=== PATIENT | female | born 1960 | race Caucasian/White ===

== ENCOUNTER → 2017-10-20 | Outpatient (CLI) | payer OTHER ==
[~2017-10-20] MED LIST: ALBUAER2 INH; AMLO-110 PO; ASPCH81X PO; CHOL2000 PO; FLUT50SP14 NAE; IPRA0.037 NAE; LEVO75TA5 PO; LOSA1TAB38 PO; MAGN500T4 PO; MOME200A INH; MULT-506 PO; PRLSR20 PO; PSEU60TA80 PO
--- NOTE | 2017-10-20 10:58 | DIAGNOSTIC IMAGING REPORT ---
SINUSES MIN 3 VIEWS ROUTINE CLINICAL HISTORY: Shortness of breath. COMPARISON STUDY: No previous studies for comparison. FINDINGS: Asymmetric diminished aeration of the right maxillary sinus is noted. There is a possible right maxillary sinus air-fluid level. Otherwise, the sinuses appear well aerated. IMPRESSION: Suspected right maxillary sinus mucosal thickening with a possible air-fluid level. Electronically signed by: Ted Joel M.D. 10/20/2017 10:56 AM Dictated Date/Time: 10/20/2017 10:54 AM
== END | disposition home or self-care (01) ==
LOC: C.RAD1850 10:43
PROVIDERS: ATTEND Internal Medicine Pulmonary Disease
DX: R06.02 Shortness of breath (principal); R93.0 Abnormal findings on diagnostic imaging of skull and head, not elsewhere classified

== ENCOUNTER → 2017-10-31 | Outpatient (CLI) | payer OTHER ==
[~2017-10-31] MED LIST changes: +OPTIRAY 320 IV PRN
--- NOTE | 2017-10-31 12:20 | DIAGNOSTIC IMAGING REPORT ---
CT SCAN OF THE CHEST WITH IV CONTRAST CLINICAL HISTORY: Dyspnea. Asthma. COMPARISON STUDY: Chest x-ray dated 10/23/2015. Abdominal CT dated 04/17/2012. TECHNIQUE: Following the IV administration of 87 cc of Optiray 320, CT scan of the thorax was performed from the thoracic inlet to the upper abdomen. Images are reviewed in the axial, sagittal, and coronal planes. IV contrast was administered without complication. A dose lowering technique was utilized adhering to the principles of ALARA. CT DOSE: 725.30 mGy.cm FINDINGS: Thyroid: Imaged portions of the thyroid gland are normal in size and attenuation. Subcentimeter low-attenuation nodules are identified. A coarse calcification is seen in the left lobe. Thoracic aorta: The thoracic aorta is normal in caliber and demonstrates standard 3-vessel arch anatomy. No dissection is seen. Pulmonary vasculature: The pulmonary trunk is normal in caliber. There are no filling defects identified in the central pulmonary vessels to indicate pulmonary embolus. Note that this examination was not protocoled for evaluation of the pulmonary arteries. Heart: The heart is normal in size and without pericardial effusion. The coronary arteries are densely calcified. Lungs and pleural spaces: There are scattered calcified granulomas. The lungs and pleural spaces are otherwise clear. The trachea and central airways are patent. Mediastinum: There is no mediastinal lymphadenopathy. Christine: Clear. Axillae: There is no axillary lymphadenopathy. Upper abdomen: Cholecystectomy clips are noted. Partially visualized upper abdominal viscera is within normal limits. Skeletal structures: The skeletal structures are osteopenic. Mild degenerative change is noted throughout the thoracic spine. No lytic or blastic bony lesions are seen. IMPRESSION: The lungs are clear. Electronically signed by: Reinaldo Gerber M.D. 10/31/2017 12:18 PM Dictated Date/Time: 10/31/2017 12:15 PM
[2017-10-31 12:26] LABS: PTT PATIENT 25.5 SECONDS (21.0-31.0)
[2017-10-31 12:39] LABS: ALBUMIN 3.9 gm/dl (3.4-5.0); ALT/SGPT 25 U/L (12-78); AST/SGOT 14 U/L (15-37); BLOOD UREA NITROGEN 23 mg/dl (7-18); CALCIUM 9.8 mg/dl (8.5-10.1); CARBON DIOXIDE 28 mmol/L (21-32); GLUCOSE 85 mg/dl (70-99); POTASSIUM 4.1 mmol/L (3.5-5.1); SODIUM 137 mmol/L (136-145)
[2017-10-31 12:40] LABS: BASO % 0.6 %; BASO ABS # 0.04 K/uL (0-0.2); EOS % 1.6 %; HEMATOCRIT 42.3 % (37-47); HEMOGLOBIN 14.6 g/dL (12.0-16.0); IG# 0.02 K/uL (0.00-0.02); LYMPH % 37.7 %; LYMPH ABS # 2.43 K/uL (1.2-3.4); MEAN CELL VOLUME 88.5 fL (80-100); MEAN CORPUSCULAR HEMOGLOBIN 30.5 pg (25-34); MEAN CORPUSCULAR HGB CONC 34.5 g/dl (32-36); MEAN PLATELET VOLUME 11.5 fL (7.4-10.4); MONO % 4.8 %; MONO ABS # 0.31 K/uL (0.11-0.59); NEUT ABS # 3.55 K/uL (1.4-6.5); PLATELET COUNT 234 K/uL (130-400); RED CELL DISTRIBUTION WIDTH CV 13.1 % (11.5-14.5); RED CELL DISTRIBUTION WIDTH SD 42.9 fL (36.4-46.3); WHITE BLOOD COUNT 6.45 K/uL (4.8-10.8)
[2017-10-31 12:51] LABS: ALKALINE PHOSPHATASE 89 U/L (45-117); TOTAL PROTEIN 7.6 gm/dl (6.4-8.2)
== END | disposition home or self-care (01) ==
LOC: C.CTS 10:21
PROVIDERS: ATTEND Internal Medicine Pulmonary Disease
DX: J45.909 Unspecified asthma, uncomplicated (principal)

== ENCOUNTER → 2017-11-11 | Day surgery (SDC) | payer OTHER ==
[2017-11-11] VITALS (7 sets, daily range): BP systolic 103–119; BP diastolic 61–72; PULSE 54–73; TEMP 36.3–37.1; O2SAT 93–100
[~2017-11-11] MED LIST changes: +FENTANYL CITRATE INJ 50 MCG/1 ML 2 ML VIAL IV ONE; +LEVALBUTEROL 1.25MG/3ML NEB INH ONE; +LIDOCAINE HCL 2% LOCAL 50ML VIAL INSTIL ONE; +LIDOCAINE VISCOUS 2% 100ML TOP ONE; +MIDAZOLAM HCL 5 MG/ML 1 ML VIAL IV ONE; -OPTIRAY 320 IV PRN; +OXYMETAZOLINE HCL 0.05% NA SPR 15 ML BTL ONE
--- NOTE | 2017-11-11 07:35 | History & Physical Bridge Note ---
H&P Re-Evaluation Bridge Note: I have examined the patient, reviewed the History & Physical and in the interval since the performance of the History & Physical I have noted the following changes of clinical significance: No changes noted
--- NOTE | 2017-11-11 07:35 | Pre Sedation Assessment ---
Pre Sedation Assessment General Date of Sedation: Nov 11, 2017. Pre-Sedation Airway Assessment Smoking Status: Former Smoker Mallampati Classification: Class II ASA Classification: Class III Procedure Planning Contraindications for Sedation: None Current Medications Reviewed: Yes Notes The planned sedation has been discussed with the patient. Informed Consent was obtained. I have identified the patient, determined the appropriateness of sedation and have assessed the patient immediately prior to the procedure. All medicine(s) and interventions are by my order.
--- NOTE | 2017-11-11 11:12 | [facility] Operative Report ---
Operative Report Operative Date Nov 11, 2017. Pre-Operative Diagnosis COUGH Post-Operative Diagnosis COUGH Procedure(s) Performed BRONCHOSCOPY Surgeon DR MAURER Estimated Blood Loss 0 Findings Chronic Mucopurulent Bronchitis Specimens LEFT UPPER LOBE BRONCHEAL ALVEOLAR LAVAGE AND BRUSHING Complication(s) None Disposition I attest to the content of the Intraoperative Record and any orders documented therein. Any exceptions are noted below.
--- NOTE | 2017-11-11 11:13 | Post Sedation Assessment ---
Post Sedation Assessment General Date of Sedation Nov 11, 2017. Vital Signs: Vital Signs Past 12 Hours Date Time Temp Pulse Resp B/P (MAP) Pulse Ox O2 Delivery O2 Flow Rate FiO2 11/11/17 11:03 75 18 119/67 99 Nasal Cannula 4 11/11/17 10:58 77 18 121/76 96 Nasal Cannula 4 11/11/17 10:53 71 21 127/80 99 Oxymask 6 11/11/17 10:48 75 18 135/84 98 Oxymask 6 11/11/17 10:43 80 18 139/83 96 Oxymask 12 11/11/17 10:38 80 18 124/70 96 Oxymask 12 11/11/17 10:33 78 23 142/84 95 Oxymask 12 11/11/17 10:31 69 23 139/82 94 Oxymask 6 11/11/17 09:46 36.9 67 20 108/72 (84) 97 Room Air Post Procedure Recovery Score Activity: (2) Moves 4 extremities * Respiration: (2) Deep breath/cough Circulation: (2) +/-20% PreAnes Value Consciousness: (2) Fully Awake Oxygen Saturation: (1) O2 needed for >90% Post Anesthesia Score: 9 Discharge Sedation Level of Care: Fast Track Phase II Post Sedation Plan On clinical assessment, the patient appears to have tolerated the sedation without complications. Patient is recovering as anticipated. Patient will continue to be monitored by nursing and may be discharged when sedation discharge criteria are met per below protocol. Upon Completions of procedure and additional 15 minutes continue every 5 minute vital signs and the P.A.R. score; then discharge to a Phase I or Fast Track to Phase II per the following guidelines: * Discharge Patient to appropriate Phase II area if PAR is 8 or greater or return to pre- procedure baseline. The post - procedure orders will be as directed. * If PAR score is less than 8 or not return to pre-procedure baseline then patient will follow Phase I monitoring till PAR is reached for Phase II. The Phase I may be done in procedure room or may call to secure a Phase I area. * If naloxone or flumazenil are used for reversal, hold in Phase I for an additional 60 -120 minutes before discharge to Phase II. Please call the Sedation Physician to re-evaluate and complete post-note for discharge to Phase II area. Do NOT discharge from procedure sedation or Phase 1 until post- sedation evaluation note is complete by procedure /sedation MD Sedation Discharge Instructions to be given to the patient at discharge to home.
--- NOTE | 2017-11-11 11:16 | Discharge Instructions ---
Discharge Instructions Date of Service Nov 11, 2017. Admission Reason for Admission: Asthma, Shortness Of Breath Discharge Discharge Diagnosis / Problem: Chronic Mucopurulent Bronchitis Discharge Goals Goal(s): Diagnostic testing Activity Recommendations Activity Limitations: resume your previous activity Lifting Limitations: none Exercise/Sports Limitations: none May Resume Sexual Activity: when tolerated Shower/Bathe: no limitations Driving or Machine Use: resume 1 day after discharge None . Instructions / Follow-Up Instructions / Follow-Up ACTIVITY RECOMMENDATIONS: * Rest today, resume normal activity tomorrow. * Do not drive today. SPECIAL CARE INSTRUCTIONS: * Call your physician if you experience any chest or shoulder pain, fever, coughing, spitting up blood (more than 2 teaspoons) or excessive shortness of breath. * Remove dressing from IV site (where needle was placed into the vein) after 2 hours. Apply a warm, moist compress to site if irritation occurs. Call physician if site becomes red or painful to touch. FOLLOW UP VISIT: * Keep any scheduled doctor appointments. Current Hospital Diet Patient's current hospital diet: regular Discharge Diet Recommended Diet: Regular Diet Procedures Procedures Performed: BRONCHOSCOPY Pending Studies Studies pending at discharge: no Medical Emergencies . Who to Call and When: Medical Emergencies: If at any time you feel your situation is an emergency, please call 911 immediately. . Non-Emergent Contact Non-Emergency issues call your: Remote Recruiter Call Non-Emergent contact if: temperature is above 101 . . "Provider Documentation" section prepared by Zaire West. .
--- NOTE | 2017-11-11 11:36 | OPERATIVE REPORT ---
DATE OF OPERATION: 11/11/2017 PROCEDURE: Fiberoptic bronchoscopy with bronchoalveolar lavage. INDICATIONS: Chronic cough and chest congestion in a previous smoker. ANESTHESIA PREOPERATIVELY: None. ANESTHESIA DURING THE PROCEDURE: IV Versed 5 mg, IV fentanyl 50 mcg, 20 mL of 2% Xylocaine spray above and below the cords, and 4% viscous Xylocaine intranasally. DESCRIPTION OF PROCEDURE: Fiberoptic bronchoscope was inserted into the right naris with minimal difficulty and passed to the level of the true vocal cords. The cords appear to approximate normally with phonation without evidence for lesions or paralysis. The area was anesthetized with 2% Xylocaine spray and the scope was then introduced into the subglottic region and trachea without difficulty. The dwight was sharp. Right main stem bronchus was explored initially and no endobronchial lesion was seen. Right upper lobe, the apical posterior-anterior segments, bronchus intermedius, right middle lobe, the medial and lateral segments and all basilar segments of the right lower lobe were found to be free of endobronchial lesions down to subsegmental bronchi. A moderate amount of mucopurulent secretion was lavaged from all lobar segments until clear. Left tracheobronchial tree was explored and no endobronchial lesion was seen. Left upper lobe and lingual subdivision showed moderate to severe inflammatory mucosal change with mild mucosal irregularity. This area was lavaged with normosol and the aspirate sent for appropriate studies. Brushings x2 were taken for cytologic preparation from the left upper lobe orifice. No biopsies were attempted. Left lower lobe with its respective basal segments were free of endobronchial lesions down to subsegmental bronchi. Left lower lobe was copiously lavaged with normosol and the aspirate sent for appropriate studies as well. The procedure was terminated. The patient was given a nebulizer treatment with Xopenex 1.25 mg and transferred to the medical treatment unit in hemodynamically stable. No signs of respiratory compromise. We will await microbiological and cytologic examination of the bronchial washings and brushings. I attest to the content of the Intraoperative Record and any orders documented therein. Any exception s are noted below.
== END | disposition home or self-care (01) ==
LOC: C.ACU 08:09
PROVIDERS: ATTEND Internal Medicine Pulmonary Disease
DX: R05 Cough (principal); R09.89 Other specified symptoms and signs involving the circulatory and respiratory systems; R06.02 Shortness of breath; I10 Essential (primary) hypertension; K21.0 Gastro-esophageal reflux disease with esophagitis; E66.01 Morbid (severe) obesity due to excess calories; J45.909 Unspecified asthma, uncomplicated; E78.5 Hyperlipidemia, unspecified; E03.9 Hypothyroidism, unspecified; Z87.891 Personal history of nicotine dependence; Z90.89 Acquired absence of other organs; Z90.49 Acquired absence of other specified parts of digestive tract; Z90.710 Acquired absence of both cervix and uterus; Z79.899 Other long term (current) drug therapy; Z79.82 Long term (current) use of aspirin; Z80.3 Family history of malignant neoplasm of breast; Z82.3 Family history of stroke; Z82.49 Family history of ischemic heart disease and other diseases of the circulatory system

== ENCOUNTER 2021-03-10 11:50 | Inpatient (IN) ==
[2021-03-10] MEDS ORDERED: ONDANSETRON INJ 2 MG/ML 2 ML VIAL IV STA (13:03)
[2021-03-10] MEDS ORDERED: SODIUM CHLORIDE 0.9% 500 ML IV STA (13:03)
--- NOTE | 2021-03-10 13:07 | Emergency Department Note ---
Impression & Plan Partial bowel obstruction, Colonic mass ED Provider Note NAME: JANINE DALTON AGE: 60 SEX: F : 1960 ARRIVES VIA: Walk-In INFORMANT: Patient, ED PROVIDER(S): Zaire Gomez DO CHIEF COMPLAINT: Abdominal pain HPI: The patient is a 60-year-old female who presented to the emergency department for an evaluation of left-sided abdominal pain. The patient states she is had abdominal pain which has been going on for a few months. She states that she went to see her family doctor for these symptoms. She had laboratory studies as well as a CAT scan done last week. The CAT scan she states was positive for possible colon mass. She is arranged to see a follow-up specialist but does not know when this appointment is. The patient notices nausea but no vomiting. She notices no black or bloody bowel movements. She states the pain is moderate to severe. She states she has no chest pain. She denies having any difficulty breathing. She is noticed no lower extremity swelling or pain. The patient states her symptoms are moderate to severe and worsened with palpation over the lower abdomen. ROS: See above HPI for pertinent positives & negatives. A total of 10 systems reviewed and were otherwise negative. PAST MEDICAL HISTORY: See Below PAST SURGICAL HISTORY: See Below FAMILY HISTORY: See Below SOCIAL HISTORY: See Below HOME MEDICATIONS: See Below ALLERGIES: See Below VITALS: See Below PHYSICAL EXAMINATION: GENERAL: The patient is awake and alert. She is very anxious appearing. EYES: The conjunctivae are clear. The pupils are round and reactive. EARS, NOSE, MOUTH AND THROAT: The nose is without any evidence of any deformity. NECK: The neck is nontender and supple. RESPIRATORY: Normal respiratory effort is noted there is no evidence of wheezing rhonchi or rales CARDIOVASCULAR: Regular rate and rhythm noted there no murmurs rubs or gallops normal S1 normal S2. GASTROINTESTINAL: Diminished moderately distended and diffusely tender. There is guarding in the left lower quadrant. MUSCULOSKELETAL/EXTREMITIES: There is no evidence of gross deformity full range of motion is noted in the hips and shoulders. SKIN: There is no obvious evidence of any rash. There are no petechiae, pallor or cyanosis noted. NEUROLOGIC: Patient is awake alert and oriented x3. MEDICAL DECISION MAKING: The patient is a 60-year-old female who presented to the emergency department for an evaluation of flank pain. The patient had abdominal pain for the last few weeks. She had an outpatient CT that did show a large colonic mass which was causing a partial obstruction. I discussed the patient's laboratory and radiographic studies with her. She was treated with IV fluids and IV pain medication. Ultimately I felt the patient would be better as an inpatient for further management and work-up of this colonic mass. She was reevaluated multip le times. I discussed her case with the on-call [facility]. They have agreed to evaluate the patient in the emergency department for further management and disposition. Likely the patient will require a tissue biopsy to further manage this case. Triage Nursing notes reviewed. Prior medical records reviewed Vital Signs: reviewed and remarkable for hypoxia and elevated blood pressure. Differential diagnosis: Etiologies such as appendicitis, diverticulitis, obstruction, inflammatory bowel disease, renal colic, PUD, biliary pathology, pancreatitis, mesenteric ischemia, aortic pathology, infections, genitourinary, UTI, perforated viscus, as well as others were entertained. ER treatment provided: See below Diagnostics interpreted by me: ECG: none Cardiac Monitoring: An order was placed for continuous cardiac monitoring. The monitor shows a rate of 65 bpm sinus with rhythm. Laboratory studies: As stated above and show below. Imaging studies: See below Consultation(s): 1415: I discussed this case with Dr. Virk who is on-call for the [facility]. He will evaluate the patient in the emergency department for further management and disposition. Past Med/Surg History Medical History Allergic rhinitis Asthma inhalers daily/prn and nebulizer prn Benign essential hypertension Chronic reflux esophagitis Chronic sinusitis Diverticulosis Dyslipidemia Elevated IgE level History of kidney stones History of pancreatitis "quite a few years ago" Hypothyroidism Irritable bowel syndrome Morbid obesity with BMI of 40.0-44.9, adult Osteoarthrosis Surgical History H/O: hysterectomy Total abdominal with removal of both ovaries History of ankle surgery left achilles tendon--hardware in place History of section x2 History of colonoscopy History of tooth extraction all teeth S/P appendectomy S/P cholecystectomy (01/2013) S/P sinus surgery January 2013 Family History Mother , age 72 Breast cancer, Onset Age: 60 Grandfather (Paternal) Diabetes Myocardial infarction Father Stroke Other No family history of adverse response to anesthesia Denies family history of Ovarian cancer Prostate cancer Lung cancer Colorectal cancer Social History Smoking Status: Former smoker packs per day: 0.25; Years Smoked: 6; Number of Years Since Quit: 33; Second Hand Exposure: No; Hx Alcohol Use: No Hx Substance Use: No Preferred Language: Ecuadorean Communication Ability: Effective Visual Impairment: No Limitations Hearing Ability: Normal Financial Analyst Intern Required: No Beliefs That Will Affect Care: None marital status: Current Living Situation: Spouse current occupational status: employed 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 Feels Safe at Home: Yes Childhood Exposure to Second-Hand Smoke: No Diet Comment: regular caffeine: Yes (coffee) during the past year weight has: remained stable Dental Care, Regularly: Yes Physical Activity Frequency: 3-4 Times per Week Physical Activity Frequency Comment: walking Seatbelt Use: always Sunscreen Use: No Assistive Devices: Denture - Upper, Denture - Lower, Glasses and Nebulizer Allergies Allergies Allergy/AdvReac Type Severity Reaction Status Date / Time oak Allergy Mild sneezy, Verified 03/10/21 13:45 watery eyes No Known Drug Allergies AdvReac Verified 03/10/21 13:45 DUST MITES Allergy Mild sneezy, Uncoded 03/10/21 13:45 watery eyes Home Meds Home Medications Medication Instructions Recorded Confirmed albuterol sulfate 90 mcg/actuation 2 puffs INHALATION Q4H PRN #3 gm 03/15/19 03/10/21 aerosol inhaler cholecalciferol (vitamin D3) 50 2,000 units PO QAM #90 cap 06/13/19 03/10/21 mcg (2,000 unit) capsule magnesium oxide 500 mg capsule 500 mg PO BID cap 06/13/19 03/10/21 amlodipine 5 mg tablet 5 mg PO QAM 03/10/21 03/10/21 aspirin 81 mg tablet,delayed 81 mg PO DAILY 03/10/21 03/10/21 release fluticasone propionate 50 2 sprays INTRANASAL BID 03/10/21 03/10/21 mcg/actuation nasal spray,suspension levothyroxine 75 mcg tablet 75 mcg PO QAM 03/10/21 03/10/21 losartan 100 mg tablet 100 mg PO QAM 03/10/21 03/10/21 montelukast 10 mg tablet 10 mg PO QPM 03/10/21 03/10/21 multivitamin 1 tab PO QAM 03/10/21 03/10/21 omeprazole 20 mg capsule,delayed 20 mg PO QAM 03/10/21 03/10/21 release Previous Rx's Medication Instructions Recorded albuterol sulfate 2.5 mg INHALATION Q4H PRN #1 box 04/27/19 ipratropium bromide 0.02 % 0.5 mg INHALATION Q4H PRN #360 ml 10/09/20 solution for inhalation diphenoxylate-atropine 2.5 1 tab PO QID PRN #360 tab 01/19/21 mg-0.025 mg tablet ipratropium bromide 21 mcg (0.03 2 spray INTRANASAL BID #90 ml 01/19/21 %) nasal spray sodium sul 1.479 gram-potas ch See Rx Instructions PO .COMPLEX 03/10/21 0.188 gram-magnes sul 0.225 gram #24 tab tablet (Sutab) Results & Data (ED) Vital Signs Vital Signs - 24 hr 03/10/21 11:55 03/10/21 13:41 03/10/21 14:37 Temperature 36.8 C Temperature Source Temporal Artery Scan Pulse Rate 114 H Pulse Rate [Right Finger] 62 Pulse Rhythm [Right Finger] Regular Pulse Strength [Right Finger] Normal Respiratory Rate 20 20 Respiratory Effort / Characteristics Non-Labored Non-Labored Spontaneous Respiratory Depth Normal Normal Respiratory Pattern Regular Blood Pressure 166/85 H Blood Pressure [Right Arm] 164/97 H Blood Pressure Mean 112 Blood Pressure Mean [Right Arm] 119 Blood Pressure Position Sitting Blood Pressure Position [Right Arm] Pulse Oximetry 92 100 Oxygen Delivery Method Room Air Room Air Nasal Cannula Oxygen Flow Rate 2 Sepsis Recent Fever Within 48 Hours No Sepsis New/Unexplained Change in Mental Status No Sepsis Action Taken by Nursing No Action Required 03/10/21 15:38 Temperature Temperature Source Pulse Rate Pulse Rate [Right Finger] 55 L Pulse Rhythm [Right Finger] Regular Pulse Strength [Right Finger] Normal Respiratory Rate 18 Respiratory Effort / Characteristics Non-Labored Spontaneous Respiratory Depth Normal Respiratory Pattern Regular Blood Pressure Blood Pressure [Right Arm] 164/97 H Blood Pressure Mean Blood Pressure Mean [Right Arm] 119 Blood Pressure Position Blood Pressure Position [Right Arm] Lying Pulse Oximetry 100 Oxygen Delivery Method Nasal Cannula Oxygen Flow Rate 2 Sepsis Recent Fever Within 48 Hours Sepsis New/Unexplained Change in Mental Status Sepsis Action Taken by [facility] Medications Current Medication List: was personally reviewed by me Laboratory Data Attestation: I reviewed the patient's lab results. Result diagrams: 03/10/21 12:53 03/10/21 12:53 Lab Results 03/10/21 03/10/21 03/10/21 Range/Units 12:53 12:53 14:30 WBC 8.77 (4.8-10.8) K/uL RBC 5.12 (4.2-5.4) M/uL Hgb 15.0 (12.0-16.0) g/dL Hct 44.2 (37-47) % MCV 86.3 (80-100) fL MCH 29.3 (25-34) pg MCHC 33.9 (32-36) g/dL RDW Std Deviation 42.0 (36.4-46.3) fL RDW Coeff of Mamadou 13.2 (11.5-14.5) % Plt Count 257 (130-400) K/uL MPV 10.8 H (7.4-10.4) fL Immature Gran % (Auto) 0.3 % Neut % (Auto) 70.4 % Lymph % (Auto) 21.0 % Otoe % (Auto) 7.5 % Eos % (Auto) 0.7 % Baso % (Auto) 0.1 % Neut # (Auto) 6.17 (1.4-6.5) K/uL Lymph # (Auto) 1.84 (1.2-3.4) K/uL Otoe # (Auto) 0.66 H (0.11-0.59) K/uL Eos # (Auto) 0.06 (0-0.5) K/uL Baso # (Auto) 0.01 (0-0.2) K/uL Immature Gran # (Auto) 0.03 H (0.00-0.02) K/uL Sodium 136 (136-145) mmol/L Potassium 3.4 L (3.5-5.1) mmol/L Chloride 105 (98-107) mmol/L Carbon Dioxide 27 (21-32) mmol/L Anion Gap 4.0 (3-11) BUN 17 (7-18) mg/dl Creatinine 1.56 H (0.6-1.2) mg/dl Est Cr Clr Drug Dosing 55.2 ml/min Est GFR ( Amer) 41.1 ml/min Est GFR (Non-Af Amer) 35.5 ml/min BUN/Creatinine Ratio 10.7 (10-20) Glucose 114 H (70-99) mg/dl Calcium 9.6 (8.5-10.1) mg/dl Total Bilirubin 1.1 H (0.2-1) mg/dl AST 26 (15-37) U/L ALT 22 (12-78) U/L Alkaline Phosphatase 92 (45-117) U/L Total Protein 8.0 (6.4-8.2) gm/dl Albumin 3.9 (3.4-5.0) gm/dl Globulin 4.1 H (2.5-4.0) gm/dl Albumin/Globulin Ratio 1.0 (0.9-2) Lipase 38 L (73-393) U/L COVID-19 Eval Order Covid19 at [facility] SARS-CoV-2 (PCR) (Negative) 03/10/21 Range/Units 14:30 WBC (4.8-10.8) K/uL RBC (4.2-5.4) M/uL Hgb (12.0-16.0) g/dL Hct (37-47) % MCV (80-100) fL MCH (25-34) pg MCHC (32-36) g/dL RDW Std Deviation (36.4-46.3) fL RDW Coeff of Mamadou (11.5-14.5) % Plt Count (130-400) K/uL MPV (7.4-10.4) fL Immature Gran % (Auto) % Neut % (Auto) % Lymph % (Auto) % Oto[place] % (Auto) % Eos % (Auto) % Baso % (Auto) % Neut # (Auto) (1.4-6.5) K/uL Lymph # (Auto) (1.2-3.4) K/uL Otoe # (Auto) (0.11-0.59) K/uL Eos # (Auto) (0-0.5) K/uL Baso # (Auto) (0-0.2) K/uL Immature Gran # (Auto) (0.00-0.02) K/uL Sodium (136-145) mmol/L Potassium (3.5-5.1) mmol/L Chloride (98-107) mmol/L Carbon Dioxide (21-32) mmol/L Anion Gap (3-11) BUN (7-18) mg/dl Creatinine (0.6-1.2) mg/dl Est Cr Clr Drug Dosing ml/min Est GFR ( Amer) ml/min Est GFR (Non-Af Amer) ml/min BUN/Creatinine Ratio (10-20) Glucose (70-99) mg/dl Calcium (8.5-10.1) mg/dl Total Bilirubin (0.2-1) mg/dl AST (15-37) U/L ALT (12-78) U/L Alkaline Phosphatase (45-117) U/L Total Protein (6.4-8.2) gm/dl Albumin (3.4-5.0) gm/dl Globulin (2.5-4.0) gm/dl Albumin/Globulin Ratio (0.9-2) Lipase (73-393) U/L COVID-19 Eval Order SARS-CoV-2 (PCR) NEGATIVE (Negative) Administered Medications Morphine Sulfate (Morphine Sulfate 4 Mg/Ml 1 Ml Carp\\Vial) 4 mg IV Q15M PRN PRN Reason: Pain Stop: 03/24/21 13:02 Last Admin: 03/10/21 17:45 Dose: 4 mg Documented by: [id number] Admin: 03/10/21 14:48 Dose: 4 mg Documented by: [id number] Admin: 03/10/21 13:10 Dose: 4 mg Documented by: [id number] Ondansetron HCl (Ondansetron Inj 2 Mg/Ml 2 Ml Vial) 4 mg IV Q6H PRN PRN Reason: nausea Stop: 04/09/21 15:50 Last Admin: 03/10/21 18:57 Dose: 4 mg Documented by: [id number] Discontinued Medications Sodium Chloride (Nss) 500 mls @ 999 mls/hr IV .Q31M STA Stop: 03/10/21 13:33 Last Infusion: 03/10/21 14:00 Dose: 0 mls/hr Documented by: [id number] Admin: 03/10/21 13:10 Dose: 999 mls/hr Documented by: [id number] Ioversol (Optiray 320 100ml) 93 ml IV ONCE ONE Stop: 03/10/21 19:28 Last Admin: 03/10/21 19:28 Dose: 93 ml Documented by: [id number] Ondansetron HCl (Ondansetron Inj 2 Mg/Ml 2 Ml Vial) 4 mg IV NOW STA Stop: 03/10/21 13:04 Last Admin: 03/10/21 13:10 Dose: 4 mg Documented by: [id number] Imaging Data Radiologist's Impression: KUB X-Ray 03/10/21 13:08 XR KUB/Abdomen 1 view CLINICAL HISTORY: LLQ pain COMPARISON STUDY: No previous studies for comparison. FINDINGS: Multiple nondilated gas and stool-filled loops of bowel are seen. Moderate amount of stool is seen within right hemiabdomen. Cholecystectomy clips are seen. No definite free intra-abdominal gas is seen however evaluation is limited on supine view, also bilateral lung apices are outside the [id number]. Degenerative changes of the spine. IMPRESSION: 1. Nonobstructive bowel gas pattern. ACT 112: Negative or not required by law. The above report was generated using voice recognition software. It may contain grammatical, syntax or spelling errors. Electronically signed by: Isatu Baldwin DO 03/10/2021 2:12 PM Discharge Plan Visit Data Chief Complaint: Abdominal Pain Stated Complaint: SEVERE STOMACH PAIN ED Provider: Zaire Gomez Discharge Problem: Partial bowel obstruction, Colonic mass Patient Disposition: Being Evaluated by Hospitalist Condition: Good Discharge Instructions Interventions: ED Discharge Assessment Last Done: 03/10/21 20:08
[2021-03-10 13:08] LABS: Basophils # (auto) 0.01 K/uL (0-0.2); Basophils % (auto) 0.1 %; Eosinophils # (auto) 0.06 K/uL (0-0.5); Eosinophils % (auto) 0.7 %; Hematocrit (blood only) 44.2 % (37-47); Immature Granulocytes # (auto) 0.03 K/uL (0.00-0.02); Immature Granulocytes % (auto) 0.3 %; Lymphocytes # (auto) 1.84 K/uL (1.2-3.4); Mean Corpuscular Hemoglobin 29.3 pg (25-34); Mean Corpuscular Hgb Conc 33.9 g/dL (32-36); Mean Corpuscular Volume 86.3 fL (80-100); Mean Platelet Volume 10.8 fL (7.4-10.4); Monocytes # (auto) 0.66 K/uL (0.11-0.59); Monocytes % (auto) 7.5 %; Neutrophils # (auto) 6.17 K/uL (1.4-6.5); Neutrophils % (auto) 70.4 %; Platelet Count 257 K/uL (130-400); RDW Coefficient of Variation 13.2 % (11.5-14.5); Red Blood Count 5.12 M/uL (4.2-5.4); White Blood Count 8.77 K/uL (4.8-10.8)
[2021-03-10] MEDS: MoRPHine SULFATE 4 MG/ML 1 ML CARP\\VIAL IV PRN ×3 (13:10→17:45)
[2021-03-10 13:26] LABS: Albumin Level 3.9 gm/dl (3.4-5.0); BUN Creatinine Ratio 10.7 (10-20); Calcium 9.6 mg/dl (8.5-10.1); Creatinine Clr Calc Pharmacy 55.2 ml/min; Est GFR (African American) 41.1 ml/min; Est GFR (Non-African American) 35.5 ml/min; Potassium 3.4 mmol/L (3.5-5.1)
[2021-03-10 13:29] LABS: Bilirubin,Total 1.1 mg/dl (0.2-1); Globulin 4.1 gm/dl (2.5-4.0)
--- NOTE | 2021-03-10 14:14 | XRay Report ---
XR KUB/Abdomen 1 view CLINICAL HISTORY: LLQ pain COMPARISON STUDY: No previous studies for comparison. FINDINGS: Multiple nondilated gas and stool-filled loops of bowel are seen. Moderate amount of stool is seen within right hemiabdomen. Cholecystectomy clips are seen. No definite free intra-abdominal gas is seen however evaluation is limited on supine view, also bilat eral lung apices are outside the [id number]. Degenerative changes of the spine. IMPRESSION: 1. Nonobstructive bowel gas pattern. ACT 112: Negative or not required by law. The above report was generated using voice recognition software. It may contain grammatical, syntax o r spelling errors. Electronically signed by: Isatu Baldwin DO 03/10/2021 2:12 PM
--- NOTE | 2021-03-10 16:11 | History & Physical Report ---
Date of Service March 10, 2021 Assessment & Plan (1) Intractable abdominal pain: Plan: * 60-year-old white female with ongoing abdominal pain and recent CT scan showing presumed colonic mass with obstructing pattern presented with intractable abdominal pain. KUB relatively benign; however, would expect bowel obstruction (mechanical). * Will obtain CT of the abdomen and pelvis to confirm * Patient will be kept n.p.o. for bowel rest * No need for NG tube at this time as pain is controlled with 1 dose of morphine. Abdomen is nondistended and she is not vomiting. If her clinical status changes, would advance an NG tube for bowel decompression * Initiate IV fluids * Consult GI and general surgery. Patient will likely need colonoscopy and possibly partial bowel resection. * Continue morphine as needed for pain and Zofran as needed for nausea * IV Ofirmev as needed for headache, fevers, pain * Given presumed colonic mass seen on imagingsuspect malignant in nature. Will obtain a CEA level for baseline (2) Hypokalemia: Plan: * Likely due to decreased oral intake and multiple loose bowels * Supplement with Anitha coronado and follow-up with lab data in a.m. to trend (3) CRISTI (acute kidney injury): Plan: * Likely related to volume depletion from poor oral intake and persistent loose bowels * IV hydration initiated * Follow-up labs in the a.m. to trend (4) Colonic mass: Plan: * See above (5) Hypothyroidism: Plan: * Hold oral meds for now given n.p.o. status (6) Irritable bowel syndrome: (7) Dyslipidemia: Plan: * Diet controlled (8) Benign essential hypertension: Plan: * Hold Norvasc due to n.p.o. status (9) Chronic reflux esophagitis: Plan: * Hold oral omeprazole and instead use IV PPI (pantoprazole) Plan: * Heparin for DVT prophylaxis. To be held in the event patient needs to be taken to the OR * Hold aspirin given n.p.o. status and possibility patient may need to be taken to the OR for partial bowel resection * Follow-up labs in the a.m. to trend * Plan of care briefly discussed with both GI and general surgery along with Dr. Virk History of Present Illness Chief Complaint: Abdominal pain X 1 month Primary Care Provider: Traci Patton DO Mrs. Norton is a 60-year-old white female with a past medical history of IBS, well-controlled asthma, HTN, hyperlipidemia, and hypothyroidism. She presented to the ED today complaining of left lower quadrant pain X 1 month. Was in her usual state of health when she saw her PCP in January for routine well visit. Had lab work and was started on fish oil for mildly elevated cholesterol levels. Immediately following, she developed abdominal discomfort that was constant. Was described as a dull ache and rated as a 4/10. She has IBS with predominant diarrhea but was having increasing loose stools at that time. Thought symptoms were related to the fish oil so she stopped. Despite this, her abdominal pain was progressive. Remained constant but now a 10/10. Had associated nausea without emesis. Symptoms worse with eating thus appetite has been poor. Having frequent and only loose stools. Given progression in abdominal pain, presented to the ED for further evaluation and care. Lab data reveals mild hypokalemia (3.4) with CRISTI (1.5 with a baseline of 1.1). Imaging done: KUB with nonobstructing pattern. Patient will be hospitalized for further evaluation and care. Allergies Allergy/AdvReac Type Severity Reaction Status Date / Time house dust mite Allergy Mild sneezy, Verified 03/12/21 12:07 watery eyes oak Allergy Mild sneezy, Verified 03/12/21 12:07 watery eyes No Known Drug Allergies AdvReac Unknown Verified 03/12/21 12:07 Home Medications Medication Instructions Recorded Confirmed Type albuterol sulfate 90 mcg/actuation 2 puffs INHALATION Q4H PRN #3 gm 03/15/19 03/10/21 History aerosol inhaler albuterol sulfate 2.5 mg INHALATION Q4H PRN #1 box 04/27/19 03/10/21 Rx cholecalciferol (vitamin D3) 50 2,000 units PO QAM #90 cap 06/13/19 03/10/21 History mcg (2,000 unit) capsule magnesium oxide 500 mg capsule 500 mg PO BID cap 06/13/19 03/10/21 History ipratropium bromide 0.02 % 0.5 mg INHALATION Q4H PRN #360 ml 10/09/20 03/10/21 Rx solution for inhalation diphenoxylate-atropine 2.5 1 tab PO QID PRN #360 tab 01/19/21 03/10/21 Rx mg-0.025 mg tablet ipratropium bromide 21 mcg (0.03 2 spray INTRANASAL BID #90 ml 01/19/21 03/10/21 Rx %) nasal spray amlodipine 5 mg tablet 5 mg PO QAM 03/10/21 03/10/21 History aspirin 81 mg tablet,delayed 81 mg PO DAILY 03/10/21 03/10/21 History release fluticasone propionate 50 2 sprays INTRANASAL BID 03/10/21 03/10/21 History mcg/actuation nasal spray,suspension levothyroxine 75 mcg tablet 75 mcg PO QAM 03/10/21 03/10/21 History losartan 100 mg tablet 100 mg PO QAM 03/10/21 03/10/21 History montelukast 10 mg tablet 10 mg PO QPM 03/10/21 03/10/21 History multivitamin 1 tab PO QAM 03/10/21 03/10/21 History omeprazole 20 mg capsule,delayed 20 mg PO QAM 03/10/21 03/10/21 History release sodium sul 1.479 gram-potas ch See Rx Instructions PO .COMPLEX 03/10/21 03/10/21 Rx 0.188 gram-magnes sul 0.225 gram #24 tab tablet (Sutab) Past Med/Surg History Medical History Allergic rhinitis Asthma inhalers daily/prn and nebulizer prn Benign essential hypertension Chronic reflux esophagitis Chronic sinusitis Diverticulosis Dyslipidemia Elevated IgE level History of kidney stones History of pancreatitis "quite a few years ago" Hypothyroidism Irritable bowel syndrome Morbid obesity with BMI of 40.0-44.9, adult Osteoarthrosis Surgical History H/O: hysterectomy Total abdominal with removal of both ovaries History of ankle surgery left achilles tendon--hardware in place History of section x2 History of colonoscopy History of tooth extraction all teeth S/P appendectomy S/P cholecystectomy (01/2013) S/P sinus surgery January 2013 Family History Mother , age 72 Breast cancer, Onset Age: 60 Grandfather (Paternal) Diabetes Myocardial infarction Father Stroke Other No family history of adverse response to anesthesia Denies family history of Ovarian cancer Prostate cancer Lung cancer Colorectal cancer Social History Smoking Status: Former smoker packs per day: 0.25; Years Smoked: 6; Number of Years Since Quit: 33; Second Hand Exposure: No; Hx Alcohol Use: No Hx Substance Use: No Preferred Language: Turkmen Communication Ability: Effective Visual Impairment: No Limitations Hearing Ability: Normal Glass Designer Required: No Beliefs That Will Affect Care: None marital status: Current Living Situation: Spouse current occupational status: employed 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 Feels Safe at Home: Yes Childhood Exposure to Second-Hand Smoke: No Diet Comment: regular caffeine: Yes (coffee) during the past year weight has: remained stable Dental Care, Regularly: Yes Physical Activity Frequency: 3-4 Times per Week Physical Activity Frequency Comment: walking Seatbelt Use: always Sunscreen Use: No Assistive Devices: Denture - Upper, Denture - Lower and Glasses Review of Systems Constitutional: All systems reviewed and are unremarkable except as noted in HPI and below Denies fevers, chills, headache, nasal congestion, sore throat, cough, chest pain, shortness of breath, vomiting, melena, hematochezia, dysuria, hematuria, frequency, skin lesions or rashes. Physical Exam Physical Exam: General: Resting comfortably in her hospital bed. Fairly comfortable following 1 dose of morphine. NAD. Neck: No JVD. Negative hepatojugular reflex Cardiac: RRR without M/G/R Lungs: CTA without W/R/R Abdomen: Abdomen is not distended. She has hypoactive bowel sounds throughout. Abdomen is soft and tender in the left lower quadrant. Referred pain to the left lower quadrant upon palpation to the right upper quadrant. Extremities: No peripheral clubbing cyanosis or edema Neuro: A&O X4 cranial nerves II through XII are grossly intact no focal neuro deficits Skin: No obvious skin lesions or rashes Results & Data Results & Data ([facility]) Vital Signs (Past 12 Hours) Vital Signs Temp Pulse Pulse Resp BP BP Pulse Ox 03/10/21 15:38 55 L 18 164/97 H 100 03/10/21 14:37 62 20 164/97 H 100 03/10/21 11:55 36.8 C 114 H 20 166/85 H 92 Laboratory Results 03/10/21 12:53 03/10/21 12:53 Diagnostic Findings KUB: IMPRESSION: 1. Nonobstructive bowel gas pattern. CT of the abdomen and pelvis reviewed from 03/06/2021: FINDINGS: No pneumatosis, free air or portal venous gas is present. No hepatic lesions are present. The spleen, adrenal glands, kidneys and pancreas are unrem arkable. Note is made of extensive retrocrural, retroperitoneal and mesenteric lymphadenopathy. Many of these nodes are necrotic. Index retrocrural lymph node measures 2 x 1.5 cm. Index ileocolic node measures 2 x 1.9 cm. Index central mesenteric node measures 1.9 x 1.7 cm. There is infiltration adjacent to the hepatic flexure of the colon as well as the pancreas and duodenum. The cecum and proximal to mid ascending colon are moderately distended. There is transition point within the hepatic flexure of the colon with suspected underlying mucosal lesion within the hepatic flexure of the colon which extends for approximately 4 cm. There is no abscess. There is no free air. Major vasculature is patent. There is colonic diverticulosis without evidence for acute diverticulitis. No suspicious lesions are identified within visualized skeletal structures. IMPRESSION: 1. Moderately distended cecum and ascending colon with transition point within the hepatic flexure with suspected underlying colonic lesion which extends for approximately 4 cm. The findings are worrisome for a colonic neoplasm such as adenocarcinoma which may result in partial colonic obstruction. GI consultation for consideration for colonoscopy is recommended. These findings will be called/faxed to ordering provider at time of dictation. 2. Extensive mesenteric, retroperitoneal and retrocrural lymphadenopathy. Many of these nodes are necrotic. These are consistent with a neoplastic process and likely reflect yamel spread of malignancy although the degree of lymphadenopathy is somewhat unusual for colonic adenocarcinoma. Lymphoma is considered less likely. 3. Upper abdominal infiltration adjacent to the duodenum, right colon and mesentery which is likely related to the neoplasm or the partial colonic obstruc tion. Medications Administered Morphine sulfate 4 mg IV X1 Zofran 4 mg IV X1 NSS 500 mg IV bolus Code Status & VTE Plan VTE Prophylaxis Plan VTE Prophylaxis will be ordered: Yes Supervising Physician Co-Signing Physician Notes Discussed with AUGUSTIN, reviewed her documentation. Agree with the note above. 60-year-old female with known colonic mass undergoing outpatient work-up, now here for acute abdominal pain. CT scan shows possible partial bowel obstruction secondary to mass. Patient to be admitted for further work-up. Consult GI and general surgery. May need to consider colonoscopy while here for biopsy versus possible need for resection. Will defer this to special services. Okay with deferring NG tube as patient is not actively vomiting although if her abdominal pain does continue to worsen may need to reconsider this. Agree with n.p.o. for now. PG Care Time/CCT Total # of Minutes Spent Total Time Spent with Patient: Total time spent is greater than 50% in coordination of care (as documented) at patient's floor/unit and/or counseling patient: [place] [address] Initial Inpt Care Lvl 3 Patient Type New Medical Decision Making High Complexity Diagnoses Intractable abdominal pain R10.9 Hypokalemia E87.6 CRISTI (acute kidney injury) N17.9 Colonic mass K63.89 Hypothyroidism E03.9 Irritable bowel syndrome K58.0 Irritable bowel syndrome type: with diarrhea Dyslipidemia E78.5 Benign essential hypertension I10 Chronic reflux esophagitis K21.0 (1) Irritable bowel syndrome Irritable bowel syndrome type: with diarrhea Qualified Code(s): K58.0 - Irritable bowel syndrome with diarrhea
[2021-03-10] MEDS: ONDANSETRON INJ 2 MG/ML 2 ML VIAL IV PRN (18:57)
[2021-03-10] MEDS ORDERED: OPTIRAY 320 100ml IV ONE (19:27)
--- NOTE | 2021-03-10 19:51 | CT Scan Report ---
CT OF THE ABDOMEN AND PELVIS WITH CONTRAST CLINICAL HISTORY: Abdominal pain. suspect bowel obstruction. benign kub COMPARISON STUDY: CT of the abdomen and pelvis March 06, 2021. KUB performed earlier today. TECHNIQUE: Following IV administration of 93 mL of Optiray, axial images of the abdomen and pelvis we re obtained from the lung bases to the proximal femurs. Images were reviewed in the axial, sagittal, and coronal planes. IV contrast was administered without complication. Automated exposure control wa s utilized for the study. A dose lowering technique was utilized adhering to the principles of ALARA . Oral contrast was administered. CT DOSE: 1353.86 mGycm FINDINGS: No pneumatosis, free air or portal venous gas is present. No hepatic lesions are present. T here is no biliary ductal dilatation status post cholecystectomy. There is pancreatic glandular atrop hy. The spleen, adrenal glands and kidneys are unremarkable. There is no hydronephrosis. Note is agai n made of numerous enlarged retrocrural, mesenteric and retroperitoneal lymph nodes. Several of these lymph nodes are necrotic. This is similar to prior exam of March 06, 2021. Adjacent infiltration is a gain noted with trace ascites. Note is again made of wall thickening of the hepatic flexure of the co sylvie and the proximal colon the cecum and ascending colon are moderately distended. Caliber change at the level of the hepatic flexure suspected. Contrast reaches the cecum. There is no evidence for a sm all bowel obstruction. Major vasculature is patent. There is colonic diverticulosis without evidence for acute diverticulitis. IMPRESSION: 1. No change in moderate distention of the cecum and ascending colon with probable transition point w ithin the hepatic flexure with wall thickening of the hepatic flexure of the colon and the proximal t ransverse colon. The findings are worrisome for underlying colonic lesion which may result in a parti al colonic obstruction. GI consultation for consideration for colonoscopy is recommended. 2. No change in extensive mesenteric, retroperitoneal and retrocrural lymphadenopathy. This is consis tent with a neoplastic process and likely reflects yamel spread of malignancy. Lymphoma is within the differential but considered less likely. 3. Trace ascites. Abdominal infiltration, similar to prior exam. ACT 112: Negative or not required by law. Electronically signed by: Ted Joel M.D. 03/10/2021 7:49 PM
[2021-03-10] MEDS ORDERED: ALBUTEROL 0.083% NEBU SOLN 3 ML VIAL INH PRN (20:46)
[2021-03-10] MEDS ORDERED: POTASSIUM CHLORIDE / WTR 20 MEQ/100 ML PLCT IV ONE (20:46)
[2021-03-10] MEDS ORDERED: ACETAMINOPHEN 1,000 MG/100 ML VIAL IV PRN (20:46)
[2021-03-10] MEDS ORDERED: PROMETHAZINE HCL 12.5 MG in SODIUM CHLORIDE 0.9% 50 ML IV ONE (21:45)
[2021-03-10] MEDS: D5W AND 1/2NSS 1,000 ML IV SCH (21:59)
[2021-03-10] MEDS: PANTOprazole 40 MG in SYRINGE 0 ML IV SCH (22:03)
[2021-03-10] MEDS: POTASSIUM CHLORIDE / WTR 10 MEQ/100 ML PLCT IV SCH (23:06)
[2021-03-10] MEDS: HEPARIN SOD 5,000 UNIT/0.5 ML VIAL SQ SCH (23:09)
[2021-03-11] MEDS: POTASSIUM CHLORIDE / WTR 10 MEQ/100 ML PLCT IV SCH (00:02)
[2021-03-11 03:16] LABS: Appearance Urine Clear (Clear); Bilirubin Urine Negative (Negative); Blood Urine Negative (Negative); Color Urine Yellow; Glucose Urine UA Negative (Negative); Ketones Urine Negative (Negative); Leukocyte Esterase Urine Negative (Negative); Nitrite Urine Negative (Negative); Protein Urine Negative (Negative); Specific Gravity Urine 1.027 (1.000-1.030); Urobilinogen Urine Negative (Negative); pH Urine 6.5 (4.5-7.5)
[2021-03-11 07:26] LABS: Basophils # (auto) 0.02 K/uL (0-0.2); Basophils % (auto) 0.4 %; Eosinophils # (auto) 0.04 K/uL (0-0.5); Eosinophils % (auto) 0.8 %; Hematocrit (blood only) 37.7 % (37-47); Hemoglobin 12.4 g/dL (12.0-16.0); Immature Granulocytes # (auto) 0.02 K/uL (0.00-0.02); Immature Granulocytes % (auto) 0.4 %; Lymphocytes % (auto) 21.4 %; Mean Corpuscular Hemoglobin 28.8 pg (25-34); Mean Corpuscular Hgb Conc 32.9 g/dL (32-36); Mean Corpuscular Volume 87.5 fL (80-100); Mean Platelet Volume 10.2 fL (7.4-10.4); Monocytes # (auto) 0.45 K/uL (0.11-0.59); Monocytes % (auto) 8.8 %; Neutrophils # (auto) 3.51 K/uL (1.4-6.5); Neutrophils % (auto) 68.2 %; Platelet Count 174 K/uL (130-400); RDW Coefficient of Variation 13.3 % (11.5-14.5); RDW Standard Deviation 42.9 fL (36.4-46.3); Red Blood Count 4.31 M/uL (4.2-5.4); White Blood Count 5.14 K/uL (4.8-10.8)
[2021-03-11] MEDS: HEPARIN SOD 5,000 UNIT/0.5 ML VIAL SQ SCH ×2 (07:56→21:17)
[2021-03-11] MEDS: PANTOprazole 40 MG in SYRINGE 0 ML IV SCH ×2 (07:57→21:17)
[2021-03-11] MEDS: MoRPHine SULFATE 2 MG/ML CARP IV PRN ×2 (07:57→22:42)
[2021-03-11 08:01] LABS: BUN Creatinine Ratio 12.1 (10-20); Calcium 8.3 mg/dl (8.5-10.1); Creatinine Clr Calc Pharmacy 64.9 ml/min; Est GFR (African American) 49.9 ml/min; Magnesium 2.2 mg/dl (1.8-2.4); Potassium 3.5 mmol/L (3.5-5.1)
--- NOTE | 2021-03-11 10:02 | Gastrointestinal Consultation ---
Date of Consultation March 11, 2021 Assessment & Plan (1) Abnormal CT scan, colon: -Liquid diet today, NPO after midnight with exception of bowel prep -Prep tonight for colonoscopy tomorrow as previously planned -Agree that patient does not need an NG tube at present, however if developing nausea/vomiting with bowel prep can consider NG tube. Supervising Physician Co-Signing Physician Notes Agree with ANSELMO Moore as above Abd: Soft, Tender RLQ, ND, +BS Continue current therapy and supportive care Clear liquids today Bowel prep tonight NPO following bowel prep for colonoscopy in the AM History of Present Illness Reason for Consultation: Suspected colon mass Attending Physician: Beto Bowie, DO History of Present Illness Patient is a 60 yo female with PMH of IBS, asthma, HTN, HLD, and hyopthyroidism who presented to the ED with worsening lower abdominal pain. The patient had been having pain for several weeks. She notes that last week, she sought evaluation from her PCP for this issue. She had a CT scan that suggested a possible partial obstruction vs colon mass. She notes that she was to have an outpatient colonoscopy on 03/12/21, unfortunately her abdominal pain worsened significantly. She notes her pain was a 10/10 dull pain that was located in the LLQ and occasionally on the right side of her abdomen. Symptoms have improved with pain control since hospitalization. She reports loose stools daily over the past several weeks. She denies rectal bleeding, nausea, or vomiting. She had a colonoscopy in 2015 that was unremarkable for acute issues. A CT scan indicated moderate distention of the cecum and ascending colon with probable transition point within the hepatic flexure with wall thickening of the hepatic flexure of the colon and the proximal transverse colon. The findings are worrisome for underlying colonic lesion which may result in a partial colonic obstruction. Allergies Allergy/AdvReac Type Severity Reaction Status Date / Time house dust mite Allergy Mild sneezy, Verified 03/11/21 10:42 watery eyes oak Allergy Mild sneezy, Verified 03/10/21 13:45 watery eyes No Known Drug Allergies AdvReac Unknown Verified 03/11/21 10:42 Home Medications Medication Instructions Recorded Confirmed Type albuterol sulfate 90 mcg/actuation 2 puffs INHALATION Q4H PRN #3 gm 03/15/19 03/10/21 History aerosol inhaler albuterol sulfate 2.5 mg INHALATION Q4H PRN #1 box 04/27/19 03/10/21 Rx cholecalciferol (vitamin D3) 50 2,000 units PO QAM #90 cap 06/13/19 03/10/21 History mcg (2,000 unit) capsule magnesium oxide 500 mg capsule 500 mg PO BID cap 06/13/19 03/10/21 History ipratropium bromide 0.02 % 0.5 mg INHALATION Q4H PRN #360 ml 10/09/20 03/10/21 Rx solution for inhalation diphenoxylate-atropine 2.5 1 tab PO QID PRN #360 tab 01/19/21 03/10/21 Rx mg-0.025 mg tablet ipratropium bromide 21 mcg (0.03 2 spray INTRANASAL BID #90 ml 01/19/21 03/10/21 Rx %) nasal spray amlodipine 5 mg tablet 5 mg PO QAM 03/10/21 03/10/21 History aspirin 81 mg tablet,delayed 81 mg PO DAILY 03/10/21 03/10/21 History release fluticasone propionate 50 2 sprays INTRANASAL BID 03/10/21 03/10/21 History mcg/actuation nasal spray,suspension levothyroxine 75 mcg tablet 75 mcg PO QAM 03/10/21 03/10/21 History losartan 100 mg tablet 100 mg PO QAM 03/10/21 03/10/21 History montelukast 10 mg tablet 10 mg PO QPM 03/10/21 03/10/21 History multivitamin 1 tab PO QAM 03/10/21 03/10/21 History omeprazole 20 mg capsule,delayed 20 mg PO QAM 03/10/21 03/10/21 History release sodium sul 1.479 gram-potas ch See Rx Instructions PO .COMPLEX 03/10/21 03/10/21 Rx 0.188 gram-magnes sul 0.225 gram #24 tab tablet (Sutab) Patient History Medical History Allergic rhinitis Asthma inhalers daily/prn and nebulizer prn Benign essential hypertension Chronic reflux esophagitis Chronic sinusitis Diverticulosis Dyslipidemia Elevated IgE level History of kidney stones History of pancreatitis "quite a few years ago" Hypothyroidism Irritable bowel syndrome Morbid obesity with BMI of 40.0-44.9, adult Osteoarthrosis Surgical History H/O: hysterectomy Total abdominal with removal of both ovaries History of ankle surgery left achilles tendon--hardware in place History of section x2 History of colonoscopy History of tooth extraction all teeth S/P appendectomy S/P cholecystectomy (01/2013) S/P sinus surgery January 2013 Family History Mother , age 72 Breast cancer, Onset Age: 60 Grandfather (Paternal) Diabetes Myocardial infarction Father Stroke Other No family history of adverse response to anesthesia Denies family history of Ovarian cancer Prostate cancer Lung cancer Colorectal cancer Social History Smoking Status: Former smoker packs per day: 0.25; Years Smoked: 6; Number of Years Since Quit: 33; Second Hand Exposure: No; Do You Dip or Chew Tobacco: No; Tobacco Cessation Education Requested by Patient: No Hx Alcohol Use: No Hx Substance Use: No Preferred Language: Ecuadorean Communication Ability: Effective Visual Impairment: No Limitations Hearing Ability: Normal Sharepoint Consultant Required: No Beliefs That Will Affect Care: None marital status: Current Living Situation: Spouse current occupational status: employed 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 Other Information That Helps Us Care for You: No Feels Safe at Home: Yes Safety Concerns: Feels Safe At This Time Childhood Exposure to Second-Hand Smoke: No Diet Comment: regular caffeine: Yes (coffee) during the past year weight has: remained stable Dental Care, Regularly: Yes Physical Activity Frequency: 3-4 Times per Week Physical Activity Frequency Comment: walking Seatbelt Use: always Sunscreen Use: No Assistive Devices: Denture - Upper, Denture - Lower and Glasses Review of Systems Constitutional: no fever and no chills Respiratory: no cough and no dyspnea Cardiovascular: no chest pain Gastrointestinal: + abdominal pain and + diarrhea/loose stools; no nausea, no vomiting and no blood in stools Psychiatric: no problem reported Hematologic / Lymphatic: no unexplained weight loss Physical Exam Constitutional: WD/WN, vitals as above Respiratory: normal respiratory effort, lungs clear to auscultation Cardiovascular: Extremities: no edema Gastrointestinal (Abdomen): normal bowel sounds, soft, nontender, no hepatosplenomegaly Musculoskeletal: no cyanosis or clubbing, extremities motor strength 5/5 Psychiatric: Orientation: alert and oriented x 3 Results & Data ([facility]) Vital Signs (Past 12 Hours) Vital Signs Temp Pulse Resp BP Pulse Ox 03/11/21 07:41 36.7 C 80 17 133/83 97 03/10/21 23:00 36.6 C 56 L 17 123/77 92 PG Care Time/CCT Total # of Minutes Spent Total Time Spent with Patient: Total time spent is greater than 50% in coord ination of care (as documented) at patient's floor/unit and/or counseling patient: Coding Level of Care Code 84234 Inpt Consult Level [address] scan, colon R93.3
[2021-03-11] MEDS: D5W AND 1/2NSS 1,000 ML IV SCH ×2 (10:36→22:39)
--- NOTE | 2021-03-11 11:10 | Surgery Consultation ---
Date of Consultation March 11, 2021 Assessment & Plan (1) Abnormal CT scan, colon: (2) Partial bowel obstruction: (3) Colonic mass: This a 60 year-old female who was admitted to hospital for one month history abdominal pain, CT scan finding- hepatic flexure colon thickening, possible colon mass, CEA 158. IMP: colon mass, partial SBO, base on CT scan finding- extensive mesenteric, retroperitoneal and retrocrural lymphadenopathy. This is consistent with a neoplastic process and likely reflects yamel spread of malignancy, I recommend to consult colorectal surgeon for her surgery treatment, resection colon mass and possible mesenteric, retroperitoneal lymph node dissection, for best outcome, pt needs to transfer to [facility] [place] D/W benefits, risks and alternatives of the transfer, pt understood, she agrees with the transfer, I answered all questions, sign off today, please call with questions, thanks, Supervising Physician Co-Signing Physician Notes Discussed with AUGUSTIN, reviewed her documentation. Agree with the note above. 60-year-old female with known colonic mass undergoing outpatient work-up, now here for acute abdominal pain. CT scan shows possible partial bowel obstruction secondary to mass. Patient to be admitted for further work-up. Consult GI and general surgery. May need to consider colonoscopy while here for biopsy versus possible need for resection. Will defer this to special services. Okay with deferring NG tube as patient is not actively vomiting although if her abdominal pain does continue to worsen may need to reconsider this. Agree with n.p.o. for now. History of Present Illness Reason for Consultation: abdominal pain, colon mass Requesting Physician: Finn Bowie DO Attending Physician: Beto Bowie DO History of Present Illness Chief Complaint: Abdominal pain X 1 month Primary Care Provider: Traci Patton DO Mrs. Norton is a 60-year-old white female with a past medical history of IBS, well-controlled asthma, HTN, hyperlipidemia, and hypothyroidism. She presented to the ED today complaining of left lower quadrant pain X 1 month. Was in her usual state of health when she saw her PCP in January for routine well visit. Had lab work and was started on fish oil for mildly elevated cholesterol levels. Immediately following, she developed abdominal discomfort that was constant. Was described as a dull ache and rated as a 4/10. She has IBS with predominant diarrhea but was having increasing loose stools at that time. Thought symptoms were related to the fish oil so she stopped. Despite this, her abdominal pain was progressive. Remained constant but now a 10/10. Had associated nausea without emesis. Symptoms worse with eating thus appetite has been poor. Having frequent and only loose stools. Given progression in abdominal pain, presented to the ED for further evaluation and care. Lab data reveals mild hypokalemia (3.4) with CRISTI (1.5 with a baseline of 1.1). Imaging done: KUB with nonobstructing pattern. Patient will be hospitalized for further evaluation and care. I (Sonia Roman MD ) got a call for consult abdominal pain and colon mass, I reviewed pt's H/P, Labs, CT scan with pt, pt is still have mild pain at RLQ area,pt had colonoscopy 5 years ago, pt had BM this morning, no bloody stool, Allergies Allergy/AdvReac Type Severity Reaction Status Date / Time oak Allergy Mild sneezy, Verified 03/10/21 13:45 watery eyes No Known Drug Allergies AdvReac Verified 03/10/21 13:45 DUST MITES Allergy Mild sneezy, Uncoded 03/10/21 13:45 watery eyes Home Medications Medication Instructions Recorded Confirmed Type albuterol sulfate 90 mcg/actuation 2 puffs INHALATION Q4H PRN #3 gm 03/15/19 03/10/21 History aerosol inhaler albuterol sulfate 2.5 mg INHALATION Q4H PRN #1 box 04/27/19 03/10/21 Rx cholecalciferol (vitamin D3) 50 2,000 units PO QAM #90 cap 06/13/19 03/10/21 History mcg (2,000 unit) capsule magnesium oxide 500 mg capsule 500 mg PO BID cap 06/13/19 03/10/21 History ipratropium bromide 0.02 % 0.5 mg INHALATION Q4H PRN #360 ml 10/09/20 03/10/21 Rx solution for inhalation diphenoxylate-atropine 2.5 1 tab PO QID PRN #360 tab 01/19/21 03/10/21 Rx mg-0.025 mg tablet ipratropium bromide 21 mcg (0.03 2 spray INTRANASAL BID #90 ml 01/19/21 03/10/21 Rx %) nasal spray amlodipine 5 mg tablet 5 mg PO QAM 03/10/21 03/10/21 History aspirin 81 mg tablet,delayed 81 mg PO DAILY 03/10/21 03/10/21 History release fluticasone propionate 50 2 sprays INTRANASAL BID 03/10/21 03/10/21 Hist ory mcg/actuation nasal spray,suspension levothyroxine 75 mcg tablet 75 mcg PO QAM 03/10/21 03/10/21 History losartan 100 mg tablet 100 mg PO QAM 03/10/21 03/10/21 History montelukast 10 mg tablet 10 mg PO QPM 03/10/21 03/10/21 History multivitamin 1 tab PO QAM 03/10/21 03/10/21 History omeprazole 20 mg capsule,delayed 20 mg PO QAM 03/10/21 03/10/21 History release sodium sul 1.479 gram-potas ch See Rx Instructions PO .COMPLEX 03/10/21 03/10/21 Rx 0.188 gram-magnes sul 0.225 gram #24 tab tablet (Sutab) Past Med/Surg History Medical History Allergic rhinitis Asthma inhalers daily/prn and nebulizer prn Benign essential hypertension Chronic reflux esophagitis Chronic sinusitis Diverticulosis Dyslipidemia Elevated IgE level History of kidney stones History of pancreatitis "quite a few years ago" Hypothyroidism Irritable bowel syndrome Morbid obesity with BMI of 40.0-44.9, adult Osteoarthrosis Surgical History H/O: hysterectomy Total abdominal with removal of both ovaries History of ankle surgery left achilles tendon--hardware in place History of section x2 History of colonoscopy History of tooth extraction all teeth S/P appendectomy S/P cholecystectomy (01/2013) S/P sinus surgery January 2013 Family History Mother , age 72 Breast cancer, Onset Age: 60 Grandfather (Paternal) Diabetes Myocardial infarction Father Stroke Other No family history of adverse response to anesthesia Denies family history of Ovarian cancer Prostate cancer Lung cancer Colorectal cancer Social History Smoking Status: Former smoker packs per day: 0.25; Years Smoked: 6; Number of Years Since Quit: 33; Second Hand Exposure: No; Hx Alcohol Use: No Hx Substance Use: No Preferred Language: Ukrainian Communication Ability: Effective Visual Impairment: No Limitations Hearing Ability: Normal Preschool Associate Teacher Required: No Beliefs That Will Affect Care: None marital status: Current Living Situation: Spouse current occupational status: employed 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 Feels Safe at Home: Yes Childhood Exposure to Second-Hand Smoke: No Diet Comment: regular caffeine: Yes (coffee) during the past year weight has: remained stable Dental Care, Regularly: Yes Physical Activity Frequency: 3-4 Times per Week Physical Activity Frequency Comment: walking Seatbelt Use: always Sunscreen Use: No Assistive Devices: Denture - Upper, Denture - Lower, Glasses and Nebulizer Review of Systems Constitutional: All systems reviewed and are unremarkable except as noted in HPI and below Denies fevers, chills, headache, nasal congestion, sore throat, cough, chest pain, shortness of breath, vomiting, melena, hematochezia, dysuria, hematuria, frequency, skin lesions or rashes. Allergies Allergy/AdvReac Type Severity Reaction Status Date / Time house dust mite Allergy Mild sneezy, Verified 03/11/21 10:42 watery eyes oak Allergy Mild sneezy, Verified 03/10/21 13:45 watery eyes No Known Drug Allergies AdvReac Unknown Verified 03/11/21 10:42 Home Medications Medication Instructions Recorded Confirmed Type albuterol sulfate 90 mcg/actuation 2 puffs INHALATION Q4H PRN #3 gm 03/15/19 03/10/21 History aerosol inhaler albuterol sulfate 2.5 mg INHALATION Q4H PRN #1 box 04/27/19 03/10/21 Rx cholecalciferol (vitamin D3) 50 2,000 units PO QAM #90 cap 06/13/19 03/10/21 History mcg (2,000 unit) capsule magnesium oxide 500 mg capsule 500 mg PO BID cap 06/13/19 03/10/21 History ipratropium bromide 0.02 % 0.5 mg INHALATION Q4H PRN #360 ml 10/09/20 03/10/21 Rx solution for inhalation diphenoxylate-atropine 2.5 1 tab PO QID PRN #360 tab 01/19/21 03/10/21 Rx mg-0.025 mg tablet ipratropium bromide 21 mcg (0.03 2 spray INTRANASAL BID #90 ml 01/19/21 03/10/21 Rx %) nasal spray amlodipine 5 mg tablet 5 mg PO QAM 03/10/21 03/10/21 History aspirin 81 mg tablet,delayed 81 mg PO DAILY 03/10/21 03/10/21 History release fluticasone propionate 50 2 sprays INTRANASAL BID 03/10/21 03/10/21 History mcg/actuation nasal spray,suspension levothyroxine 75 mcg tablet 75 mcg PO QAM 03/10/21 03/10/21 History losartan 100 mg tablet 100 mg PO QAM 03/10/21 03/10/21 History montelukast 10 mg tablet 10 mg PO QPM 03/10/21 03/10/21 History multivitamin 1 tab PO QAM 03/10/21 03/10/21 History omeprazole 20 mg capsule,delayed 20 mg PO QAM 03/10/21 03/10/21 History release sodium sul 1.479 gram-potas ch See Rx Instructions PO .COMPLEX 03/10/21 03/10/21 Rx 0.188 gram-magnes sul 0.225 gram #24 tab tablet (Sutab) Patient History Medical History Allergic rhinitis Asthma inhalers daily/prn and nebulizer prn Benign essential hypertension Chronic reflux esophagitis Chronic sinusitis Diverticulosis Dyslipidemia Elevated IgE level History of kidney stones History of pancreatitis "quite a few years ago" Hypothyroidism Irritable bowel syndrome Morbid obesity with BMI of 40.0-44.9, adult Osteoarthrosis Surgical History H/O: hysterectomy Total abdominal with removal of both ovaries History of ankle surgery left achilles tendon--hardware in place History of section x2 History of colonoscopy History of tooth extraction all teeth S/P appendectomy S/P cholecystectomy (01/2013) S/P sinus surgery January 2013 Family History Mother , age 72 Breast cancer, Onset Age: 60 Grandfather (Paternal) Diabetes Myocardial infarction Father Stroke Other No family history of adverse response to anesthesia Denies family history of Ovarian cancer Prostate cancer Lung cancer Colorectal cancer Social History Smoking Status: Former smoker packs per day: 0.25; Years Smoked: 6; Number of Years Since Quit: 33; Second Hand Exposure: No; Do You Dip or Chew Tobacco: No; Tobacco Cessation Education Requested by Patient: No Hx Alcohol Use: No Hx Substance Use: No Preferred Language: Ukrainian Communication Ability: Effective Visual Impairment: No Limitations Hearing Ability: Normal Preschool Associate Teacher Required: No Beliefs That Will Affect Care: None marital status: Current Living Situation: Spouse current occupational status: employed 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 Other Information That Helps Us Care for You: No Feels Safe at Home: Yes Safety Concerns: Feels Safe At This Time Childhood Exposure to Second-Hand Smoke: No Diet Comment: regular caffeine: Yes (coffee) during the past year weight has: remained stable Dental Care, Regularly: Yes Physical Activity Frequency: 3-4 Times per Week Physical Activity Frequency Comment: walking Seatbelt Use: always Sunscreen Use: No Assistive Devices: Denture - Upper, Denture - Lower and Glasses Physical Exam Constitutional: WD/WN, vitals as above Eyes: PERRL, conjunctivae normal, anicteric sclerae Neck: trachea midline, no thyromegaly Respiratory: normal respiratory effort, lungs clear to auscultation Cardiovascular: RRR, no murmur, no edema Gastrointestinal (Abdomen): soft, mild tenderness at RLQ, no rebound pain, no distend, BS +, Musculoskeletal: no cyanosis or clubbing, extremities motor strength 5/5 Skin: no rashes, warm and dry Neurologic: patellar DTR's 2+ bilat, sensation intact Psychiatric: A+Ox3, euthymic affect Results & Data ([facility]) Vital Signs (Past 12 Hours) Vital Signs Temp Pulse Resp BP Pulse Ox 03/11/21 07:41 36.7 C 80 17 133/83 97 Laboratory Results Abnormal lab results 03/10/21 03/10/21 03/10/21 Range/Units 12:53 12:53 21:00 MPV 10.8 H (7.4-10.4) fL Lymph # (Auto) (1.2-3.4) K/uL [place] # (Auto) 0.66 H (0.11-0.59) K/uL Immature Gran # (Auto) 0.03 H (0.00-0.02) K/uL Potassium 3.4 L (3.5-5.1) mmol/L Creatinine 1.56 H (0.6-1.2) mg/dl Glucose 114 H (70-99) mg/dl Calcium (8.5-10.1) mg/dl Total Bilirubin 1.1 H (0.2-1) mg/dl Globulin 4.1 H (2.5-4.0) gm/dl Lipase 38 L (73-393) U/L Carcinoembryonic Ag 186.3 H (0-2.5) ng/ml 03/11/21 03/11/21 Range/Units 06:59 06:59 MPV (7.4-10.4) fL Lymph # (Auto) 1.10 L (1.2-3.4) K/uL [place] # (Auto) (0.11-0.59) K/uL Immature Gran # (Auto) (0.00-0.02) K/uL Potassium (3.5-5.1) mmol/L Creatinine 1.33 H (0.6-1.2) mg/dl Glucose (70-99) mg/dl Calcium 8.3 L (8.5-10.1) mg/dl Total Bilirubin (0.2-1) mg/dl Globulin (2.5-4.0) gm/dl Lipase (73-393) U/L Carcinoembryonic Ag (0-2.5) ng/ml Diagnostic Findings CT OF THE ABDOMEN AND PELVIS WITH CONTRAST CLINICAL HISTORY: Abdominal pain. suspect bowel obstruction. benign kub COMPARISON STUDY: CT of the abdomen and pelvis March 06, 2021. KUB performed earlier today. TECHNIQUE: Following IV administration of 93 mL of Optiray, axial images of the abdomen and pelvis were obtained from the lung bases to the proximal femurs. Images were reviewed in the axial, sagittal, and coronal planes. IV contrast was administered without complication. Automated exposure control was utilized for the study. A dose lowering technique was utilized adhering to the principles of ALARA. Oral contrast was administered. CT DOSE: 1353.86 mGycm FINDINGS: No pneumatosis, free air or portal venous gas is present. No hepatic lesions are present. There is no biliary ductal dilatation status post cholecystectomy. There is pancreatic glandular atrophy. The spleen, adrenal glands and kidneys are unremarkable. There is no hydronephrosis. Note is again made of numerous enlarged retrocrural, mesenteric and retroperitoneal lymph nodes. Several of these lymph nodes are necrotic. This is similar to prior exam of March 06, 2021. Adjacent infiltration is again noted with trace ascites. Note is again made of wall thickening of the hepatic flexure of the colon and the proximal colon the cecum and ascending colon are moderately distended. Caliber change at the level of the hepatic flexure suspected. Contrast reaches the cecum. There is no evidence for a small bowel obstruction. Major vasculature is patent. There is colonic diverticulosis without evidence for acute diverticulitis. IMPRESSION: 1. No change in moderate distention of the cecum and ascending colon with probable transition point within the hepatic flexure with wall thickening of the hepatic flexure of the colon and the proximal transverse colon. The findings are worrisome for underlying colonic lesion which may result in a partial colonic obstruction. GI consultation for consideration for colonoscopy is recommended. 2. No change in extensive mesenteric, retroperitoneal and retrocrural lymphadenopathy. This is consistent with a neoplastic process and likely reflects yamel spread of malignancy. Lymphoma is within the differential but considered less likely. 3. Trace ascites. Abdominal infiltration, similar to prior exam. (1) Partial bowel obstruction Intestinal obstruction type: unspecified Qualified Code(s): K56.600 - Partial intestinal obstruction, unspecified as to cause
--- NOTE | 2021-03-11 15:19 | Hospitalist Progress Note ---
Date of Service March 11, 2021 Assessment & Plan (1) Intractable abdominal pain: Plan: - thus far, things seem consistent with presumed colon CA with yamel spread. CT shows mass with contrast that reached the cecum. Suspect chronic partial bowel obstructive given this mass - GI and GS on board-- appreciate recommendations - plan is for c.scope tomorrow - GS recommending surgery be done in [place] by colorectal surgeon given the yamel involvement - at this time--> ? need for transfer vs outpatient. Patient with chronic partial obstruction given this mass; however, contrast does reach the colon. I am uncertain if she will be able to be managed at home and be able to tolerate enough oral intake (with liquids alone) to meet her caloric demand (as I do not know how long it my take for this issue to be addressed). - will also need established with oncology (which can ultimately be done as an OP) (2) Hypokalemia: Plan: * Likely due to decreased oral intake and multiple loose bowels * replaced and resolved (3) CRISTI (acute kidney injury): Plan: * Likely related to volume depletion from poor oral intake and persistent loose bowels * improved with IVF (4) Colonic mass: Plan: * See above (5) Hypothyroidism: Plan: * Hold oral meds for now given n.p.o. status (6) Irritable bowel syndrome: (7) Dyslipidemia: Plan: * Diet controlled (8) Benign essential hypertension: Plan: * Hold Norvasc for now as patient not on clear liquids and starting her prep for surgery. BP currently 121/79 (9) Chronic reflux esophagitis: Plan: * Hold oral omeprazole and instead use IV PPI (pantoprazole) Plan: * Heparin for DVT prophylaxis. To be held in the event patient needs to be taken to the OR * Hold aspirin given n.p.o. status and possibility patient may need to be taken to the OR for partial bowel resection * Follow-up labs in the a.m. to trend * Plan of care to be D/W Dr. Bowie. Further orders as warrented Admission and Anticipated Discharge Date Admission Date: March 10, 2021 Subjective Patient seen on daily rounds today. Hospitalized yesterday with intractable abdominal pain due after being found to have a presumed colonic mass [address] scan[address] Prior CT also suggested an obstructing process. Patient was unable to tolerate much if any oral intake and was having only loose/frequent BMs. A repeat CT was obtained showing concern for mass with partial colonic obstruction- contrast; however, does reach the cecum. Findings highly suggestive of neoplastic process with yamel spread. CEA level obtained and elevated at 186. She remains n.p.o. and claims that her pain is overall much improved. Still present but now a 4-5 out of 10 versus a 10/10. No longer having nausea and denies emesis. Seen by both GI and general surgery and plan is for colonoscopy tomorrow. Prep has been ordered. She is not passing gas but is still having frequent/loose BMs. General surgery recommending patient have surgical intervention at [facility] by a colorectal specialist given yamel spread. Review of Systems Constitutional: All systems reviewed and are unremarkable except as noted in HPI and below + Abdominal pain/diarrhea. Denies fevers, chills, headache, nasal congestion, sore throat, cough, chest pain, shortness of breath, nausea, vomiting, dysuria, hematuria, frequency, skin lesions or rashes. Physical Exam Physical Exam: General: Resting comfortably in her hospital bed. NAD. Neck: No JVD. Negative hepatojugular reflex Cardiac: RRR without M/G/R Lungs: CTA without W/R/R Abdomen: Abdomen is nondistended. Normal active BS X4. Abdomen soft. Tender today in the right lower quadrant. Nontender in the left lower quadrant as seen on the day prior. Extremities: No peripheral clubbing cyanosis or edema Neuro: A&O X4 cranial nerves II through XII are grossly intact no focal neuro deficits Skin: No obvious skin lesions or rashes Results & Data Results & Data ([facility]) Vital Signs (Past 12 Hours) Vital Signs Temp Pulse Resp BP Pulse Ox 03/11/21 15:01 36.8 C 78 17 121/79 96 03/11/21 07:41 36.7 C 80 17 133/83 97 Laboratory Results 03/11/21 06:59 03/11/21 06:59 PG Care Time/CCT Total # of Minutes Spent Total Time Spent with Patient: Total time spent is greater than 50% in coordination of care (as documented) at patient's floor/unit and/or counseling patient: [place] [address] Subseq Hosp Care Lvl 2 Patient Type Established History Expanded Problem Focused Exam Expanded Problem Focused Medical Decision Making Moderate Complexity Diagnoses Intractable abdominal pain R10.9 Hypokalemia E87.6 CRISTI (acute kidney injury) N17.9 Colonic mass K63.89 Hypothyroidism E03.9 Irritable bowel syndrome K58.0 Irritable bowel syndrome type: with diarrhea Dyslipidemia E78.5 Benign essential hypertension I10 Chronic reflux esophagitis K21.0 (1) Irritable bowel syndrome Irritable bowel syndrome type: with diarrhea Qualified Code(s): K58.0 - Irritable bowel syndrome with diarrhea
[2021-03-11] MEDS: LAVAGE SOLUTION 4000ML PO SCH (17:57)
--- NOTE | 2021-03-11 19:02 | Surgery Consultation ---
Date of Consultation March 11, 2021 Assessment & Plan (1) Colonic mass: Chart/labs/radiology reviewed. Discussed with Dr. Velarde. likely colonic malignancy. no evidence of distant mets...enlarged abdominal lymph nodes metastatic vs reactive. near obstruction and almost for sure the etiology of her pain. we discussed the risks ( bleeding/infection/injury to another organ/anastomotic stricture or leak/ dvt/pe/mi/cva etc..... needs resected regardless because of impending obstruction. because of location, appearance/location of lymph nodes, and prior surgical history I am recommending an open approach. questions answered. pt agreeable. will tentatively plan for Tuesday so that she does not need to re-do colon prep. plan for colonoscopy tomorrow by Dr. Velarde. may have clears after colonsocopy and NPO after midnight tomorrow. (2) Partial bowel obstruction: (3) Abnormal CT scan, colon: (4) Morbid obesity: (5) Intractable abdominal pain: History of Present Illness Attending Physician: Beto Bowie DO History of Present Illness 60 year old with a several week history of upper abdominal pain, unexplained. PCP ordered a CT scan as out-pt which revealed a likely right sided colon mass. was to have an out-pt colonoscopy but was admitted for abdominal pain. scheduled for colonoscopy tomorrow. 2nd surgical opinion requested. Allergies Allergy/AdvReac Type Severity Reaction Status Date / Time house dust mite Allergy Mild sneezy, Verified 03/11/21 10:42 watery eyes oak Allergy Mild sneezy, Verified 03/10/21 13:45 watery eyes No Known Drug Allergies AdvReac Unknown Verified 03/11/21 10:42 Home Medications Medication Instructions Recorded Confirmed Type albuterol sulfate 90 mcg/actuation 2 puffs INHALATION Q4H PRN #3 gm 03/15/19 03/10/21 History aerosol inhaler albuterol sulfate 2.5 mg INHALATION Q4H PRN #1 box 04/27/19 03/10/21 Rx cholecalciferol (vitamin D3) 50 2,000 units PO QAM #90 cap 06/13/19 03/10/21 History mcg (2,000 unit) capsule magnesium oxide 500 mg capsule 500 mg PO BID cap 06/13/19 03/10/21 History ipratropium bromide 0.02 % 0.5 mg INHALATION Q4H PRN #360 ml 10/09/20 03/10/21 Rx solution for inhalation diphenoxylate-atropine 2.5 1 tab PO QID PRN #360 tab 01/19/21 03/10/21 Rx mg-0.025 mg tablet ipratropium bromide 21 mcg (0.03 2 spray INTRANASAL BID #90 ml 01/19/21 03/10/21 Rx %) nasal spray amlodipine 5 mg tablet 5 mg PO QAM 03/10/21 03/10/21 History aspirin 81 mg tablet,delayed 81 mg PO DAILY 03/10/21 03/10/21 History release fluticasone propionate 50 2 sprays INTRANASAL BID 03/10/21 03/10/21 History mcg/actuation nasal spray,suspension levothyroxine 75 mcg tablet 75 mcg PO QAM 03/10/21 03/10/21 History losartan 100 mg tablet 100 mg PO QAM 03/10/21 03/10/21 History montelukast 10 mg tablet 10 mg PO QPM 03/10/21 03/10/21 History multivitamin 1 tab PO QAM 03/10/21 03/10/21 History omeprazole 20 mg capsule,delayed 20 mg PO QAM 03/10/21 03/10/21 History release sodium sul 1.479 gram-potas ch See Rx Instructions PO .COMPLEX 03/10/21 03/10/21 Rx 0.188 gram-magnes sul 0.225 gram #24 tab tablet (Sutab) Patient History Medical History Allergic rhinitis Asthma inhalers daily/prn and nebulizer prn Benign essential hypertension Chronic reflux esophagitis Chronic sinusitis Diverticulosis Dyslipidemia Elevated IgE level History of kidney stones History of pancreatitis "quite a few years ago" Hypothyroidism Irritable bowel syndrome Morbid obesity with BMI of 40.0-44.9, adult Osteoarthrosis Surgical History H/O: hysterectomy Total abdominal with removal of both ovaries History of ankle surgery left achilles tendon--hardware in place History of section x2 History of colonoscopy History of tooth extraction all teeth S/P appendectomy S/P cholecystectomy (01/2013) S/P sinus surgery January 2013 Family History Mother , age 72 Breast cancer, Onset Age: 60 Grandfather (Paternal) Diabetes Myocardial infarction Father Stroke Other No family history of adverse response to anesthesia Denies family history of Ovarian cancer Prostate cancer Lung cancer Colorectal cancer Social History Smoking Status: Former smoker packs per day: 0.25; Years Smoked: 6; Number of Years Since Quit: 33; Second Hand Exposure: No; Do You Dip or Chew Tobacco: No; Tobacco Cessation Education Requested by Patient: No Hx Alcohol Use: No Hx Substance Use: No Preferred Language: Belarusian Communication Ability: Effective Visual Impairment: No Limitations Hearing Ability: Normal Network Systems Consultant Required: No Beliefs That Will Affect Care: None marital status: Current Living Situation: Spouse current occupational status: employed 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 mild nausea at times. Physical Exam Constitutional: WD/WN, vitals as above no acute distress and not ill appearing Eyes: PERRL, conjunctivae normal, anicteric sclerae EOM intact bilaterally ENMT: external ear and nose normal, oropharynx normal Ears: no hearing impairment Neck: trachea midline, no thyromegaly Respiratory: normal respiratory effort; no respiratory distress and does not use accessory muscles Cardiovascular: Rate/Rhythm: regular rate and regular rhythm Gastrointestinal (Abdomen): soft. obese. mild RUQ ttp. no palpable masses. no g/r/r Skin: no rashes, warm and dry Psychiatric: Orientation: alert, oriented x 3 and cooperative Results & Data ([facility]) Vital Signs (Past 12 Hours) Vital Signs Temp Pulse Resp BP Pulse Ox 03/11/21 15:01 36.8 C 78 17 121/79 96 03/11/21 07:41 36.7 C 80 17 133/83 97 PG Care Time/CCT Total # of Minutes Spent Total Time Spent with Patient: Total time spent is greater than 50% in coordination of care (as documented) at patient's floor/unit and/or counseling patient: Coding Level of Care Code 27201 Inpt Consult Level 5 Diagnoses Colonic mass K63.89 Partial bowel obstruction K56.600 Intestinal obstruction type: unspecified Abnormal CT scan, colon R93.3 Morbid obesity E66.01 Intractable abdominal pain R10.9 (1) Partial bowel obstruction Intestinal obstruction type: unspecified Qualified Code(s): K56.600 - Partial intestinal obstruction, unspecified as to cause
[2021-03-11] MEDS ORDERED: amLODIPine BESYLATE 5 MG TAB PO ONE (22:00)
[2021-03-11] MEDS ORDERED: LOSARTAN POTASSIUM 50 MG TAB PO ONE (22:00)
[2021-03-11] MEDS ORDERED: LEVOTHYROXINE SODIUM 75 MCG TABLET PO ONE (22:00)
[2021-03-11] MEDS ORDERED: MONTELUKAST SODIUM 10 MG TABLET PO ONE (22:00)
[2021-03-12] MEDS: MoRPHine SULFATE 2 MG/ML CARP IV PRN ×3 (02:13→07:37)
[2021-03-12] MEDS: LAVAGE SOLUTION 4000ML PO SCH (04:17)
[2021-03-12 07:49] LABS: Basophils # (auto) 0.01 K/uL (0-0.2); Basophils % (auto) 0.2 %; Eosinophils # (auto) 0.13 K/uL (0-0.5); Hematocrit (blood only) 38.4 % (37-47); Hemoglobin 12.7 g/dL (12.0-16.0); Immature Granulocytes # (auto) 0.03 K/uL (0.00-0.02); Immature Granulocytes % (auto) 0.7 %; Lymphocytes # (auto) 0.88 K/uL (1.2-3.4); Lymphocytes % (auto) 20.3 %; Mean Corpuscular Hemoglobin 28.7 pg (25-34); Mean Corpuscular Hgb Conc 33.1 g/dL (32-36); Mean Corpuscular Volume 86.7 fL (80-100); Mean Platelet Volume 9.9 fL (7.4-10.4); Monocytes % (auto) 11.5 %; Neutrophils # (auto) 2.79 K/uL (1.4-6.5); Neutrophils % (auto) 64.3 %; Platelet Count 163 K/uL (130-400); RDW Coefficient of Variation 13.1 % (11.5-14.5); RDW Standard Deviation 42.2 fL (36.4-46.3); Red Blood Count 4.43 M/uL (4.2-5.4); White Blood Count 4.34 K/uL (4.8-10.8)
[2021-03-12] MEDS: PANTOprazole 40 MG in SYRINGE 0 ML IV SCH ×2 (08:16→20:12)
[2021-03-12] MEDS: HEPARIN SOD 5,000 UNIT/0.5 ML VIAL SQ SCH ×2 (08:16→20:11)
[2021-03-12 08:29] LABS: Calcium 8.4 mg/dl (8.5-10.1); Creatinine Clr Calc Pharmacy 79.9 ml/min; Est GFR (African American) 64.2 ml/min; Est GFR (Non-African American) 55.4 ml/min; Potassium 3.2 mmol/L (3.5-5.1)
--- NOTE | 2021-03-12 09:48 | Surgery Progress Note ---
Date of Service March 12, 2021 Assessment & Plan (1) Colonic mass: Plan: re-discussed the plan for tomorrow assuming nothing unexpected found on colonoscopy today. questions answered. pt and her agreeable. will plan open right colectomy tomorrow. consent signed. Admission and Anticipated Discharge Date Admission Date: March 10, 2021 Subjective pt seen. "rough night" because of prep. no nausea/vomitting/starr prep orally. no new complaints. Physical Exam Constitutional: WD/WN, vitals as above no acute distress and not ill appearing Eyes: PERRL, conjunctivae normal, anicteric sclerae EOM intact bilaterally ENMT: external ear and nose normal, oropharynx normal Ears: no hearing impairment Neck: trachea midline, no thyromegaly Respiratory: normal respiratory effort; no respiratory distress and does not use accessory muscles Cardiovascular: Rate/Rhythm: regular rate and regular rhythm Gastrointestinal (Abdomen): normal bowel sounds, soft, nontender, no hepatosplenomegaly Skin: no rashes, warm and dry Psychiatric: Orientation: alert, oriented x 3 and cooperative Results & Data ([facility]) Vital Signs (Past 12 Hours) Vital Signs Temp Pulse Resp BP BP Pulse Ox 03/12/21 07:48 36.9 C 79 20 115/68 94 03/11/21 23:20 36.7 C 72 20 120/67 94 03/11/21 22:33 37.1 C 73 16 124/82 92 PG Care Time/CCT Total # of Minutes Spent Total Time Spent with Patient: Total time spent is greater than 50% in coordination of care (as documented) at patient's floor/unit and/or counseling patient: Coding Level of Care Code 17217 Inpt Consult Level 4 Diagnoses Colonic mass K63.89
--- NOTE | 2021-03-12 10:02 | Hospitalist Progress Note ---
Date of Service March 12, 2021 Assessment & Plan (1) Intractable abdominal pain: Plan: - presumed colon CA with localized yamel spread - GI and GS on board-- appreciate recommendations - plan is for c.scope today followed by right hemicolectomy tomorrow. given patient is already prepped for her c.scope and in doing so, this has caused increased pain (likely d/t near occlusion/obstruction from mass)--> best to have procedure done sophia - will also need established with oncology (which can ultimately be done as an OP) - Desitin for bottom d/t discomfort from prep (2) Hypokalemia: Plan: * Likely due to decreased oral intake and multiple loose bowels * continue replacement (3) CRISTI (acute kidney injury): Plan: * Likely related to volume depletion from poor oral intake and persistent loose bowels * improved with IVF (4) Colonic mass: Plan: * See above (5) Hypothyroidism: Plan: * will resume post-op once oral intake initiated by general surgery (6) Irritable bowel syndrome: (7) Dyslipidemia: Plan: * Diet controlled (8) Benign essential hypertension: Plan: * Hold Norvasc for now (see above). BP controlled without (126/84) (9) Chronic reflux esophagitis: Plan: * Hold oral omeprazole and instead use IV PPI (pantoprazole) Plan: * Heparin for DVT prophylaxis. To be held in the event patient needs to be taken to the OR * Hold aspirin given plan for surgical intervention * Follow-up labs in the a.m. to trend * Plan of care to be D/W Dr. Bowie. Further orders as warranted Admission and Anticipated Discharge Date Admission Date: March 10, 2021 Subjective Patient seen on daily rounds today. She has since been tolerating her bowel prep but reports increased abdominal discomfort/pain. Bowels are clear at this point. Plan is for colonoscopy today by GI. Initially when seen by general surgery yesterday, they had suggested patient be transferred to [place] under the care of a colorectal surgeon; however, seen by Dr. Campbell at this morning who is planning on hemicolectomy to be done tomorrow as patient's already completed her prep. Patient is complaining of some burning/pain at her rectum from aggressive BMs. Otherwise, has not had any fevers, chills, chest pain, shortness of breath, nausea, vomiting. Review of Systems Review of Systems: All systems reviewed and are unremarkable except as noted in HPI and below Denies fevers, chills, headache, nasal congestion, sore throat, cough, chest pain, shortness of breath, abdominal pain, nausea, vomiting, dysuria, hematuria, frequency, skin lesions or rashes. Physical Exam Physical Exam: General: Resting comfortably in her hospital bed. NAD. Neck: No JVD. Negative hepatojugular reflex Cardiac: RRR without M/G/R Lungs: CTA without W/R/R Abdomen: Abdomen is nondistended. Normal active BS X4. Abdomen soft. Tender today in the right lower quadrant. Nontender in the left lower quadrant as seen on the day prior. Extremities: No peripheral clubbing cyanosis or edema Neuro: A&O X4 cranial nerves II through XII are grossly intact no focal neuro deficits Skin: No obvious skin lesions or rashes Results & Data Results & Data ([facility]) Vital Signs (Past 12 Hours) Vital Signs Temp Pulse Resp BP BP Pulse Ox 03/12/21 07:48 36.9 C 79 20 115/68 94 03/11/21 23:20 36.7 C 72 20 120/67 94 03/11/21 22:33 37.1 C 73 16 124/82 92 Laboratory Results 03/12/21 07:39 03/12/21 07:39 PG Care Time/CCT Total # of Minutes Spent Total Time Spent with Patient: Total time spent is greater than 50% in coordination of care (as documented) at patient's floor/unit and/or counseling patient: [place]oding [place] [address] Subseq Hosp Care Lvl 2 Patient Type Established History Expanded Problem Focused Exam Expanded Problem Focused Medical Decision Making Low Complexity Diagnoses Intractable abdominal pain R10.9 Hypokalemia E87.6 CRISTI (acute kidney injury) N17.9 Colonic mass K63.89 Hypothyroidism E03.9 Irritable bowel syndrome K58.0 Irritable bowel syndrome type: with diarrhea Dyslipidemia E78.5 Benign essential hypertension I10 Chronic reflux esophagitis K21.0 (1) Irritable bowel syndrome Irritable bowel syndrome type: with diarrhea Qualified Code(s): K58.0 - Irritable bowel syndrome with diarrhea
--- NOTE | 2021-03-12 10:35 | History & Physical Bridge Note ---
Date of Service March 12, 2021 History & Physical Bridge Note I have examined the patient, reviewed the History & Physical and in the interval since the performance of the History & Physical I have noted the following changes of clinical significance: no changes noted. Patient has completed her bowel preparation. She has been NPO since prior to midnight otherwise. She denies any new concerns at present. Surgery is planned with Dr. Campbell tomorrow. Proceed with colonoscopy today. Supervising Physician Co-Signing Physician Notes Agree with ANSELMO Moore as above Abd: Soft, NT, ND, +BS Continue current therapy and supportive care Proceed with colonoscopy now.
[2021-03-12] MEDS: D5W AND 1/2NSS 1,000 ML IV SCH (10:45)
[2021-03-12] MEDS ORDERED: MENTHOL-ZINC OXIDE 360 APPLN/120 GM TUBE EXT PRN (11:45)
--- NOTE | 2021-03-12 12:41 | XRay Report ---
XR chest 1V portable HISTORY: 60 years-old Female pre-op preoperative exam. No acute chest complaints COMPARISON: CT abdomen and pelvis 03/10/2021, chest CT 10/31/2017 TECHNIQUE: Portable AP view of the chest FINDINGS: Cardiomediastinal and hilar silhouettes are within normal limits. No pneumothorax, pleural effusion, airspace consolidation or overt pulmonary edema. Mild right hemidiaphragmatic elevation. The bones ap pear grossly intact. IMPRESSION: No acute process. ACT 112: Negative or not required by law. The above report was generated using voice recognition software. It may contain grammatical, syntax o r spelling errors. Electronically signed by: Brendon Ventura M.D. 03/12/2021 12:40 PM
[2021-03-12] MEDS ORDERED: PROPOFOL IV EMULSION 10 MG/ML 20 ML VIAL IV ONE ×2 (13:11→13:14)
[2021-03-12] MEDS ORDERED: LIDOCAINE 2% 2 ML VIAL/AMP(20MG/ML) INFIL ONE (13:11)
[2021-03-12] MEDS ORDERED: ENDOSCOPIC MARKER 5 ML SYR TOP ONE (13:14)
--- NOTE | 2021-03-12 13:35 | GI REPORT ---
Patient Name: Verito Norton Procedure Date: 03/12/2021 12:32 PM Date of : 1960 Admit Type: Inpatient Age: 60 Gender: Female Attending MD: Pipo Velarde DO Procedure: Colonoscopy Providers: Pipo Velarde DO Referring MD: Traci Patton Indications: Abnormal CT of the GI tract Medicines: Monitored Anesthesia Care Complications: No immediate complications. Estimated Blood Loss: Estimated blood loss: none. Procedure: Pre-Anesthesia Assessment: - Prior to the procedure, a History and Physical was performed, and patient medications and allergies were reviewed. The patient's tolerance of previous anesthesia was also reviewed. The risks and benefits of the procedure and the sedation options and risks were discussed with the patient. All questions were answered, and informed consent was obtained. Prior Anticoagulants: The patient has taken heparin, last dose was 1 day prior to procedure. ASA Grade Assessment: III - A patient with severe systemic disease. After reviewing the risks and benefits, the patient was deemed in satisfactory condition to undergo the procedure. After I obtained informed consent, the scope was passed under direct vision. Throughout the procedure, the patient's blood pressure, pulse, and oxygen saturations were monitored continuously. The Scope was introduced through the anus with the intention of advancing to the ileum. The scope was advanced to the ascending colon before the procedure was aborted. Medications were given. The colonoscopy was performed without difficulty. The patient tolerated the procedure well. The quality of the bowel preparation was good. The rectum was photographed. Findings: The perianal and digital rectal examinations were normal. An infiltrative partially obstructing large mass was found in the ascending colon. The mass was circumferential, and did not allow passage of the colonoscope. In addition, its diameter measured thirty mm. No bleeding was present. Biopsies were taken with a cold forceps for histology. Area was tattooed with an injection of 4 mL of Tiffany ink approximately 3 cm from the distal margin of the mass. Multiple small-mouthed diverticula were found in the sigmoid colon. Non-bleeding internal hemorrhoids were found during retroflexion. The hemorrhoids were small. Impression: - Malignant partially obstructing tumor in the ascending colon. Biopsied. Tattooed. - Diverticulosis in the sigmoid colon. - Non-bleeding internal hemorrhoids. Recommendation: - [facility] to [facility] care. - Clear liquid diet today. - Strict NPO after midnight - OR tomorrow with Dr. Campbell - Continue present medications. - Repeat colonoscopy for surveillance based on pathology results. Pipo Velarde, DO 03/12/2021 1:35:23 PM This report has been signed electronically. Note Initiated On: 03/12/2021 12:32 PM Number of Addenda: 0 I attest to the content of the Intraoperative Record and orders documented therein, exceptions below {[id number]}
--- NOTE | 2021-03-12 13:55 | Anesthesiology Progress Note ---
Date of Service March 12, 2021 Anesthesia Post Procedure Vital Signs Vital Signs: Temp Pulse Resp BP BP Pulse Ox 03/12/21 13:41 65 18 154/89 H 95 03/12/21 13:25 64 18 122/76 94 03/12/21 12:00 37.6 C H 79 18 148/88 H 94 03/12/21 07:48 36.9 C 79 20 115/68 94 03/11/21 23:20 36.7 C 72 20 120/67 94 03/11/21 22:33 37.1 C 73 16 124/82 92 03/11/21 15:01 36.8 C 78 17 121/79 96 Pain Intensity Abdomen: Pain Intensity: 10 Transfer of Care Handoff Completed per policy Notes Mental Status: alert / awake / arousable and participated in evaluation Patient Amnestic to Procedure: Yes Nausea / Vomiting: adequately controlled Pain: adequately controlled Airway Patency, RR, SpO2: stable & adequate BP & HR: stable & adequate Hydration State: stable & adequate Anesthetic Complications: no major complications apparent and Pt Satisfied with anesthetic care
[2021-03-12] MEDS: POTASSIUM CHLORIDE / WTR 10 MEQ/100 ML PLCT IV SCH ×3 (14:23→16:44)
--- NOTE | 2021-03-12 18:13 | Anesthesiology Consultation ---
Date of Service March 12, 2021 Assessment & Plan (1) Encounter for pre-operative examination: Chart Review Chart Review: entry level installation technician initiated (EKG was ordered) History Surgery Operation Date: 03/12/21 12:55 Proposed Procedures p Colonoscopy Dr. Velarde - Pipo Velarde, Operation Date: 03/13/21 09:55 Proposed Procedures p Open Extended Right Hemicolectomy - Yayo Campbell, Height/Weight Height: 5 ft 8 in Weight: 135.6 kg Allergies Allergy/AdvReac Type Severity Reaction Status Date / Time house dust mite Allergy Mild sneezy, Verified 03/12/21 12:07 watery eyes oak Allergy Mild sneezy, Verified 03/12/21 12:07 watery eyes No Known Drug Allergies AdvReac Unknown Verified 03/12/21 12:07 Medications Home Medications Medication Instructions Recorded Confirmed Last Taken albuterol sulfate 90 mcg/actuation 2 puffs INHALATION Q4H PRN #3 gm 03/15/19 03/10/21 Unknown aerosol inhaler albuterol sulfate 2.5 mg INHALATION Q4H PRN #1 box 04/27/19 03/10/21 Unknown cholecalciferol (vitamin D3) 50 2,000 units PO QAM #90 cap 06/13/19 03/10/21 03/10/21 mcg (2,000 unit) capsule magnesium oxide 500 mg capsule 500 mg PO BID cap 06/13/19 03/10/21 03/10/21 ipratropium bromide 0.02 % 0.5 mg INHALATION Q4H PRN #360 ml 10/09/20 03/10/21 Unknown solution for inhalation diphenoxylate-atropine 2.5 1 tab PO QID PRN #360 tab 01/19/21 03/10/21 03/08/21 mg-0.025 mg tablet ipratropium bromide 21 mcg (0.03 2 spray INTRANASAL BID #90 ml 01/19/21 03/10/21 03/10/21 %) nasal spray amlodipine 5 mg tablet 5 mg PO QAM 03/10/21 03/10/21 03/10/21 aspirin 81 mg tablet,delayed 81 mg PO DAILY 03/10/21 03/10/21 03/10/21 release fluticasone propionate 50 2 sprays INTRANASAL BID 03/10/21 03/10/2121 mcg/actuation nasal spray,suspension levothyroxine 75 mcg tablet 75 mcg PO QAM 03/10/21 03/10/21 03/10/21 losartan 100 mg tablet 100 mg PO QAM 03/10/21 03/10/21 03/10/21 montelukast 10 mg tablet 10 mg PO QPM 03/10/21 03/10/21 03/09/21 multivitamin 1 tab PO QAM 03/10/21 03/10/21 03/10/21 omeprazole 20 mg capsule,delayed 20 mg PO QAM 03/10/21 03/10/21 03/10/21 release sodium sul 1.479 gram-potas ch See Rx Instructions PO .COMPLEX 03/10/21 03/10/21 Unknown 0.188 gram-magnes sul 0.225 gram #24 tab tablet (Sutab) Active Medications Generic Name Dose Route Start Last Admin Trade Name Freq PRN Reason Stop Dose Admin Heparin Sodium (Porcine) 5,000 units 03/10/21 20:46 03/12/21 08:16 Heparin Sod 5,000 Unit/0.5 Ml Vial SQ 04/09/21 20:45 Not Given Q12H KATHYA Dextrose/Sodium Chloride 1,000 mls @ 80 mls/hr 03/10/21 20:46 03/12/21 10:45 D5w And 1/2nss IV 04/09/21 20:45 80 mls/hr .[id number] KATHYA Administration Pantoprazole Sodium 40 mg/ 10 mls @ 5 mls/min 03/10/21 21:00 03/12/21 08:16 Syringe IV 04/09/21 20:59 5 mls/min BID KATHYA Administration Morphine Sulfate 4 mg 03/10/21 13:03 03/10/21 17:45 Morphine Sulfate 4 Mg/Ml 1 Ml Carp\\Vial IV 03/24/21 13:02 4 mg Q15M PRN Administration Pain Morphine Sulfate 2 mg 03/10/21 20:46 03/12/21 07:37 Morphine Sulfate 2 Mg/Ml Carp IV 03/24/21 20:45 2 mg Q2H PRN Administration Pain Ondansetron HCl 4 mg 03/10/21 15:51 03/10/21 18:57 Ondansetron Inj 2 Mg/Ml 2 Ml Vial IV 04/09/21 15:50 4 mg Q6H PRN Administration nausea NPO Date Last Intake of Fluids: 03/11/21 Time Last Intake of Fluids: 17:00 Date Last Intake of Solids: 03/09/21 Time Last Intake of Solids: 11:59 Past Medical History Medical History Allergic rhinitis Asthma inhalers daily/prn and nebulizer prn Benign essential hypertension Chronic reflux esophagitis Chronic sinusitis Diverticulosis Dyslipidemia Elevated IgE level History of kidney stones History of pancreatitis "quite a few years ago" Hypothyroidism Irritable bowel syndrome Morbid obesity with BMI of 40.0-44.9, adult Osteoarthrosis Past Family History Family History Mother , age 72 Breast cancer, Onset Age: 60 Grandfather (Paternal) Diabetes Myocardial infarction Father Stroke Other No family history of adverse response to anesthesia Denies family history of Ovarian cancer Prostate cancer Lung cancer Colorectal cancer Past Surgical History Surgical History H/O: hysterectomy Total abdominal with removal of both ovaries History of ankle surgery left achilles tendon--hardware in place History of section x2 History of colonoscopy History of tooth extraction all teeth S/P appendectomy S/P cholecystectomy (01/2013) S/P sinus surgery January 2013 Social History Smoking Status: Former smoker tobacco type: cigarettes Do You Dip or Chew Tobacco: No Hx Alcohol Use: No Hx Substance Use: No substance use type: does not use Physical Exam Vital Signs Last Vital Signs Temp 99.0 F 03/12/21 16:48 Pulse 96 H 03/12/21 16:48 Resp 18 03/12/21 16:48 BP 151/85 H 03/12/21 16:48 Pulse Ox 91 03/12/21 16:48 Testing Laboratory Results 03/12/21 07:39 03/12/21 07:39 Urine Color Yellow 03/11/21 01:01 Urine Appearance Clear (Clear) 03/11/21 01:01 Urine pH 6.5 (4.5-7.5) 03/11/21 01:01 Ur Specific Warrior 1.027 (1.000-1.030) 03/11/21 01:01 Urine Protein Negative (Negative) 03/11/21 01:01 Urine Glucose (UA) Negative (Negative) 03/11/21 01:01 Urine Ketones Negative (Negative) 03/11/21 01:01 Urine Nitrite Negative (Negative) 03/11/21 01:01 Ur Leukocyte Esterase Negative (Negative) 03/11/21 01:01 Blood Type O Positive 03/12/21 16:20 Antibody Screen NEGATIVE 03/12/21 16:20 Laboratory Tests 03/10/21 14:30 SARS-CoV-2 (PCR) NEGATIVE Chest X-Ray Date: 03/12/21 Findings: + NAD
[2021-03-13] MEDS: D5W AND 1/2NSS 1,000 ML IV SCH ×2 (02:46→14:55)
[2021-03-13] MEDS: MoRPHine SULFATE 2 MG/ML CARP IV PRN ×2 (02:49→07:40)
[2021-03-13 06:38] LABS: Hematocrit (blood only) 37.3 % (37-47); Hemoglobin 12.4 g/dL (12.0-16.0); Mean Corpuscular Hemoglobin 28.9 pg (25-34); Mean Corpuscular Hgb Conc 33.2 g/dL (32-36); Mean Corpuscular Volume 86.9 fL (80-100); Mean Platelet Volume 10.4 fL (7.4-10.4); Platelet Count 178 K/uL (130-400); RDW Coefficient of Variation 13.1 % (11.5-14.5); RDW Standard Deviation 41.7 fL (36.4-46.3); Red Blood Count 4.29 M/uL (4.2-5.4); White Blood Count 4.65 K/uL (4.8-10.8)
[2021-03-13] MEDS: HEPARIN SOD 5,000 UNIT/0.5 ML VIAL SQ SCH (07:18)
[2021-03-13] MEDS: PANTOprazole 40 MG in SYRINGE 0 ML IV SCH ×2 (07:41→20:16)
[2021-03-13] MEDS ORDERED: NEOSTIGMINE METHYLSULFATE 1 MG/ML 10ML VIAL ONE (10:13)
[2021-03-13] MEDS ORDERED: ONDANSETRON INJ 2 MG/ML 2 ML VIAL ONE ×2 (10:13→12:35)
[2021-03-13] MEDS ORDERED: DEXAMETHASONE SOD INJ 4 MG/ML VIAL ONE (10:13)
[2021-03-13] MEDS ORDERED: LIDOCAINE 2% 2 ML VIAL/AMP(20MG/ML) INFIL ONE (10:13)
[2021-03-13] MEDS ORDERED: fentaNYL citrate 100 MCG/2 ML VIAL ONE ×2 (10:13→13:46)
[2021-03-13] MEDS ORDERED: PROPOFOL IV EMULSION 10 MG/ML 20 ML VIAL IV ONE (10:13)
[2021-03-13] MEDS ORDERED: MIDAZOLAM HCL 1 MG/ML 2ML VIAL ONE (10:13)
[2021-03-13] MEDS ORDERED: GLYCOPYRROLATE 0.2 MG/ML VIAL ONE ×2 (10:13→12:35)
--- NOTE | 2021-03-13 10:45 | History & Physical Bridge Note ---
Date of Service March 13, 2021 History & Physical Bridge Note I have examined the patient, reviewed the History & Physical and in the interval since the performance of the History & Physical I have noted the following changes of clinical significance: colonoscopy report/pics reviewed. pt with no additional questions. will proceed today with extended right hemicolectomy for presumed colon ca on near obstructing lesion in right colon.
[2021-03-13] MEDS ORDERED: metroNIDAZOLE 500 MG/100 ML BAG IV STA (10:59)
[2021-03-13] MEDS ORDERED: CIPROFLOXACIN / D5W 400 MG/200 ML BAG IV STA (11:06)
[2021-03-13] MEDS ORDERED: CIPROFLOXACIN 400MG / 200ML D5W IV ONE (11:08)
[2021-03-13] MEDS ORDERED: ATROPINE SULFATE 0.1 MG/ML 10ML SYR IV PRN (11:14)
[2021-03-13] MEDS ORDERED: HYDROmorphone INJ 2 MG/ML SYR/VIAL IV PRN (11:14)
[2021-03-13] MEDS ORDERED: ONDANSETRON INJ 2 MG/ML 2 ML VIAL IV PRN (11:14)
[2021-03-13] MEDS ORDERED: ePHEDrine sulfate 50 MG/ML AMP IV PRN (11:14)
[2021-03-13] MEDS ORDERED: fentaNYL citrate 100 MCG/2 ML VIAL IV PRN (11:14)
[2021-03-13] MEDS: POTASSIUM CHLORIDE / WTR 10 MEQ/100 ML PLCT IV SCH ×3 (11:45→13:59)
[2021-03-13] MEDS ORDERED: ROCURONIUM BROMIDE 10 MG/ML 5 ML VIAL IV ONE (12:35)
[2021-03-13] MEDS ORDERED: LARYING-O-JET KIT (LTA) ONE (12:35)
[2021-03-13] MEDS ORDERED: ePHEDrine sulfate 50 MG/ML SYR ONE (12:35)
--- NOTE | 2021-03-13 13:46 | Operative Report ---
PG Post Operative Report Pre & Post Diagnosis Operation Date: 03/12/21 12:55 Pre-Op Diagnosis: INTRACTABLE ABD PAIN Post-Op Diagnosis: ASCENDING COLON MASS, DIVERTICULOSIS, HEMORRHOIDS Operation Date: 03/13/21 09:55 Pre-Op Diagnosis: Colon mass Post-Op Diagnosis: Colon Mass; intra-abdominal spread to mesentery I identified the patient and participated in the time-out.: Yes Procedure Operation Date: 03/12/21 12:55 Actual Procedures p Colonoscopy Biopsy Cytology - Pipo Paniagua Syd, DO Operation Date: 03/13/21 09:55 Actual Procedures p Open Extended Right Hemicolectomy(Right) - Yayo Campbell DO Surgeon Yayo Campbell DO Port Engineer bridget Trevizo Estimated Blood Loss 25 Findings Consistent with Post-Op Diagnosis Specimens terminal ileum, right colon, portion of transverse colon. Description of Procedure After informed consent was obtained the patient was taken the operating room and placed in supine position. After successful intubation and orogastric tube and Linder catheter were placed. The abdomen was sterilely prepped and draped in usual fashion. Midline incision from just below the subxiphoid process was made and carried down around the umbilicus. This was carried down through soft tissue using cautery. The anterior rectus fascia was opened using cautery. Peritoneum was elevated with hemostats and incised under direct vision using a Metzenbaum scissor. Incision was opened to both poles using cautery. Once in the abdomen we were readily able to identify the tattoo gege placed yesterday. Also the mass was readily palpable. Unfortunately there was already metastatic spread to the mesentery of the colon as well as onto mesentery of the small bowel and potentially down to the duodenum. The majority of the right colon mesentery was replaced with cancerous tissue. There were pathologically enlarged lymph nodes as well. There was no evidence of metastatic disease on the liver. The lesion was near obstructing. We began by identifying a spot distal to the tattoo on the distal side of the transverse colon. We were able to identify a large artery and transected the transverse colon just proximal to this vessel. There was good blood flow to this portion of the colon. This was performed using a RADHA purple cartridge stapler. Next we transected the terminal ileum several centimeters proximal to the ileocecal valve. We did this using a RADHA brown cartridge 60 mm stapler. Next I mobilized the cecum and right colon along the white line of Toldt using blunt finger fractionation as well as small amounts of cautery. We carried this up and around the hepatic flexure. We also detached the greater omentum from the transverse colon using a LigaSure device. Once we had the terminal ileum cecum right colon and transverse colon fully mobilized we then took down the mesentery primarily using the LigaSure device. The right colic vessels were divided using a RADHA black cartridge stapler because they were so thick and coated with metastatic disease. We were unable to get to the base of the mesentery as this was almost completely replaced by metastatic disease and far too risky for bleeding. Eventually we were able to resect the right colon and send it to pathology. There was some additional grossly positive mesenteric tissue which we excised using a clamp cut and tie. This was sent along with the specimen. After this we thoroughly irrigated the entire upper abdomen. We performed a [id number] small bowel to transverse colon anastomosis using a RADHA brown cartridge linear stapler. The common enterotomy was closed using 3-0 Monocryl in a running fashion for serosal/mucosal layers. This was then oversewn with 3-0 silk in Lembert fashion. The mesenteric defect was closed using 2-0 Vicryl in a running fashion. 3-0 silk was used to place a crotch stitch. Final irrigation was performed. There was adequate hemostasis. A 10 flat Errol-Bolanos drain was brought in through a separate stab incision and placed along the right paracolic gutter up to the hepatic flexure. The fascia was then closed using oh looped PDS starting either pull running them and securing them together in the midline. Soft tissue was irrigated and skin was closed using skin marie. A silver dressing was applied. The patient was awakened extubated and transferred recovery in stable condition. My physician habilitation assistant was present for the entire case. He was instrumental in exposure throughout my dissection as well as with assistance on the anastomosis, wound closure and dressing placement. I attest to the content of the Intraoperative Record and any orders documented therein. Any exceptions are noted below.
[2021-03-13] MEDS ORDERED: NALOXONE HCL 0.4 MG/1 ML VIAL/CARP IV PRN (14:43)
[2021-03-13] MEDS: SODIUM CHLORIDE 0.9% 1000ML 1,000 ML IV SCH (14:56)
[2021-03-13] MEDS: ONDANSETRON INJ 2 MG/ML 2 ML VIAL IV PRN (15:04)
[2021-03-13] MEDS: ACETAMINOPHEN 1,000 MG/100 ML VIAL IV SCH (15:04)
--- NOTE | 2021-03-13 15:23 | Anesthesiology Progress Note ---
Date of Service March 13, 2021 Anesthesia Post Procedure Vital Signs Vital Signs: Temp Pulse Pulse Resp BP BP Pulse Ox 03/13/21 15:07 36.6 C 64 16 151/87 H 97 03/13/21 14:30 61 16 143/81 H 96 03/13/21 14:20 36.6 C 64 62 16 151/88 H 98 03/13/21 14:10 62 24 153/84 H 99 03/13/21 14:00 66 23 140/81 98 03/13/21 13:50 36.1 C L 74 24 124/81 98 03/13/21 13:20 36.8 C 64 19 146/84 H 98 03/13/21 10:55 37.2 C 71 18 159/88 H 96 03/13/21 08:06 37.0 C 75 18 169/100 H 90 03/13/21 03:46 37.4 C 76 18 161/81 H 94 03/12/21 23:08 37.4 C 73 20 138/73 95 03/12/21 19:30 37.3 C 85 20 146/86 H 97 03/12/21 16:48 37.2 C 96 H 18 151/85 H 91 Pain Intensity Abdomen: Pain Intensity: 8 Transfer of Care Handoff Completed per policy Notes Mental Status: alert / awake / arousable and participated in evaluation Patient Amnestic to Procedure: Yes Nausea / Vomiting: adequately controlled Pain: adequately controlled Airway Patency, RR, SpO2: stable & adequate BP & HR: stable & adequate Hydration State: stable & adequate Anesthetic Complications: no major complications apparent
[2021-03-13] MEDS: NSS + 20MEQ KCL 20 MEQ/1,000 ML BAG IV SCH ×2 (15:33→20:16)
[2021-03-13] MEDS: PROMETHAZINE HCL 12.5 MG in SODIUM CHLORIDE 0.9% 50 ML IV PRN (16:12)
[2021-03-13] MEDS: MoRPHine SULFATE PCA 30 MG/30 ML IV PRN (16:17)
--- NOTE | 2021-03-13 18:03 | Hospitalist Progress Note ---
Date of Service March 13, 2021 Assessment & Plan (1) Intractable abdominal pain: Plan: -Patient with nearly complete colonic obstruction due to mass -presumed colon CA with localized yamel spread - GI and GS on board-- appreciate recommendations -S/p colonoscopy confirming malignant partially obstructing tumor in the ascending colon. For OR today with plan for right hemicolectomy - will also need established with oncology (which can ultimately be done as an OP) -Appreciate comanagement by GI/general surgery (2) Hypokalemia: Plan: * Likely due to decreased oral intake and multiple loose bowels * continue replacement (3) CRISTI (acute kidney injury): Plan: * Likely related to volume depletion from poor oral intake and persistent loose bowels * improved with IVF (4) Colonic mass: Plan: * See above (5) Hypothyroidism: Plan: * will resume post-op once oral intake initiated by general surgery (6) Irritable bowel syndrome: (7) Dyslipidemia: Plan: * Diet controlled (8) Benign essential hypertension: Plan: * Hold Norvasc for now (see above). BP acceptable. Will use IV if needed (9) Chronic reflux esophagitis: Plan: * Hold oral omeprazole and instead use IV PPI (pantoprazole) Plan: * Heparin for DVT prophylaxis. * Hold aspirin given plan for surgical intervention * Follow-up labs in the a.m. to trend * Plan of care to be D/W Dr. Bowie. Further orders as warranted Admission and Anticipated Discharge Date Admission Date: March 10, 2021 Subjective Patient seen on daily rounds today. Plan for OR today for right hemicolectomy. Anxious but voices no complaints or concerns. Denies fevers, chills, chest pain, shortness of breath, abdominal pain, nausea or vomiting. Nursing voices no complaints or concerns. pain overall improved with n.p.o. status. Review of Systems Review of Systems: All systems reviewed and are unremarkable except as noted in HPI and below Denies fevers, chills, headache, nasal congestion, sore throat, cough, chest pain, shortness of breath, abdominal pain, nausea, vomiting, dysuria, hematuria, frequency, skin lesions or rashes. Physical Exam Physical Exam: General: Resting comfortably in her hospital bed. NAD. Neck: No JVD. Negative hepatojugular reflex Cardiac: RRR without M/G/R Lungs: CTA without W/R/R Abdomen: Nondistended. Hypoactive X4. Tender in the right upper and left lower quadrants Extremities: No peripheral clubbing cyanosis or edema Neuro: A&O X4 cranial nerves II through XII are grossly intact no focal neuro deficits Skin: No obvious skin lesions or rashes Results & Data Results & Data ([facility]) Vital Signs (Past 12 Hours) Vital Signs Temp Pulse Pulse Resp BP Pulse Ox 03/13/21 17:24 68 24 139/81 91 03/13/21 16:20 68 26 H 146/81 H 93 03/13/21 15:46 61 18 153/84 H 97 03/13/21 15:07 36.6 C 64 16 151/87 H 97 03/13/21 14:30 61 16 143/81 H 96 03/13/21 14:20 36.6 C 64 62 16 151/88 H 98 03/13/21 14:10 62 24 153/84 H 99 03/13/21 14:00 66 23 140/81 98 03/13/21 13:50 36.1 C L 74 24 124/81 98 03/13/21 13:20 36.8 C 64 19 146/84 H 98 03/13/21 10:55 37.2 C 71 18 159/88 H 96 03/13/21 08:06 37.0 C 75 18 169/100 H 90 Laboratory Results 03/13/21 05:39 03/13/21 05:39 PG Care Time/CCT Total # of Minutes Spent Total Time Spent with Patient: Total time spent is greater than 50% in coordination of care (as documented) at patient's floor/unit and/or counseling patient: Coding Level of Care Code 29270 Subseq Hosp Care Lvl 2 Diagnoses Intractable abdominal pain R10.9 Hypokalemia E87.6 CRISTI (acute kidney injury) N17.9 Colonic mass K63.89 Hypothyroidism E03.9 Irritable bowel syndrome K58.0 Irritable bowel syndrome type: with diarrhea Dyslipidemia E78.5 Benign essential hypertension I10 Chronic reflux esophagitis K21.0 (1) Irritable bowel syndrome Irritable bowel syndrome type: with diarrhea Qualified Code(s): K58.0 - Irritable bowel syndrome with diarrhea
[2021-03-13] MEDS ORDERED: POTASSIUM CHLORIDE / WTR 10 MEQ/100 ML PLCT IV SCH (18:30)
[2021-03-14] MEDS: ACETAMINOPHEN 1,000 MG/100 ML VIAL IV SCH ×4 (00:05→23:48)
[2021-03-14] MEDS: MoRPHine SULFATE PCA 30 MG/30 ML IV PRN (02:17)
[2021-03-14] MEDS: NSS + 20MEQ KCL 20 MEQ/1,000 ML BAG IV SCH ×4 (02:23→19:24)
[2021-03-14] MEDS ORDERED: CALCIUM CARBONATE 500 MG CHEWABLE TAB PO PRN (05:40)
--- NOTE | 2021-03-14 06:21 | Electrocardiogram Report ---
Test Reason : Blood Pressure : / mmHG Vent. Rate : 073 BPM Atrial Rate : 073 BPM P-R Int : 196 ms QRS Dur : 108 ms QT Int : 398 ms P-R-T Axes : 047 -41 -13 degrees QTc Int : 438 ms Normal sinus rhythm Left axis deviation Incomplete right bundle branch block Moderate voltage criteria for LVH, may be normal variant Nonspecific ST and T wave abnormality Abnormal ECG When compared with ECG of 09-JAN-2013 09:38, Nonspecific T wave abnormality now evident in Anterolateral leads QT has lengthened Confirmed by Wisam Jerome ([id number]) on 03/14/2021 6:21:32 AM Referred By: Traci Patton Confirmed By:Wisam Jerome
--- NOTE | 2021-03-14 06:23 | Electrocardiogram Report ---
Test Reason : Blood Pressure : / mmHG Vent. Rate : 076 BPM Atrial Rate : 076 BPM P-R Int : 190 ms QRS Dur : 108 ms QT Int : 404 ms P-R-T Axes : 051 -44 009 degrees QTc Int : 454 ms Normal sinus rhythm Left axis deviation Moderate voltage criteria for LVH, may be normal variant Nonspecific ST abnormality Abnormal ECG When compared with ECG of 12-MAR-2021 17:05, No significant change was found Confirmed by Wisam Jerome ([id number] on 03/14/2021 6:23:10 AM Referred By: Traci Patton Confirmed By:Wisam Jerome
[2021-03-14 06:44] LABS: Basophils # (auto) 0.01 K/uL (0-0.2); Basophils % (auto) 0.1 %; Hematocrit (blood only) 36.1 % (37-47); Hemoglobin 11.6 g/dL (12.0-16.0); Immature Granulocytes # (auto) 0.04 K/uL (0.00-0.02); Immature Granulocytes % (auto) 0.5 %; Lymphocytes # (auto) 0.85 K/uL (1.2-3.4); Lymphocytes % (auto) 11.2 %; Mean Corpuscular Hemoglobin 27.8 pg (25-34); Mean Corpuscular Hgb Conc 32.1 g/dL (32-36); Mean Corpuscular Volume 86.6 fL (80-100); Mean Platelet Volume 9.9 fL (7.4-10.4); Monocytes # (auto) 0.54 K/uL (0.11-0.59); Monocytes % (auto) 7.1 %; Neutrophils # (auto) 6.17 K/uL (1.4-6.5); Neutrophils % (auto) 81.1 %; Platelet Count 172 K/uL (130-400); RDW Coefficient of Variation 13.4 % (11.5-14.5); RDW Standard Deviation 42.4 fL (36.4-46.3); Red Blood Count 4.17 M/uL (4.2-5.4); White Blood Count 7.61 K/uL (4.8-10.8)
[2021-03-14 07:05] LABS: BUN Creatinine Ratio 7.7 (10-20); Calcium 7.5 mg/dl (8.5-10.1); Creatinine Clr Calc Pharmacy 106.6 ml/min; Est GFR (African American) 90.9 ml/min; Est GFR (Non-African American) 78.4 ml/min; Magnesium 1.5 mg/dl (1.8-2.4); Potassium 3.9 mmol/L (3.5-5.1)
[2021-03-14] MEDS: PANTOprazole 40 MG in SYRINGE 0 ML IV SCH ×2 (09:04→20:28)
--- NOTE | 2021-03-14 09:30 | Surgery Progress Note ---
Date of Service March 14, 2021 Assessment & Plan (1) Colonic mass: Plan: pod 1 doing well discussed intra-op findings. will keep maza one more day for comfort. will let her have clears Dr. Walls covering for tomorrow if any issues. Admission and Anticipated Discharge Date Admission Date: March 10, 2021 Subjective pt seen. feeling well. states her pre-op pain is gone and her incisional pain is manageable. no nausea. overall feels well. Physical Exam Physical Exam: alert. nad abd: soft. dressings c/d/i. NED with serous output. Results & Data ([facility]) Vital Signs (Past 12 Hours) Vital Signs Temp Pulse Resp BP Pulse Ox 03/14/21 07:15 36.8 C 62 18 129/74 94 03/14/21 03:36 36.7 C 66 20 149/75 H 94 03/13/21 22:30 37.1 C 74 20 165/77 H 94 PG Care Time/CCT Total # of Minutes Spent Total Time Spent with Patient: Total time spent is greater than 50% in coordination of care (as documented) at patient's floor/unit and/or counseling patient: Coding Level of Care Code None Diagnoses Colonic mass K63.89
[2021-03-14] MEDS: ENOXAPARIN INJ 40 MG/0.4 ML SYR SQ SCH (10:08)
[2021-03-14] MEDS: SODIUM CHLORIDE 0.9% 1000ML 1,000 ML IV SCH (15:16)
--- NOTE | 2021-03-14 16:22 | Hospitalist Progress Note ---
Date of Service March 14, 2021 Assessment & Plan (1) Intractable abdominal pain: Plan: -Patient with nearly complete colonic obstruction due to mass -She is s/p open right hemicolectomyPOD #1 -presumed colon CA with localized yamel spreadpathology pending - GI and GS on board-- appreciate recommendations -Dietary advancement at discretion of general surgery -Pain control per general surgery - will also need established with oncology (which can ultimately be done as an OP) -Appreciate comanagement by GI/general surgery (2) Hypoxemia: Plan: -Likely postsurgical related -Patient with a history of asthma and some mild adventitious breath sounds today although she is not in any distress -Suspect rhonchi in part from poor cough effort given recent abdominal surgery -Encouraged continued incentive spirometry -Will order routine nebulized treatments next 24 hours then changed to as needed -Staff encouraged to remove supplemental oxygen and her pulse ox is 93% on room air (3) Hypokalemia: Plan: -Likely due to decreased oral intake and multiple loose bowels -Has since been replaced and resolved (4) Hypomagnesemia: Plan: -Replace (5) CRISTI (acute kidney injury): Plan: -Likely related to volume depletion from poor oral intake and persistent loose bowels -Resolved with IVF -Patient is tolerating clear liquids but only sips. We will keep maintenance fluids running but decrease rate to 80 cc/HR (6) Colonic mass: Plan: -See above (7) Hypothyroidism: Plan: -Resume Synthroid since tolerating sips of clears (8) Irritable bowel syndrome: (9) Dyslipidemia: Plan: -Diet controlled (10) Benign essential hypertension: Plan: -Resume Norvasc and losartan (11) Chronic reflux esophagitis: Plan: -Hold oral omeprazole and instead use IV PPI (pantoprazole) (12) Asthma: Plan: -Resume Singulair -Routine nebulized treatments Plan: -On Lovenox for DVT prophylaxis -Hold aspirin given recent surgery until full hemostasis is achieved -Follow-up labs in the a.m. to trend -Plan of care to be D/W Dr. Bowie. Further orders as warranted Admission and Anticipated Discharge Date Admission Date: March 10, 2021 Subjective Patient seen on daily rounds today. She is POD #1 s/p (open) right hemicolect rosanne with end-to-end anastomoses. Patient had an uneventful perioperative course. Currently resting comfortably. Has required supplemental oxygen at 1-2 L. Currently is 94% on 1 L. She denies feeling short of breath but claims she feels a "rattle" in her chest. She does have a longstanding history of asthma. She feels as if a "cough" would help but she is being cautious given her recent surgery. Her pain is controlled with morphine QC TECH pump The pain that she had in her right abdomen has nearly resolved. She is having incisional pain but it is tolerable. She was ordered clear liquids by the surgeon and is tolerating this. She denies flatus. Denies nausea or vomiting. Review of Systems Review of Systems: All systems reviewed and are unremarkable except as noted in HPI and below Denies fevers, chills, headache, nasal congestion, sore throat, cough, chest pain, shortness of breath, abdominal pain, nausea, vomiting, dysuria, hematuria, frequency, skin lesions or rashes. Physical Exam Physical Exam: General: Resting comfortably in her hospital bed. NAD. Neck: No JVD. Negative hepatojugular reflex Cardiac: RRR without M/G/R Lungs: Breathing comfortably on supplemental oxygen. Speaking full sentences without dyspnea. Coarse rhonchi/harsh tracheal sounds that mobilizes with deep inhalation Abdomen: Normoactive X4. Soft and nontender in all quadrants. Extremities: No peripheral clubbing cyanosis or edema Neuro: A&O X4 cranial nerves II through XII are grossly intact no focal neuro deficits Skin: No obvious skin lesions or rashes Results & Data Results & Data ([facility]) Vital Signs (Past 12 Hours) Vital Signs Temp Pulse Pulse Resp BP Pulse Ox 03/14/21 15:12 36.6 C 71 18 146/82 H 93 03/14/21 13:47 76 18 96 03/14/21 11:39 36.7 C 62 17 123/76 96 03/14/21 07:15 36.8 C 62 18 129/74 94 Laboratory Results 03/14/21 06:26 03/14/21 06:26 Pathology pending PG Care Time/CCT Total # of Minutes Spent Total Time Spent with Patient: Total time spent is greater than 50% in coordination of care (as documented) at patient's floor/unit and/or counseling patient: Coding [place] [address] Subseq Hosp Care Lvl 2 Patient Type Established History Expanded Problem Focused Exam Expanded Problem Focused Medical Decision Making Moderate Complexity Diagnoses Intractable abdominal pain R10.9 Hypokalemia E87.6 CRISTI (acute kidney injury) N17.9 Colonic mass K63.89 Hypothyroidism E03.9 Irritable bowel syndrome K58.0 Irritable bowel syndrome type: with diarrhea Dyslipidemia E78.5 Benign essential hypertension I10 Chronic reflux esophagitis K21.0 Hypoxemia R09.02 Asthma J45.909 Hypomagnesemia E83.42 (1) Irritable bowel syndrome Irritable bowel syndrome type: with diarrhea Qualified Code(s): K58.0 - Irritable bowel syndrome with diarrhea
[2021-03-14] MEDS: MAGNESIUM SULFATE / D5W 1 GM/100 ML BAG IV SCH ×2 (16:51→19:11)
[2021-03-14] MEDS: MONTELUKAST SODIUM 10 MG TABLET PO SCH (20:27)
[2021-03-14] MEDS: ALBUT/IPRATROP 3MG/0.5MG NEB 3 ML VIAL NEB SCH (20:34)
[2021-03-15] MEDS: NSS + 20MEQ KCL 20 MEQ/1,000 ML BAG IV SCH ×2 (05:35→18:30)
[2021-03-15] MEDS: LEVOTHYROXINE SODIUM 75 MCG TABLET PO SCH (05:35)
[2021-03-15 06:24] LABS: Basophils # (auto) 0.01 K/uL (0-0.2); Basophils % (auto) 0.2 %; Eosinophils # (auto) 0.16 K/uL (0-0.5); Eosinophils % (auto) 2.6 %; Hematocrit (blood only) 34.8 % (37-47); Hemoglobin 11.2 g/dL (12.0-16.0); Immature Granulocytes # (auto) 0.06 K/uL (0.00-0.02); Lymphocytes # (auto) 1.24 K/uL (1.2-3.4); Lymphocytes % (auto) 19.8 %; Mean Corpuscular Hemoglobin 28.5 pg (25-34); Mean Corpuscular Hgb Conc 32.2 g/dL (32-36); Mean Corpuscular Volume 88.5 fL (80-100); Monocytes # (auto) 0.58 K/uL (0.11-0.59); Monocytes % (auto) 9.3 %; Neutrophils # (auto) 4.21 K/uL (1.4-6.5); Neutrophils % (auto) 67.1 %; Platelet Count 167 K/uL (130-400); RDW Coefficient of Variation 13.7 % (11.5-14.5); RDW Standard Deviation 44.8 fL (36.4-46.3); Red Blood Count 3.93 M/uL (4.2-5.4); White Blood Count 6.26 K/uL (4.8-10.8)
[2021-03-15 07:05] LABS: BUN Creatinine Ratio 8.6 (10-20); Calcium 7.6 mg/dl (8.5-10.1); Creatinine Clr Calc Pharmacy 112.1 ml/min; Est GFR (African American) 96.6 ml/min; Est GFR (Non-African American) 83.3 ml/min; Magnesium 1.7 mg/dl (1.8-2.4); Potassium 3.6 mmol/L (3.5-5.1)
[2021-03-15] MEDS: ALBUT/IPRATROP 3MG/0.5MG NEB 3 ML VIAL NEB SCH ×3 (08:01→15:18)
[2021-03-15] MEDS: ENOXAPARIN INJ 40 MG/0.4 ML SYR SQ SCH (08:19)
[2021-03-15] MEDS: amLODIPine BESYLATE 5 MG TAB PO SCH (08:26)
[2021-03-15] MEDS: LOSARTAN POTASSIUM 50 MG TAB PO SCH (08:26)
[2021-03-15] MEDS: PANTOprazole 40 MG in SYRINGE 0 ML IV SCH ×2 (08:26→21:57)
[2021-03-15] MEDS: ACETAMINOPHEN 1,000 MG/100 ML VIAL IV SCH (08:31)
[2021-03-15] MEDS: MoRPHine SULFATE PCA 30 MG/30 ML IV PRN ×2 (08:39→23:51)
--- NOTE | 2021-03-15 08:50 | Surgery Progress Note ---
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 Walls Admission and Anticipated Discharge Date Admission Date: March 10, 2021 Subjective Patient says she is doing okay. She endorses some abdominal discomfort. Would like her maza removed. Physical Exam Physical Exam: awake/alert, sitting up Respiratory: normal respiratory effort Gastrointestinal (Abdomen): Inspection/Auscultation: + abdominal surgical incision (c/d/i, surgical marie in place, no signs of infection) and + abdominal surgical drain present (serosang. (180cc)) Percussion/Palpation: + abdomen tender (some vielka-incisional discomfort to palpation) and abdomen soft Results & Data ([facility]) Vital Signs (Past 12 Hours) Vital Signs Temp Pulse Pulse Resp BP Pulse Ox 03/15/21 08:02 78 16 95 03/15/21 07:51 37.2 C 85 17 126/70 92 03/15/21 03:42 36.9 C 77 20 163/76 H 96 03/14/21 22:51 37.1 C 83 22 146/73 H 93 PG Care Time/CCT Total # of Minutes Spent Total Time Spent with Patient: Total time spent is greater than 50% in coordination of care (as documented) at patient's floor/unit and/or counseling patient: Coding Level of Care Code None Diagnoses Colonic mass K63.89
[2021-03-15] MEDS ORDERED: MAGNESIUM SULFATE / D5W 1 GM/100 ML BAG IV ONE (11:00)
[2021-03-15] MEDS: SODIUM CHLORIDE 0.9% 1000ML 1,000 ML IV SCH (17:00)
[2021-03-15] MEDS ORDERED: ALBUT/IPRATROP 3MG/0.5MG NEB 3 ML VIAL INH PRN (19:00)
--- NOTE | 2021-03-15 19:44 | Hospitalist Progress Note ---
Date of Service March 15, 2021 Assessment & Plan (1) Intractable abdominal pain: Plan: -Patient with nearly complete colonic obstruction due to mass -She is s/p open right hemicolectomyPOD # -presumed colon CA with localized yamel spreadpathology pending - GI and GS on board-- appreciate recommendations -Dietary advancement at discretion of general surgery -Pain control per general surgery - will also need established with oncology (which can ultimately be done as an OP) -Appreciate comanagement by GI/general surgery (2) Hypomagnesemia: Plan: * Continue to replace (3) Hypokalemia: Plan: * Likely due to decreased oral intake and multiple loose bowels * Supplemented and replaced (4) CRISTI (acute kidney injury): Plan: * Likely related to volume depletion from poor oral intake and persistent loose bowels * IV hydration initiated * Follow-up labs in the a.m. to trend (5) Colonic mass: Plan: * See above (6) Hypothyroidism: Plan: * Resume levothyroxine (7) Irritable bowel syndrome: Plan: -Unfortunately, now that she is s/p hemicolectomydiarrhea/loose stools will only get worse. -Once she is healed, (and not anytime soon but rather in several months)can consider colestipol. Can discuss this with PCP (8) Dyslipidemia: Plan: * Diet controlled (9) Benign essential hypertension: Plan: * Norvasc and Cozaar have since been resumed (10) Chronic reflux esophagitis: Plan: * IV PPI on board (11) Asthma: Plan: * Adventitious breath sounds noted yesterday that have since resolved with a ddition of nebulized treatments and resumption of Singulair Plan: -Patient with nearly complete colonic obstruction due to mass -She is s/p open right hemicolectomyPOD #1 -presumed colon CA with localized yamel spreadpathology pending - GI and GS on board-- appreciate recommendations -Dietary advancement at discretion of general surgery -Pain control per general surgery - will also need established with oncology (which can ultimately be done as an OP) -Appreciate comanagement by GI/general surgery Admission and Anticipated Discharge Date Admission Date: March 10, 2021 Subjective Patient seen on daily rounds today. She is POD #2 s/p right hemicolectomy. Overall, pain is adequately controlled with INSECTICIDE MAKER pump. Tolerating clear liquids. Denies abdominal pain or nausea. Did have one loose BM this morning but has not yet passed flatus. Surgery on board. Review of Systems Review of Systems: All systems reviewed and are unremarkable except as noted in HPI and below Denies fevers, chills, headache, nasal congestion, sore throat, cough, chest pain, shortness of breath, abdominal pain, nausea, vomiting, dysuria, hematuria, frequency, skin lesions or rashes. Physical Exam Physical Exam: General: Resting comfortably in her hospital bed. NAD. Neck: No JVD. Negative hepatojugular reflex Cardiac: RRR without M/G/R Lungs: CTA without W/R/R Abdomen: Abdomen nondistended. Normal active X4. Soft and nontender in all quadrants. Extremities: No peripheral clubbing cyanosis or edema Neuro: A&O X4 cranial nerves II through XII are grossly intact no focal neuro deficits Skin: No obvious skin lesions or rashes Results & Data Results & Data ([facility]) Vital Signs (Past 12 Hours) Vital Signs Temp Pulse Pulse Resp BP BP Pulse Ox 03/15/21 15:18 83 16 94 03/15/21 15:13 36.6 C 83 16 144/86 H 96 03/15/21 12:06 36.6 C 84 18 121/74 94 03/15/21 11:25 78 16 95 03/15/21 08:02 78 16 95 03/15/21 07:51 37.2 C 85 17 126/70 92 Laboratory Results 03/15/21 05:59 03/15/21 05:59 PG Care Time/CCT Total # of Minutes Spent Total Time Spent with Patient: Total time spent is greater than 50% in coordination of care (as documented) at patient's floor/unit and/or counseling patient: Coding [place] [address] Subseq Hosp Care Lvl 1 Patient Type Established History Problem Focused Exam Problem Focused Medical Decision Making Straight Forward Diagnoses Intractable abdominal pain R10.9 Hypokalemia E87.6 CRISTI (acute kidney injury) N17.9 Colonic mass K63.89 Hypothyroidism E03.9 Irritable bowel syndrome K58.0 Irritable bowel syndrome type: with diarrhea Dyslipidemia E78.5 Benign essential hypertension I10 Chronic reflux esophagitis K21.0 Hypomagnesemia E83.42 Asthma J45.909 (1) Irritable bowel syndrome Irritable bowel syndrome type: with diarrhea Qualified Code(s): K58.0 - Irritable bowel syndrome with diarrhea
[2021-03-15] MEDS: MONTELUKAST SODIUM 10 MG TABLET PO SCH (21:10)
[2021-03-16] MEDS: LEVOTHYROXINE SODIUM 75 MCG TABLET PO SCH (05:26)
[2021-03-16] MEDS: NSS + 20MEQ KCL 20 MEQ/1,000 ML BAG IV SCH ×2 (07:25→21:04)
[2021-03-16] MEDS: ONDANSETRON INJ 2 MG/ML 2 ML VIAL IV PRN (07:26)
[2021-03-16 07:41] LABS: Basophils # (auto) 0.01 K/uL (0-0.2); Basophils % (auto) 0.1 %; Eosinophils # (auto) 0.29 K/uL (0-0.5); Eosinophils % (auto) 3.9 %; Hematocrit (blood only) 38.8 % (37-47); Hemoglobin 12.7 g/dL (12.0-16.0); Immature Granulocytes # (auto) 0.06 K/uL (0.00-0.02); Immature Granulocytes % (auto) 0.8 %; Lymphocytes % (auto) 13.6 %; Mean Corpuscular Hemoglobin 29.2 pg (25-34); Mean Corpuscular Hgb Conc 32.7 g/dL (32-36); Mean Corpuscular Volume 89.2 fL (80-100); Mean Platelet Volume 10.2 fL (7.4-10.4); Monocytes # (auto) 0.63 K/uL (0.11-0.59); Monocytes % (auto) 8.6 %; Neutrophils # (auto) 5.36 K/uL (1.4-6.5); Platelet Count 206 K/uL (130-400); RDW Coefficient of Variation 13.9 % (11.5-14.5); RDW Standard Deviation 45.5 fL (36.4-46.3); Red Blood Count 4.35 M/uL (4.2-5.4); White Blood Count 7.35 K/uL (4.8-10.8)
[2021-03-16 08:01] LABS: BUN Creatinine Ratio 8.5 (10-20); Calcium 8.2 mg/dl (8.5-10.1); Creatinine Clr Calc Pharmacy 119.9 ml/min; Est GFR (African American) 104.8 ml/min; Est GFR (Non-African American) 90.4 ml/min; Magnesium 1.1 mg/dl (1.8-2.4); Potassium 3.6 mmol/L (3.5-5.1)
[2021-03-16] MEDS ORDERED: ACETAMINOPHEN 325 MG TAB PO PRN (09:27)
--- NOTE | 2021-03-16 09:27 | Surgery Progress Note ---
Date of Service March 16, 2021 Assessment & Plan (1) Colonic mass: Plan: POD#3 open right hemicolectomy WBC 7.3, VSS Patient had a rough night, multiple complaints. From an abdominal standpoint she voices some mild nausea and bloating. She continues to use the DRAW HAND for pain control. She did have a small BM this AM For now we will continue patient on clears until symptoms improve. She denies much appetite at this time Her incisions are c/d/i. Abdomen is soft. NED drain is serous She has been sitting up in the chair, continue to work on ambulating as able as above. awaiting full return of bowel fx. D/w primary service...will consult PT. keep on clears for now. path pending. Admission and Anticipated Discharge Date Admission Date: March 10, 2021 Subjective Patient tearful this AM saying she did not have a great night. Had some back pain that was uncomfortable in addition to leaking from her IV site and around drain. Also reports some abdominal bloating and nausea. No emesis. Not much flatus, but says she had a small BM this AM. Denies much of an appetite. Physical Exam Physical Exam: awake/alert Respiratory: normal respiratory effort Gastrointestinal (Abdomen): Inspection/Auscultation: + abdominal surgical incision (c/d/i with midline marie) and + abdominal surgical drain present (serous drainage; dressing c/d/i) Percussion/Palpation: + abdomen tender (some expected ttp vielka-incisionally) and abdomen soft Results & Data ([facility]) Vital Signs (Past 12 Hours) Vital Signs Temp Pulse Resp BP Pulse Ox 03/16/21 08:02 36.9 C 84 20 144/86 H 94 03/16/21 05:05 37.4 C 72 18 133/84 96 03/16/21 01:08 37.8 C H 77 18 128/91 96 03/15/21 23:06 37.0 C 88 16 126/84 93 PG Care Time/CCT Total # of Minutes Spent Total Time Spent with Patient: Total time spent is greater than 50% in coordination of care (as documented) at patient's floor/unit and/or counseling patient: Coding Level of Care Code None Diagnoses Colonic mass K63.89
[2021-03-16] MEDS: ENOXAPARIN INJ 40 MG/0.4 ML SYR SQ SCH (10:06)
[2021-03-16] MEDS: PROMETHAZINE HCL 12.5 MG in SODIUM CHLORIDE 0.9% 50 ML IV PRN (10:08)
[2021-03-16] MEDS: amLODIPine BESYLATE 5 MG TAB PO SCH (10:14)
[2021-03-16] MEDS: PANTOprazole 40 MG in SYRINGE 0 ML IV SCH ×2 (10:14→21:04)
[2021-03-16] MEDS: LOSARTAN POTASSIUM 50 MG TAB PO SCH (10:15)
[2021-03-16] MEDS: MAGNESIUM SULFATE / D5W 1 GM/100 ML BAG IV SCH ×3 (11:32→15:30)
[2021-03-16] MEDS: SODIUM CHLORIDE 0.9% 1000ML 1,000 ML IV SCH (13:25)
--- NOTE | 2021-03-16 18:04 | Hospitalist Progress Note ---
Date of Service March 16, 2021 Assessment & Plan (1) Adenocarcinoma of colon: Plan: s/p right-sided hemicolectomy by Dr Campbell POD #3 clears, IVF, [employer] pain control prn (2) Colonic obstruction: Plan: 2nd to colon ca s/p hemicolectomy by Dr Campbell POD #3 from such awaiting return of bowel function management per Dr Campbell cont clears (3) Dyspepsia: Plan: pepcid IV x 1 cont PPI twice daily this is likely due to bowel function not returning post-op (4) Hypoxia: Plan: likely due to atelectasis continue incentive mag cxr w/ atelectasis only; no pulm edema, no pneumonia follow carefully low threshold to try albuterol for cough/congestion (5) Hypomagnesemia: Plan: replace with mag sulfate 3grams IV x 1 repeat mag level am (6) CRISTI (acute kidney injury): Plan: Cr 1.5 at peak now <1 resolved (7) Morbid obesity: Plan: BMI 45.5 (8) Hypothyroidism: Plan: TSH 3.9 in January 2021 cont synthroid (9) Dyslipidemia: (10) Benign essential hypertension: Plan: controlled w/ current meds (11) Asthma: Plan: without exacerbation at this time cxr today w/ atelectasis only (12) DVT prophylaxis: Plan: lovenox daily Plan: care plan d/w Dr Campbell Admission and Anticipated Discharge Date Admission Date: March 10, 2021 Subjective patient resting comfortably in bed still requiring NC o2 however, no orthopnea - laying flat in the bed c/o abd pain using [employer] pump for pain control minimal dyspnea is coughing, with some sputum production no flatus had a tiny stool this am, however low-grade fever yesterday but didn't even realize she had a temp Review of Systems Review of Systems: gen - no chills, some fatigue, some anorexia CV - no chest pain, no orthopnea pulm - mild cough, no significant dyspnea GI - bloating, pain, intermittent nausea with dyspepsia/reflux symptoms - no dysuria, voiding fine Physical Exam Physical Exam: gen - morbidly obese, NAD, lying flat in bed comfortably mouth - MMM neck - no JVD heart - RRR, s1 s2, no murmur lungs - decreased BS b/l, mild fine rales b/l, no wheeze abd - distended, BS+ but decreased, tender (incision), drain in place ext - no edema, pulses 2+ b/l skin - abd wall incision c/d/i; marie intact; no drainage, no erythema Results & Data Results & Data ([facility]) Vital Signs (Past 12 Hours) Vital Signs Temp Pulse Resp BP Pulse Ox 03/16/21 14:36 37.5 C 72 18 148/89 H 99 03/16/21 08:02 36.9 C 84 20 144/86 H 94 Laboratory Results CBC, BMP wnl mag 1.1 PG Care Time/CCT Total # of Minutes Spent Total Time Spent with Patient: Total time spent is greater than 50% in coordination of care (as documented) at patient's floor/unit and/or counseling patient: Coding Level of Care Code 39366 Subseq Hosp Care Lvl 2 Diagnoses Adenocarcinoma of colon C18.9 Colonic obstruction K56.609 Dyspepsia R10.13 Hypoxia R09.02 Hypomagnesemia E83.42 CRISTI (acute kidney injury) N17.9 Morbid obesity E66.01 Hypothyroidism E03.9 Dyslipidemia E78.5 Benign essential hypertension I10 Asthma J45.909 DVT prophylaxis Z29.9
--- NOTE | 2021-03-16 18:18 | XRay Report ---
XR chest 1V portable HISTORY: hypoxia, cough, b/l rales COMPARISON: 03/12/2021. FINDINGS: There are low lung volumes. No pneumothorax. No pleural effusions. The cardiac silhouette i s normal in size. Right midlung zone and left lung base linear densities which are new from the prior study. IMPRESSION: Right midlung zone and left basilar linear densities. This favors subsegmental atelectasis. A low-gra de pneumonitis is considered less likely but not entirely excluded. ACT 112: Negative or not required by law. Electronically signed by: Mahin Roldan M.D. 03/16/2021 6:16 PM
[2021-03-16] MEDS ORDERED: FAMOTIDINE 20 MG in SYRINGE 3 ML IV ONE (18:30)
[2021-03-16] MEDS: MONTELUKAST SODIUM 10 MG TABLET PO SCH (21:07)
[2021-03-16] MEDS: MoRPHine SULFATE PCA 30 MG/30 ML IV PRN (21:30)
[2021-03-17] MEDS: LEVOTHYROXINE SODIUM 75 MCG TABLET PO SCH (05:45)
[2021-03-17 06:42] LABS: Calcium 8.1 mg/dl (8.5-10.1); Creatinine Clr Calc Pharmacy 141.5 ml/min; Est GFR (African American) 113.4 ml/min; Est GFR (Non-African American) 97.8 ml/min; Magnesium 1.9 mg/dl (1.8-2.4); Potassium 3.7 mmol/L (3.5-5.1)
[2021-03-17] MEDS: amLODIPine BESYLATE 5 MG TAB PO SCH (08:35)
[2021-03-17] MEDS: NSS + 20MEQ KCL 20 MEQ/1,000 ML BAG IV SCH ×2 (08:35→21:02)
[2021-03-17] MEDS: PANTOprazole 40 MG in SYRINGE 0 ML IV SCH ×2 (08:36→19:43)
[2021-03-17] MEDS: ENOXAPARIN INJ 40 MG/0.4 ML SYR SQ SCH (08:36)
[2021-03-17] MEDS: LOSARTAN POTASSIUM 50 MG TAB PO SCH (08:36)
--- NOTE | 2021-03-17 10:27 | Surgery Progress Note ---
Date of Service March 17, 2021 Assessment & Plan (1) Adenocarcinoma of colon: Plan: POD 4 add Pepcid keep on clears still using YARN FINISHER as above. slowly improving. still awaiting return of bowel fx. path pending. clears only for now. Admission and Anticipated Discharge Date Admission Date: March 10, 2021 Subjective c/o heartburn, upset stomach, loose BM but no flatus Physical Exam Gastrointestinal (Abdomen): Inspection/Auscultation: + abdominal surgical incision (dry, no erythema); abdomen not distended Percussion/Palpation: abdomen soft Results & Data ([facility]) Vital Signs (Past 12 Hours) Vital Signs Temp Pulse Resp BP Pulse Ox 03/17/21 07:39 36.8 C 70 18 147/73 H 98 03/16/21 22:50 37.2 C 74 16 135/73 96 PG Care Time/CCT Total # of Minutes Spent Total Time Spent with Patient: Total time spent is greater than 50% in coordination of care (as documented) at patient's floor/unit and/or counseling patient: Coding Level of Care Code None Diagnoses Adenocarcinoma of colon C18.9
[2021-03-17] MEDS ORDERED: FAMOTIDINE 20 MG in SYRINGE 3 ML IV ONE (11:00)
[2021-03-17] MEDS: ONDANSETRON INJ 2 MG/ML 2 ML VIAL IV PRN (14:46)
[2021-03-17] MEDS: SODIUM CHLORIDE 0.9% 1000ML 1,000 ML IV SCH (14:47)
[2021-03-17] MEDS: MoRPHine SULFATE PCA 30 MG/30 ML IV PRN (15:53)
[2021-03-17] MEDS: MONTELUKAST SODIUM 10 MG TABLET PO SCH (19:42)
--- NOTE | 2021-03-17 21:53 | Hospitalist Progress Note ---
Date of Service March 17, 2021 Assessment & Plan (1) Adenocarcinoma of colon: Plan: s/p right-sided hemicolectomy by Dr Campbell POD #4 remains on clears - awaiting bowel function return cont IVF cont KETTLE FIRER appreciate gen surg assistance (2) Colonic obstruction: Plan: 2nd to colon ca s/p hemicolectomy by Dr Campbell POD #4 from such management per Dr Campbell cont clears (3) Dyspepsia: Plan: 2nd to issues above cont PPI twice daily this will improve once bowel function returns (4) Hypoxia: Plan: likely due to atelectasis continue incentive mag cxr yesterday w/ atelectasis only; no pulm edema, no pneumonia follow carefully (5) Hypomagnesemia: Plan: replaced and resolved repeat mag in am (6) CRISTI (acute kidney injury): Plan: Cr 1.5 at peak now <1 resolved (7) Morbid obesity: Plan: BMI 45.5 (8) Hypothyroidism: Plan: TSH 3.9 in January 2021 cont synthroid (9) Dyslipidemia: (10) Benign essential hypertension: Plan: controlled w/ current meds (11) Asthma: Plan: without exacerbation at this time cxr today w/ atelectasis only (12) DVT prophylaxis: Plan: lovenox daily Plan: spoke with patient's by phone - gave update and plan of care Admission and Anticipated Discharge Date Admission Date: March 10, 2021 Subjective pt continues to have dyspepsia, nausea, bloating skipped dinner tonight due to the above symptoms no flatus tiny stool again this am no dyspnea no orthopnea Review of Systems Review of Systems: gen - no fevers or chills; fatigue present CV - no chest pain pulm - some cough, minimal sputum production GI - no vomiting despite other GI symptoms - voiding w/o difficulty Physical Exam Physical Exam: gen - morbidly obese, NAD, lying flat in bed comfortably, coughing mouth - MMM neck - no JVD heart - RRR, s1 s2, no murmur lungs - decreased BS b/l, mild fine rales b/l, no wheeze abd - distended, BS+ but improved today, incisional tenderness, drain in place ext - no edema, pulses 2+ b/l skin - abd wall incision c/d/i; marie intact psych - a/o x 3 Results & Data Results & Data ([facility]) Vital Signs (Past 12 Hours) Vital Signs Temp Pulse Resp BP Pulse Ox 03/17/21 16:08 37.2 C 79 18 143/80 H 95 Laboratory Results Laboratory Results - last 24 hr 03/17/21 05:54 Sodium 138 Potassium 3.7 Chloride 106 Carbon Dioxide 27 Anion Gap 5.0 BUN 7 Creatinine 0.61 Est Cr Clr Drug Dosing 141.5 Est GFR ( Amer) 113.4 Est GFR (Non-Af Amer) 97.8 BUN/Creatinine Ratio 12.0 Glucose 99 Calcium 8.1 L Magnesium 1.9 PG Care Time/CCT Total # of Minutes Spent Total Time Spent with Patient: Total time spent is greater than 50% in coordination of care (as documented) at patient's floor/unit and/or counseling patient: Coding Level of Care Code 89722 Subseq Hosp Care Lvl 2 Diagnoses Adenocarcinoma of colon C18.9 Colonic obstruction K56.609 Dyspepsia R10.13 Hypoxia R09.02 Hypomagnesemia E83.42 CRISTI (acute kidney injury) N17.9 Morbid obesity E66.01 Hypothyroidism E03.9 Dyslipidemia E78.5 Benign essential hypertension I10 Asthma J45.909 DVT prophylaxis Z29.9
[2021-03-18] MEDS: LEVOTHYROXINE SODIUM 75 MCG TABLET PO SCH (05:22)
[2021-03-18 07:08] LABS: Hematocrit (blood only) 37.3 % (37-47); Mean Corpuscular Hemoglobin 28.6 pg (25-34); Mean Corpuscular Hgb Conc 32.2 g/dL (32-36); Mean Corpuscular Volume 88.8 fL (80-100); Platelet Count 217 K/uL (130-400); RDW Coefficient of Variation 13.6 % (11.5-14.5); White Blood Count 6.03 K/uL (4.8-10.8)
[2021-03-18 07:40] LABS: BUN Creatinine Ratio 8.2 (10-20); Calcium 8.2 mg/dl (8.5-10.1); Creatinine Clr Calc Pharmacy 121.6 ml/min; Est GFR (African American) 106.5 ml/min; Est GFR (Non-African American) 91.9 ml/min; Magnesium 1.6 mg/dl (1.8-2.4); Phosphorus 2.7 mg/dl (2.5-4.9); Potassium 3.7 mmol/L (3.5-5.1)
[2021-03-18] MEDS: LOSARTAN POTASSIUM 50 MG TAB PO SCH (08:56)
[2021-03-18] MEDS: PANTOprazole 40 MG in SYRINGE 0 ML IV SCH ×2 (08:56→20:13)
[2021-03-18] MEDS: amLODIPine BESYLATE 5 MG TAB PO SCH (08:56)
[2021-03-18] MEDS: ENOXAPARIN INJ 40 MG/0.4 ML SYR SQ SCH (08:56)
[2021-03-18] MEDS: NSS + 20MEQ KCL 20 MEQ/1,000 ML BAG IV SCH ×2 (08:57→20:17)
[2021-03-18] MEDS: MAGNESIUM SULFATE / D5W 1 GM/100 ML BAG IV SCH ×2 (10:07→12:21)
--- NOTE | 2021-03-18 10:20 | Surgery Progress Note ---
Date of Service March 18, 2021 Assessment & Plan (1) Colonic mass: Plan: schedule Tylenol, add Toradol prn po pepcid ambulate cont clears still with no appetite and "bloating."... she is having loose bm's.... will d/c NED path pending. will check KUB. stay on clears for now. Admission and Anticipated Discharge Date Admission Date: March 10, 2021 Subjective some liquid stool, no flatus, c/o heartburn, some sips Physical Exam Gastrointestinal (Abdomen): Inspection/Auscultation: abdomen not distended Percussion/Palpation: abdomen soft Results & Data ([facility]) Vital Signs (Past 12 Hours) Vital Signs Temp Pulse Resp BP Pulse Ox 03/18/21 07:37 37.3 C 77 17 137/83 98 03/17/21 22:47 37.3 C 75 20 145/81 H 96 PG Care Time/CCT Total # of Minutes Spent Total Time Spent with Patient: Total time spent is greater than 50% in coordination of care (as documented) at patient's floor/unit and/or counseling patient: Coding Level of Care Code None Diagnoses Colonic mass K63.89
[2021-03-18] MEDS ORDERED: KETOROLAC TROMETHAMINE 15 MG/ML VIAL IV PRN (10:30)
[2021-03-18] MEDS: FAMOTIDINE 20 MG TAB PO SCH (11:16)
[2021-03-18] MEDS: ACETAMINOPHEN 500 MG TAB PO SCH ×2 (11:16→18:18)
[2021-03-18] MEDS: ONDANSETRON INJ 2 MG/ML 2 ML VIAL IV PRN (13:56)
[2021-03-18] MEDS: SODIUM CHLORIDE 0.9% 1000ML 1,000 ML IV SCH (14:30)
--- NOTE | 2021-03-18 16:05 | XRay Report ---
KUB HISTORY: Nausea. Postop. COMPARISON: Abdomen and pelvis CTA 321. FINDINGS: Interval midline skin marie consistent with postoperative change. There is a surgical chito in within the right upper quadrant. Evidence for prior cholecystectomy. Mildly dilated gas-filled loo ps of large and small bowel are seen throughout the abdomen. The stomach is also mildly distended gas filled. Small bowel loops measure up to 3.8 cm in diameter. Findings favor a postoperative ileus. N o renal calculi. No ureteral calculi. No pneumoperitoneum or pneumatosis. IMPRESSION: Recent postoperative changes with mildly dilated gas-filled loops of large and small bowel seen throu ghout the abdomen. Findings favor a postoperative ileus. ACT 112: Negative or not required by law. Electronically signed by: Mahin Roldan M.D. 03/18/2021 4:03 PM
[2021-03-18] MEDS: MONTELUKAST SODIUM 10 MG TABLET PO SCH (20:13)
--- NOTE | 2021-03-18 22:25 | Hospitalist Progress Note ---
Date of Service March 18, 2021 Assessment & Plan (1) Adenocarcinoma of colon: Plan: s/p right-sided hemicolectomy by Dr Campbell POD #5 remains on clears - awaiting bowel function return cont IVF cont GLASS ENGRAVER appreciate gen surg assistance walking encouraged (2) Colonic obstruction: Plan: 2nd to colon ca s/p hemicolectomy by Dr Campbell POD #5 from such management per Dr Campbell cont clears (3) Dyspepsia: Plan: 2nd to issues above cont PPI twice daily this will improve once bowel function returns (4) Hypoxia: Plan: likely due to atelectasis continue incentive mag cxr yesterday w/ atelectasis only; no pulm edema, no pneumonia follow carefully as she has significant positive fluid balance since admission (5) Hypomagnesemia: Plan: replace again with IV mag repeat level am (6) CRISTI (acute kidney injury): Plan: Cr 1.5 at peak now <1 resolved (7) Morbid obesity: Plan: BMI 45 (8) Hypothyroidism: Plan: TSH 3.9 in January 2021 cont synthroid (9) Dyslipidemia: (10) Benign essential hypertension: Plan: controlled w/ losartan & amlodipine (11) Asthma: Plan: without exacerbation at this time (12) DVT prophylaxis: Plan: lovenox daily Plan: spoke with patient's by phone yesterday - gave update Admission and Anticipated Discharge Date Admission Date: March 10, 2021 Subjective patient still feeling sick on her stomach, dyspepsia, nausea, reflux symptoms. no flatus - minimal, if any. BUT - has started passing more stools today. no dyspnea at rest. Review of Systems Review of Systems: gen - no fever; no chills CV - no chest pain pulm - cough present but no dyspnea GI - tender around incision area; bloating Physical Exam Physical Exam: gen - morbidly obese, NAD, lying flat in bed comfortably mouth - MMM neck - no JVD heart - RRR, s1 s2, no murmur lungs - decreased BS b/l bases, otherwise CTA b/l abd - distended, BS+, incisional tenderness only, drain in place ext - no edema, pulses 2+ b/l skin - abd wall incision c/d/i; marie intact psych - a/o x 3 Results & Data Results & Data ([facility]) Vital Signs (Past 12 Hours) Vital Signs Temp Pulse Resp BP Pulse Ox 03/18/21 15:05 37.1 C 76 17 127/81 97 Laboratory Results Laboratory Results - last 24 hr 03/18/21 03/18/21 06:55 06:55 WBC 6.03 RBC 4.20 Hgb 12.0 Hct 37.3 MCV 88.8 MCH 28.6 MCHC 32.2 RDW Std Deviation 44.0 RDW Coeff of Mamadou 13.6 Plt Count 217 MPV 10.0 Sodium 138 Potassium 3.7 Chloride 106 Carbon Dioxide 29 Anion Gap 3.0 BUN 6 L Creatinine 0.71 Est Cr Clr Drug Dosing 121.6 Est GFR ( Amer) 106.5 Est GFR (Non-Af Amer) 91.9 BUN/Creatinine Ratio 8.2 L Glucose 104 H Calcium 8.2 L Phosphorus 2.7 Magnesium 1.6 L PG Care Time/CCT Total # of Minutes Spent Total Time Spent with Patient: Total time spent is greater than 50% in coordination of care (as documented) at patient's floor/unit and/or counseling patient: Coding Level of Care Code 05631 Subseq Hosp Care Lvl 2 Diagnoses Adenocarcinoma of colon C18.9 Colonic obstruction K56.609 Dyspepsia R10.13 Hypoxia R09.02 Hypomagnesemia E83.42 CRISTI (acute kidney injury) N17.9 Morbid obesity E66.01 Hypothyroidism E03.9 Dyslipidemia E78.5 Benign essential hypertension I10 Asthma J45.909 DVT prophylaxis Z29.9
[2021-03-19] MEDS: MoRPHine SULFATE PCA 30 MG/30 ML IV PRN (01:00)
[2021-03-19] MEDS: ACETAMINOPHEN 500 MG TAB PO SCH ×3 (03:25→18:34)
[2021-03-19] MEDS: LEVOTHYROXINE SODIUM 75 MCG TABLET PO SCH (05:03)
[2021-03-19 07:19] LABS: BUN Creatinine Ratio 12.8 (10-20); Calcium 8.1 mg/dl (8.5-10.1); Creatinine Clr Calc Pharmacy 137.1 ml/min; Est GFR (African American) 112.2 ml/min; Est GFR (Non-African American) 96.8 ml/min; Magnesium 1.2 mg/dl (1.8-2.4); Potassium 3.8 mmol/L (3.5-5.1)
[2021-03-19] MEDS: NSS + 20MEQ KCL 20 MEQ/1,000 ML BAG IV SCH (08:55)
[2021-03-19] MEDS: LOSARTAN POTASSIUM 50 MG TAB PO SCH (08:58)
[2021-03-19] MEDS: FAMOTIDINE 20 MG TAB PO SCH (08:58)
[2021-03-19] MEDS: ENOXAPARIN INJ 40 MG/0.4 ML SYR SQ SCH (09:01)
[2021-03-19] MEDS: PANTOprazole 40 MG in SYRINGE 0 ML IV SCH ×2 (09:02→20:32)
[2021-03-19] MEDS: amLODIPine BESYLATE 5 MG TAB PO SCH (09:57)
--- NOTE | 2021-03-19 10:19 | Surgery Progress Note ---
Date of Service March 19, 2021 Assessment & Plan (1) Adenocarcinoma of colon: Plan: POD 7 right colectomy improved keep on clears today d/c ROOFING LABORER remove drain start advancing diet tomorrow seen with Dr. Campbell as above. looks much better today. stay on clears...will likely advance diet tomorrow. Admission and Anticipated Discharge Date Admission Date: March 10, 2021 Subjective increasing flatus, liquid BMs, overall feeling better Physical Exam Gastrointestinal (Abdomen): Inspection/Auscultation: abdomen not distended Percussion/Palpation: abdomen soft Results & Data ([facility]) Vital Signs (Past 12 Hours) Vital Signs Temp Pulse Resp BP Pulse Ox 03/19/21 07:54 36.7 C 77 17 159/76 H 98 PG Care Time/CCT Total # of Minutes Spent Total Time Spent with Patient: Total time spent is greater than 50% in coordination of care (as documented) at patient's floor/unit and/or counseling patient: Coding Level of Care Code None Diagnoses Adenocarcinoma of colon C18.9
[2021-03-19] MEDS: MAGNESIUM SULFATE / D5W 1 GM/100 ML BAG IV SCH ×4 (13:09→18:33)
[2021-03-19] MEDS: MoRPHine SULFATE 2 MG/ML CARP IV PRN (14:30)
[2021-03-19] MEDS ORDERED: POTASSIUM CHLORIDE CRTAB 20 MEQ TABCR PO STA (17:56)
[2021-03-19] MEDS ORDERED: FUROSEMIDE 20 MG in SYRINGE 0 ML IV ONE (18:15)
[2021-03-19] MEDS: oxyCODONE HCL IR 5 MG TAB (IMMEDIATE RELEASE) PO PRN ×2 (18:33→23:32)
[2021-03-19] MEDS: MAGNESIUM OXIDE 400 MG TAB PO SCH (20:31)
[2021-03-19] MEDS: MONTELUKAST SODIUM 10 MG TABLET PO SCH (20:31)
--- NOTE | 2021-03-19 23:05 | Hospitalist Progress Note ---
Date of Service March 19, 2021 Assessment & Plan (1) Adenocarcinoma of colon: Plan: s/p right-sided hemicolectomy by Dr Campbell POD #6 remains on clears but bowel function finally returning stop IVF (see below) POT FLUXER d/c by surgery probable diet advancement this weekend by surgery - defer to them appreciate gen surg assistance extensive discussion with pt and her (over phone) re: path results they voiced understanding of the diagnosis (2) Colonic obstruction: Plan: 2nd to colon ca s/p hemicolectomy by Dr Campbell POD #6 from such management per Dr Campbell cont clears as above (3) Volume overload: Plan: 2nd to copious IV fluids over last 10 days. after discussing with Dr Campbell will stop IVF. lasix 20mg IV x 1. repeat bmp/mag am. (4) Dyspepsia: Plan: resolved now that bowel function has returned. cont PPI twice daily also getting pepcid (5) Hypoxia: Plan: likely due to atelectasis along with pulmonary edema/volume overload. improved sats with use of incentive mag and walking. diurese. stop fluids. (6) Hypomagnesemia: Plan: replace again with IV mag 4grams today. place on oral mag oxide 400 BID. repeat level am. mag levels are low due to lack of intake and loose stools. (7) CRISTI (acute kidney injury): Plan: Cr 1.5 at peak now <1 resolved (8) Morbid obesity: Plan: BMI 45 (9) Hypothyroidism: Plan: TSH 3.9 in January 2021 cont synthroid (10) Dyslipidemia: (11) Benign essential hypertension: Plan: controlled w/ losartan & amlodipine (12) Asthma: Plan: without exacerbation at this time mild wheeze is likely from pulmonary edema (13) DVT prophylaxis: Plan: lovenox daily Plan: 20 min discussion with patient and re: diagnosis/path reports total care coordination time 35 min Admission and Anticipated Discharge Date Admission Date: March 10, 2021 Subjective patient states he is passing lots of flatus now and plenty of stools nausea and dyspepsia are resolved tolerating clears better during the visit she asked about her pathology results the surgical path returned today I had the patient call her (who is sick and has a COVID test pending) was on speaker phone for the conversation reviewed path from colonoscopy biopsy reviewed surgical path discussed colon ca dx discussed that she had lymph node involvement explained that she will need oncology f/u and probable chemotherapy patient tearful; gave support Review of Systems Constitutional: no fever and no chills Respiratory: + cough and + wheezing; no dyspnea and no dyspnea on exertion Cardiovascular: no chest pain and no orthopnea Gastrointestinal: + abdominal pain (incisional); no belching, no bloating, no nausea, no vomiting and no blood in stools Physical Exam Physical Exam: gen - morbidly obese, NAD, lying flat in bed comfortably; oxygen has been d/c; tearful discussing the cancer dx mouth - MMM neck - no JVD heart - RRR, s1 s2, no murmur lungs - decreased BS b/l bases, end-exp wheeze today, basilar rales today abd - distended but improved, BS+, incisional tenderness only, drain has been d/c; softer today ext - no edema, pulses 2+ b/l skin - abd wall incision c/d/i; marie intact psych - a/o x 3 with tearful affect Results & Data Results & Data ([facility]) Vital Signs (Past 12 Hours) Vital Signs Temp Pulse Resp BP Pulse Ox Pulse Ox 03/19/21 22:34 37.1 C 74 16 144/82 H 95 03/19/21 15:52 36.8 C 73 16 151/86 H 95 03/19/21 14:31 93 03/19/21 13:43 99 Laboratory Results Laboratory Results - last 24 hr 03/19/21 06:19 Sodium 140 Potassium 3.8 Chloride 107 Carbon Dioxide 27 Anion Gap 6.0 BUN 8 Creatinine 0.63 Est Cr Clr Drug Dosing 137.1 Est GFR ( Amer) 112.2 Est GFR (Non-Af Amer) 96.8 BUN/Creatinine Ratio 12.8 Glucose 80 Calcium 8.1 L Magnesium 1.2 L Diagnostic Findings surgical path - colon adenocarcinoma with extensive lymph node involvement PG Care Time/CCT Total # of Minutes Spent Total Time Spent with Patient: Total time spent is greater than 50% in coordination of care (as documented) at patient's floor/unit and/or counseling patient: Coding Level of Care Code 57834 Subseq Hosp Care Lvl 3 Diagnoses Adenocarcinoma of colon C18.9 Colonic obstruction K56.609 Dyspepsia R10.13 Hypoxia R09.02 Hypomagnesemia E83.42 CRISTI (acute kidney injury) N17.9 Morbid obesity E66.01 Hypothyroidism E03.9 Dyslipidemia E78.5 Benign essential hypertension I10 Asthma J45.909 DVT prophylaxis Z29.9 Volume overload E87.70
[2021-03-20] MEDS: MoRPHine SULFATE 2 MG/ML CARP IV PRN ×3 (02:11→11:01)
[2021-03-20] MEDS: ACETAMINOPHEN 500 MG TAB PO SCH ×3 (02:12→18:39)
[2021-03-20] MEDS: LEVOTHYROXINE SODIUM 75 MCG TABLET PO SCH (05:27)
[2021-03-20] MEDS: oxyCODONE HCL IR 5 MG TAB (IMMEDIATE RELEASE) PO PRN ×3 (05:29→20:52)
[2021-03-20] MEDS: amLODIPine BESYLATE 5 MG TAB PO SCH (09:38)
[2021-03-20] MEDS: FAMOTIDINE 20 MG TAB PO SCH (09:38)
[2021-03-20] MEDS: LOSARTAN POTASSIUM 50 MG TAB PO SCH (09:39)
[2021-03-20] MEDS: ENOXAPARIN INJ 40 MG/0.4 ML SYR SQ SCH (09:39)
[2021-03-20] MEDS: MAGNESIUM OXIDE 400 MG TAB PO SCH ×2 (09:39→20:54)
[2021-03-20] MEDS: PANTOprazole 40 MG in SYRINGE 0 ML IV SCH ×2 (09:39→20:53)
[2021-03-20 09:46] LABS: BUN Creatinine Ratio 12.5 (10-20); Creatinine Clr Calc Pharmacy 124.3 ml/min; Est GFR (African American) 108.4 ml/min; Est GFR (Non-African American) 93.5 ml/min; Magnesium 2.1 mg/dl (1.8-2.4); Potassium 3.6 mmol/L (3.5-5.1)
--- NOTE | 2021-03-20 11:25 | Surgery Progress Note ---
Date of Service March 20, 2021 Assessment & Plan (1) Adenocarcinoma of colon: Plan: POD 8 right colectomy ? gas pains, will check KUB if XR is ok will consider advancing diet seen with Dr. Campbell Admission and Anticipated Discharge Date Admission Date: March 10, 2021 Subjective bowels moving still liquid, taking more clears, having some LUQ pain, no nausea Physical Exam Gastrointestinal (Abdomen): Inspection/Auscultation: + abdominal surgical incision (no erythema, some serous drainage from drain wound); abdomen not distended Results & Data ([facility]) Vital Signs (Past 12 Hours) Vital Signs Temp Pulse Resp BP Pulse Ox 03/20/21 07:39 36.4 C L 82 16 135/82 93 PG Care Time/CCT Total # of Minutes Spent Total Time Spent with Patient: Total time spent is greater than 50% in coordination of care (as documented) at patient's floor/unit and/or counseling patient: Coding Level of Care Code None Diagnoses Adenocarcinoma of colon C18.9
--- NOTE | 2021-03-20 13:15 | XRay Report ---
KUB HISTORY: Generalized abdominal pain. Postop. COMPARISON: KUB 03/18/2021. FINDINGS: Prior cholecystectomy. There are midline skin marie. The right upper quadrant drain has b een removed in the interval. There are mildly dilated gas-filled loops of large and small bowel seen within the abdomen. These have slightly improved in the interval. No renal calculi. No ureteral calc devorah. No pneumoperitoneum or pneumatosis. IMPRESSION: Mildly dilated gas-filled loops of large and small bowel seen throughout the abdomen which have sligh tly improved. This favors resolving postoperative ileus. A partial small bowel obstruction is conside red less likely but not entirely excluded. ACT 112: Negative or not required by law. Electronically signed by: Mahin Roldan M.D. 03/20/2021 1:14 PM
--- NOTE | 2021-03-20 14:06 | Hospitalist Progress Note ---
Date of Service March 20, 2021 Assessment & Plan (1) Adenocarcinoma of colon: Plan: Verito Norton is a 60-year-old female admitted to the hospital to the hospital for intractable abdominal pain now status post open right hemicolectomy with pathology positive for adenocarcinoma with lymph node metastasis. Adenocarcinoma of the colon Status post right-sided hemicolectomy 03/13 Clears, patient still with significant pain with meals. Diet advancement per surgical team Bowel sounds present, bowel function beginning to return Pain management with oxycodone 5-10 mg every 4 hours as needed as needed, [employer] discontinued Patient will require outpatient follow-up with oncology, patient would prefer to follow-up with [facility] oncology. Dissipate referral to Dr. Dawn. Pathology results in case discussed with patient and her who are in understanding (2) Colonic obstruction: Plan: Status post right hemicolectomy 03/13 Diet advancement per surgical team (3) Volume overload: Plan: Patient with high IV fluid repletion over 10 days, IV fluids stopped Patient markedly improved following Lasix 20 mg IV Continue BMP/mag daily Patient diuresing, make that her additional Lasix dose if indicated. No hypoxia at time of assessment today (4) Dyspepsia: Plan: Improved/resolved with return of bowel function Continue pantoprazole twice daily Pepcid as needed (5) Hypoxia: Plan: Resolved following diuresis, suspect iatrogenic 2/2 excess fluid hydration (6) Hypomagnesemia: Plan: Repleted with IV mag 4 g, continue p.o. magnesium oxide 400 mg twice daily 2/2 poor intake and loose stools Repeat level normalized 03/20 (7) CRISTI (acute kidney injury): Plan: Cr 1.5 at peak now <1 resolved (8) Morbid obesity: Plan: -BMI 45 (9) Hypothyroidism: Plan: -TSH 3.9 in January 2021 -cont synthroid (10) Dyslipidemia: (11) Benign essential hypertension: Plan: - controlled w/ losartan & amlodipine Normotensive today (12) Asthma: Plan: Improved following diuresis (13) DVT prophylaxis: Plan: lovenox daily Admission and Anticipated Discharge Date Admission Date: March 10, 2021 Carlita Humphrey is seen at the bedside this morning. She reports that she is doing worse than previous, and feels her abdominal pain was much worse following breakfast. She feels her pain overall was worse last night from previous as well. She feels like "everything just stops and gives me pain "just above her bellybutton. Denies fever/chills/sweats overnight. Otherwise reports she is nervous about the plan and who to follow-up with down the road for oncology, but is taking a day at a time. Review of Systems Review of Systems: Constitutional: Denies fever, chills, malaise Eyes: Denies vision change ENT: Denies ear pain, sore throat, sinus pain Cardiovascular: Denies Chest pain, chest pressure, palpitations, extremity swelling Respiratory: Denies shortness of breath, cough, sputum production, difficulty breathing Gastrointestinal: Endorses abdominal pain genitourinary: Denies dysuria, urinary frequency Musculoskeletal: Denies acute focal weakness, muscle aches/pain, joint aches/pa in Integumentary:Denies acute rash, lesions, bruising Neurological: Denies headache, numbness, tingling, focal weakness Physical Exam Physical Exam: General: A&Ox3. NAD. Cooperative. HEENT: Atraumatic, normocephalic.Vision and hearing grossly intact. Pulm: Diminished air movement at the bases, with some scattered crackles otherwise grossly clear.. Symmetrical chest rise. No increase work of breathing. No respiratory distress. Cardiac: RRR, -mrg. Radial pulses intact and symmetrical. Abdominal: Midline surgical incision present, marie present, no overlying erythema/warmth/purulence/discharge. Surgical dressing at drain site intact, clean and dry, drain no longer present. Abdomen focally tender above umbilicus, otherwise diffusely mildly tender. No rebound, nonrigid. Results & Data Results & Data ([facility]) Vital Signs (Past 12 Hours) Vital Signs Temp Pulse Resp BP Pulse Ox 03/20/21 07:39 36.4 C L 82 16 135/82 93 PG Care Time/CCT Total # of Minutes Spent Total Time Spent with Patient: Total time spent is greater than 50% in coordination of care (as documented) at patient's floor/unit and/or counseling patient. Total time spent 35 minutes. Coding Level of Care Code 06730 Subseq Hosp Care Lvl 2 Diagnoses Adenocarcinoma of colon C18.9 Colonic obstruction K56.609 Volume overload E87.70 Dyspepsia R10.13 Hypoxia R09.02 Hypomagnesemia E83.42 CRISTI (acute kidney injury) N17.9 Morbid obesity E66.01 Hypothyroidism E03.9 Dyslipidemia E78.5 Benign essential hypertension I10 Asthma J45.909 DVT prophylaxis Z29.9
[2021-03-20] MEDS: ONDANSETRON INJ 2 MG/ML 2 ML VIAL IV PRN (16:11)
[2021-03-20] MEDS: MONTELUKAST SODIUM 10 MG TABLET PO SCH (20:54)
[2021-03-21] MEDS: ACETAMINOPHEN 500 MG TAB PO SCH ×3 (02:27→20:16)
[2021-03-21] MEDS: LEVOTHYROXINE SODIUM 75 MCG TABLET PO SCH (05:31)
[2021-03-21 06:58] LABS: BUN Creatinine Ratio 14.6 (10-20); Calcium 8.2 mg/dl (8.5-10.1); Creatinine Clr Calc Pharmacy 138.1 ml/min; Est GFR (African American) 112.2 ml/min; Est GFR (Non-African American) 96.8 ml/min; Potassium 3.5 mmol/L (3.5-5.1)
[2021-03-21] MEDS: oxyCODONE HCL IR 5 MG TAB (IMMEDIATE RELEASE) PO PRN ×2 (08:17→20:24)
[2021-03-21] MEDS: FAMOTIDINE 20 MG TAB PO SCH (08:18)
[2021-03-21] MEDS: amLODIPine BESYLATE 5 MG TAB PO SCH (08:19)
[2021-03-21] MEDS: LOSARTAN POTASSIUM 50 MG TAB PO SCH (08:19)
[2021-03-21] MEDS: ENOXAPARIN INJ 40 MG/0.4 ML SYR SQ SCH (08:19)
[2021-03-21] MEDS: MAGNESIUM OXIDE 400 MG TAB PO SCH ×2 (08:19→20:17)
[2021-03-21] MEDS: PANTOprazole 40 MG in SYRINGE 0 ML IV SCH ×2 (08:19→20:22)
--- NOTE | 2021-03-21 11:35 | Surgery Progress Note ---
Date of Service March 21, 2021 Assessment & Plan (1) History of colectomy: Plan: POD#9, doing well continue full liquids today per patient request, will advance to low fiber tomorrow if tolerates ambulate, oob Admission and Anticipated Discharge Date Admission Date: March 10, 2021 Subjective POD#9 right hemicolectomy. Feeling better today, passing flatus, having bm's. tolerated full liquids. Physical Exam Constitutional: WD/WN, vitals as above Gastrointestinal (Abdomen): normal bowel sounds, soft, nontender, no hepatosplenomegaly Inspection/Auscultation: + abdominal surgical incision (no infection) Results & Data ([facility]) Vital Signs (Past 12 Hours) Vital Signs Temp Pulse Resp BP Pulse Ox 03/21/21 07:13 36.9 C 76 16 152/83 H 92 03/20/21 23:40 37.1 C 81 16 132/81 95 PG Care Time/CCT Total # of Minutes Spent Total Time Spent with Patient: Total time spent is greater than 50% in coordination of care (as documented) at patient's floor/unit and/or counseling patient: Coding Level of Care Code None Diagnoses History of colectomy Z90.49
--- NOTE | 2021-03-21 14:11 | Hospitalist Progress Note ---
Date of Service March 21, 2021 Assessment & Plan (1) Adenocarcinoma of colon: Plan: Verito Norton is a 60-year-old female admitted to the hospital to the hospital for intractable abdominal pain now status post open right hemicolectomy with pathology positive for adenocarcinoma with lymph node metastasis. Adenocarcinoma of the colon Status post right-sided hemicolectomy 03/13 Diet advanced to liquids, patient doing well and clinically greatly improved from yesterday. Patient plans to continue slowly advancing diet, possibly to low fiber tomorrow if doing well per her discussion with surgical team this morning. Bowel sounds present, bowel function beginning to return. Patient with flatus and liquid bowel movements Pain management with oxycodone 5-10 mg every 4 hours as needed Patient will require outpatient follow-up with oncology, patient would prefer to follow-up with [facility] oncology. Anticipate outpatient referral to Dr. Dawn. Pathology results in case have been discussed with patient and her who are in understanding Surgical site appears well-healing without signs of infection (2) Colonic obstruction: Plan: Status post right hemicolectomy 8/6 Diet advancement per surgical team (3) Volume overload: Plan: Patient with high IV fluid repletion over 10 days, IV fluids stopped Patient markedly improved following Lasix 20 mg IV Continue BMP/mag daily Patient diuresing, make that her additional Lasix dose if indicated. No hypoxia at time of assessment today (4) Dyspepsia: Plan: Improved/resolved with return of bowel function Continue pantoprazole twice daily Pepcid as needed (5) Hypoxia: Plan: Resolved following diuresis, suspect iatrogenic 2/2 excess fluid hydration (6) Hypomagnesemia: Plan: Repleted with IV mag 4 g, continue p.o. magnesium oxide 400 mg twice daily 2/2 poor intake and loose stools Repeat level normalized 03/20 (7) CRISTI (acute kidney injury): Plan: Cr 1.5 at peak now <1 resolved (8) Morbid obesity: Plan: -BMI 45 (9) Hypothyroidism: Plan: -TSH 3.9 in January 2021 -cont synthroid (10) Dyslipidemia: (11) Benign essential hypertension: Plan: - controlled w/ losartan & amlodipine Normotensive today (12) Asthma: Plan: Improved following diuresis (13) DVT prophylaxis: Plan: lovenox daily Admission and Anticipated Discharge Date Admission Date: March 10, 2021 Carlita Sellers is seen at the bedside this morning. She reports she feels much better than yesterday. She reports she was able to tolerate a full liquid breakfast without any pain. She has started to pass flatus today, continues to have 45 liquid bowel movements daily. She reports "just a little "/10 abdominal pain at time of assessment, and expresses that she is pleasedto feelso much better from yesterday. She discussed slow diet advancement with her surgical team, wants to take today slow but may consider a low fiber diet tomorrow if doing well denies fever, chills, sweats. Denies cough or difficulty breathing. Denies chest pain reports she believes her abdominal wound is doing well, dressing was recently changed from her drain site which was leaking some fluid at the time but which she thinks has remained well dressed since.. Denies any discharge or pain at her surgical site. Review of Systems Review of Systems: Denies fever, chills, sweats, chest pain, palpitations, difficulty breathing, cough, shortness of breath, orthopnea, numbness/tingling, confusion, presyncope/syncope, nausea/vomiting, dysuria, joint pain, pelvic pain today. Physical Exam Physical Exam: General: A&Ox3. NAD. Cooperative. HEENT: Atraumatic, normocephalic. Pulm: CTAB A&P. -wheezes, -rales, -rhonchi. Symmetrical chest rise. No increase work of breathing. No respiratory distress. Cardiac: RRR, -mrg. Radial pulses intact and symmetrical. Abdominal: Dressing covering surgical drain site, C/D/I. Minimally tender to palpation. Midline abdominal surgical incision well-healing, no overlying erythema/warmth/discharge. Mild tenderness to palpation left of umbilicus. No rebound tenderness, abdomen soft, bowel sounds diminished but intact. Results & Data Results & Data ([facility]) Vital Signs (Past 12 Hours) Vital Signs Temp Pulse Resp BP Pulse Ox 03/21/21 07:13 36.9 C 76 16 152/83 H 92 PG Care Time/CCT Total # of Minutes Spent Total Time Spent with Patient: Total time spent is greater than 50% in coordination of care (as documented) at patient's floor/unit and/or counseling patient: Coding Level of Care Code 82784 Subseq Hosp Care Lvl 2 Diagnoses Adenocarcinoma of colon C18.9 Colonic obstruction K56.609 Volume overload E87.70 Dyspepsia R10.13 Hypoxia R09.02 Hypomagnesemia E83.42 CRISTI (acute kidney injury) N17.9 Morbid obesity E66.01 Hypothyroidism E03.9 Dyslipidemia E78.5 Benign essential hypertension I10 Asthma J45.909 DVT prophylaxis Z29.9
[2021-03-21] MEDS: MoRPHine SULFATE 2 MG/ML CARP IV PRN (15:36)
[2021-03-21] MEDS: ONDANSETRON INJ 2 MG/ML 2 ML VIAL IV PRN (15:36)
[2021-03-21] MEDS ORDERED: ONDANSETRON 4 MG OD TAB PO PRN (19:00)
[2021-03-21] MEDS: MONTELUKAST SODIUM 10 MG TABLET PO SCH (20:16)
[2021-03-21] MEDS: PANTOprazole 40 MG TAB PO SCH (20:22)
[2021-03-22] MEDS: ACETAMINOPHEN 500 MG TAB PO SCH ×3 (03:02→20:15)
[2021-03-22] MEDS: oxyCODONE HCL IR 5 MG TAB (IMMEDIATE RELEASE) PO PRN ×2 (03:05→20:16)
[2021-03-22] MEDS: LEVOTHYROXINE SODIUM 75 MCG TABLET PO SCH (06:28)
--- NOTE | 2021-03-22 07:13 | Hospitalist Progress Note ---
Date of Service March 22, 2021 Assessment & Plan (1) Adenocarcinoma of colon: Plan: Verito Norton is a 60-year-old female admitted to the hospital to the hospital for intractable abdominal pain now status post open right hemicolectomy with pathology positive for adenocarcinoma with lymph node metastasis. Adenocarcinoma of the colon Status post right-sided hemicolectomy 8/ Tolerating diet advancement well at this time, advance to low fiber. Continue to follow clinically Bowel sounds present, bowel function continues to improve patient with flatus and liquid bowel movements Pain management with oxycodone 5-10 mg every 4 hours as needed Patient will require outpatient follow-up with oncology, patient would prefer to follow-up with [facility] oncology. Anticipate outpatient referral to Dr. Dawn. Pathology results in case have been discussed with patient and her who are in understanding Surgical site appears well-healing without signs of infection (2) Colonic obstruction: Plan: Status post right hemicolectomy 8/6 Diet advancement per surgical team (3) Volume overload: Plan: Patient with high IV fluid repletion over 10 days, IV fluids stopped Patient markedly improved following Lasix 20 mg IV Continue BMP/mag daily no hypoxia or signs of fluid overload on assessment today (4) Dyspepsia: Plan: Improved/resolved with return of bowel function Continue pantoprazole twice daily Pepcid as needed (5) Hypoxia: Plan: Resolved following diuresis, suspect iatrogenic 2/2 excess fluid hydration (6) Hypomagnesemia: Plan: Repleted with IV mag 4 g, continue p.o. magnesium oxide 400 mg twice daily 2/2 poor intake and loose stools Repeat level normalized 03/20, repeat magnesium level slightly low Patient on magnesium at home, reports any higher doses gave her severe diarrhea. Suspect benefit of increased oral repletion dose outweighed by losses due to diarrhea, will give additional IV dose and continue current twice daily dosing (7) CRISTI (acute kidney injury): Plan: Cr 1.5 at peak now <1 resolved (8) Morbid obesity: Plan: -BMI 45 (9) Hypothyroidism: Plan: -TSH 3.9 in January 2021 -cont synthroid (10) Dyslipidemia: (11) Benign essential hypertension: Plan: - controlled w/ losartan & amlodipine Normotensive today (12) Asthma: Plan: Improved following diuresis (13) DVT prophylaxis: Plan: lovenox daily Admission and Anticipated Discharge Date Admission Date: March 10, 2021 Subjective Verito is seen at the bedside this morning. She reports she continues to feel improved, and she thinks she is progressing well. She reports she was seen by surgery this morning, plan is to continue to slowly advance her diet as tolerated and follow her clinically and she is comfortable with this plan. No nausea/vomiting today, continues to pass flatus and loose/liquid bowel movements, feels some "gas bubbles move". Endorses some unchanged tenderness to palpation around her surgical incision but none at rest and otherwise denies abdominal pain. Review of Systems Review of Systems: Constitutional: Denies fever, chills, malaise Eyes: Denies vision change ENT: Denies ear pain, sore throat, sinus pain Cardiovascular: Denies Chest pain, chest pressure, palpitations, extremity swelling Respiratory: Denies shortness of breath, cough, sputum production, difficulty breathing Gastrointestinal: See subjective Genitourinary: Denies dysuria, urinary frequency Musculoskeletal: Denies acute focal weakness, Celexa Integumentary:Denies acute rash, lesions, bruising Neurological: Denies headache, numbness, tingling Physical Exam Physical Exam: General: A&Ox3. NAD. Cooperative. HEENT: Atraumatic, normocephalic. Pulm: CTAB A&P. -wheezes, -rales, -rhonchi. Symmetrical chest rise. No increase work of breathing. No respiratory distress. Cardiac: RRR, -mrg. Radial pulses intact and symmetrical. Abdominal: Dressing covering surgical drain site, C/D/I. Midline abdominal surgical incision well-healing, no overlying erythema/warmth/discharge. No tenderness at umbilicus on palpation today. No rebound tenderness, abdomen soft, bowel sounds intact. Results & Data Results & Data ([facility]) Vital Signs (Past 12 Hours) Vital Signs Temp Pulse Resp BP Pulse Ox 03/21/21 23:26 36.8 C 74 16 130/85 97 PG Care Time/CCT Total # of Minutes Spent Total Time Spent with Patient: Total time spent is greater than 50% in coordination of care (as documented) at patient's floor/unit and/or counseling patient: Coding Level of Care Code 28418 Subseq Hosp Care Lvl 3 Diagnoses Adenocarcinoma of colon C18.9 Colonic obstruction K56.609 Volume overload E87.70 Dyspepsia R10.13 Hypoxia R09.02 Hypomagnesemia E83.42 CRISTI (acute kidney injury) N17.9 Morbid obesity E66.01 Hypothyroidism E03.9 Dyslipidemia E78.5 Benign essential hypertension I10 Asthma J45.909 DVT prophylaxis Z29.9
[2021-03-22 07:52] LABS: BUN Creatinine Ratio 15.2 (10-20); Calcium 8.4 mg/dl (8.5-10.1); Creatinine Clr Calc Pharmacy 129.8 ml/min; Est GFR (Non-African American) 94.9 ml/min; Magnesium 1.7 mg/dl (1.8-2.4); Potassium 3.4 mmol/L (3.5-5.1)
--- NOTE | 2021-03-22 08:00 | Surgery Progress Note ---
Date of Service March 22, 2021 Assessment & Plan (1) Colonic mass: Plan: POD 10 advance to low fiber diet difficulty with IV access, can stop IV meds Admission and Anticipated Discharge Date Admission Date: March 10, 2021 Supervising Physician Co-Signing Physician Notes Pnt S&E, agree with above. POD#10 right hemicolectomy, multiple loose bm's, tolerating fulls. advance to low fiber diet Subjective diarrhea after meals, increasing flatus Physical Exam Gastrointestinal (Abdomen): Inspection/Auscultation: abdomen not distended Percussion/Palpation: abdomen soft Results & Data ([facility]) Vital Signs (Past 12 Hours) Vital Signs Temp Pulse Resp BP Pulse Ox 03/22/21 07:41 36.7 C 77 16 144/88 H 94 03/21/21 23:26 36.8 C 74 16 130/85 97 PG Care Time/CCT Total # of Minutes Spent Total Time Spent with Patient: Total time spent is greater than 50% in coordination of care (as documented) at patient's floor/unit and/or counseling patient: Coding Level of Care Code None Diagnoses Colonic mass K63.89
[2021-03-22] MEDS: POTASSIUM CHLORIDE CRTAB 20 MEQ TABCR PO SCH ×3 (08:46→17:13)
[2021-03-22] MEDS: PANTOprazole 40 MG TAB PO SCH ×2 (08:46→20:14)
[2021-03-22] MEDS: LOSARTAN POTASSIUM 50 MG TAB PO SCH (08:48)
[2021-03-22] MEDS: FAMOTIDINE 20 MG TAB PO SCH (08:49)
[2021-03-22] MEDS: amLODIPine BESYLATE 5 MG TAB PO SCH (08:49)
[2021-03-22] MEDS: ENOXAPARIN INJ 40 MG/0.4 ML SYR SQ SCH (08:49)
[2021-03-22] MEDS: MAGNESIUM OXIDE 400 MG TAB PO SCH ×2 (10:10→20:14)
[2021-03-22] MEDS: MONTELUKAST SODIUM 10 MG TABLET PO SCH (20:14)
[2021-03-22] MEDS ORDERED: MAGNESIUM SULFATE / D5W 1 GM/100 ML BAG IV ONE (21:15)
[2021-03-23] MEDS: ACETAMINOPHEN 500 MG TAB PO SCH ×2 (03:33→11:27)
[2021-03-23] MEDS: LEVOTHYROXINE SODIUM 75 MCG TABLET PO SCH (06:35)
[2021-03-23 08:00] LABS: BUN Creatinine Ratio 14.5 (10-20); Calcium 8.2 mg/dl (8.5-10.1); Creatinine Clr Calc Pharmacy 142.6 ml/min; Est GFR (African American) 113.4 ml/min; Est GFR (Non-African American) 97.8 ml/min; Magnesium 1.5 mg/dl (1.8-2.4); Potassium 3.6 mmol/L (3.5-5.1)
[2021-03-23] MEDS: PANTOprazole 40 MG TAB PO SCH (08:49)
[2021-03-23] MEDS: LOSARTAN POTASSIUM 50 MG TAB PO SCH (08:49)
[2021-03-23] MEDS: MAGNESIUM OXIDE 400 MG TAB PO SCH (08:49)
[2021-03-23] MEDS: amLODIPine BESYLATE 5 MG TAB PO SCH (08:49)
[2021-03-23] MEDS: FAMOTIDINE 20 MG TAB PO SCH (08:49)
[2021-03-23] MEDS: ENOXAPARIN INJ 40 MG/0.4 ML SYR SQ SCH (08:50)
--- NOTE | 2021-03-23 09:49 | Surgery Progress Note ---
Date of Service March 23, 2021 Assessment & Plan (1) Colonic mass: Plan: POD 11 tolerating diet improved over the weekend ok for discharge, will see in clinic Tuesday Admission and Anticipated Discharge Date Admission Date: March 10, 2021 Supervising Physician Co-Signing Physician Notes Pnt S&E, agree with above. POD#11 right hemicolectomy, feeling better, solid bm's, tolerating fulls low fiber diet. d/c to home, f/u with [place] end of week. Subjective tolerating low fiber diet, diarrhea subsided Physical Exam Gastrointestinal (Abdomen): Inspection/Auscultation: + abdominal surgical incision (minimal staple erythema lower few marie); abdomen not distended Percussion/Palpation: abdomen soft Results & Data ([facility]) Vital Signs (Past 12 Hours) Vital Signs Temp Pulse Resp BP BP Pulse Ox 03/23/21 07:31 36.8 C 66 18 149/87 H 96 03/23/21 00:11 36.8 C 83 18 147/89 H 96 PG Care Time/CCT Total # of Minutes Spent Total Time Spent with Patient: Total time spent is greater than 50% in coordination of care (as documented) at patient's floor/unit and/or counseling patient: Coding Level of Care Code None Diagnoses Colonic mass K63.89
[2021-03-23] MEDS: oxyCODONE HCL IR 5 MG TAB (IMMEDIATE RELEASE) PO PRN (11:27)
--- NOTE | 2021-03-23 11:40 | Discharge Summary ---
Date of Service March 23, 2021 Admission HPI Per Admitting Provider Mrs. Norton is a 60-year-old white female with a past medical history of IBS, well-controlled asthma, HTN, hyperlipidemia, and hypothyroidism. She presented to the ED today complaining of left lower quadrant pain X 1 month. Was in her usual state of health when she saw her PCP in January for routine well visit. Had lab work and was started on fish oil for mildly elevated cholesterol levels. Immediately following, she developed abdominal discomfort that was constant. Was described as a dull ache and rated as a 4/10. She has IBS with predominant diarrhea but was having increasing loose stools at that time. Thought symptoms were related to the fish oil so she stopped. Despite this, her abdominal pain was progressive. Remained constant but now a 10/10. Had associated nausea without emesis. Symptoms worse with eating thus appetite has been poor. Having frequent and only loose stools. Given progression in abdominal pain, presented to the ED for further evaluation and care. Lab data reveals mild hypokalemia (3.4) with CRISTI (1.5 with a baseline of 1.1). Imaging done: KUB with nonobstructing pattern. Patient will be hospitalized for further evaluation and care. Principal Diagnosis Colon adenocarcinoma Discharge Exam Constitutional WD/WN, vitals as above Respiratory normal respiratory effort, lungs clear to auscultation Cardiovascular RRR, no murmur, no edema Gastrointestinal (Abdomen) Percussion/Palpation: abdomen soft; abdomen nontender Discharge Data Allergies Allergy/AdvReac Type Severity Reaction Status Date / Time house dust mite Allergy Mild sneezy, Verified 03/30/21 09:17 watery eyes oak Allergy Mild sneezy, Verified 03/30/21 09:17 watery eyes No Known Drug Allergies AdvReac Unknown Verified 03/30/21 09:17 Consultations 03/10/21 14:18 ED Decision to Admit Stat 03/10/21 20:46 Consult Gastroenterology Routine Consult General Surgery Routine 03/11/21 16:14 Consult General Surgery Routine Procedures Performed Operation Date: 03/12/21 12:55 Actual Procedures p Colonoscopy Biopsy Cytology - Pipo Velarde DO Operation Date: 03/13/21 09:55 Actual Procedures p Open Extended Right Hemicolectomy(Right) - Yayo Campbell DO Ordered Studies 03/10/21 15:51 CT abd pelvis oral and IV con Stat IMPRESSION: 1. No change in moderate distention of the cecum and ascending colon with probable transition point within the hepatic flexure with wall thickening of the hepatic flexure of the colon and the proximal transverse colon. The findings are worrisome for underlying colonic lesion which may result in a partial colonic obstruction. GI consultation for consideration for colonoscopy is recommended. 2. No change in extensive mesenteric, retroperitoneal and retrocrural lymphadenopathy. This is consistent with a neoplastic process and likely reflects yamel spread of malignancy. Lymphoma is within the differential but considered less likely. 3. Trace ascites. Abdominal infiltration, similar to prior exam. Hospital Course (1) Adenocarcinoma of colon: (2) Colonic obstruction: (3) Volume overload: (4) Dyspepsia: (5) Hypoxia: Resolved following diuresis, suspect iatrogenic 2/2 excess fluid hydration (6) Hypomagnesemia: (7) CRISTI (acute kidney injury): (8) Morbid obesity: -BMI 45 (9) Hypothyroidism: (10) Dyslipidemia: (11) Benign essential hypertension: (12) Asthma: Verito Norton is a 60 year old female admitted to [facility] from March 10 to 2020 due to intractable abdominal pain. She was diagnosed with colon adenocarcinoma and underwent right hemicolectomy on March [address] Campbell. Post operative course was significant for volume overload with IV fluids which responded to IV lfuids. She is now tolerating a low fiber diet and medically stable for discharge. Surgical marie in place will be removed at her follow up appointment. She should continue on a low fiber diet until follow up. Total Time Total Time Spent Total Time Spent (In Minutes): 35 Discharge Plan Discharge Items Patient Disposition: Home - Self-Care Reason For Visit: INTRACTABLE ABD PAIN Discharge Diagnosis: Colon adenocarcinoma Condition on Discharge: Good Activity Comment: light activity. Keep LUE elevated as much as possible until healed Lifting: No more than 10 pounds Bathing Comment: may shower; no soaking in tubs/pools Exercise/Sports: Wait until after follow-up appointment Driving/Machine Use: no driving while taking narcotics for pain Non-emergency contact: Primary Care Provider Call non-emergency contact if: you have any medication questions, your symptoms worsen, your pain is not controlled, your pain is worsening, your pain is concerning for you, you have a fever, your temperature is above 101.5, your wound has increased redness, your wound has increased drainage and your wound pain has increased Follow-up/Referrals: Traci Patton DO [Primary Care Provider] - 03/30/21 9:20 am (Please arrive at office by 0900 am) Lefty Dawn DO [Physician] - (Colon cancer follow up) Yayo Campbell DO [Surgeon] - 03/27/21 10:00 am (You have an appt at 10:00 03/27/[address] Campbell and have your marie removed at the [place] office) Diet: Low Fiber Addtl Attending Provider Instructions: You were admitted to [facility] from March 10 to 2020 due to intractable abdominal pain. You were diagnosed with colon adenocarcinoma and underwent right hemicolectomy on March [address] Campbell. You are now tolerating a low fiber diet and medically stable for discharge. You have surgical marie in place that will be removed at one of your follow up appointments. Please continue on a low fiber diet until your follow up appointment. Pending Studies at Discharge: No Stand-Alone Forms: My [facility], Opioid Pain Management, Smoking Cessation Medications and DC Order Prescriptions: Continued albuterol sulfate 2.5 mg /3 mL (0.083 %) solution for nebulization 2.5 mg inhalation Q4H PRN (Reason: shortness of breath or wheezing) Qty: 1 RF: 5 ipratropium bromide 0.02 % solution 0.5 mg inhalation Q4H PRN (Reason: shortness of breath or wheezing) Qty: 360 RF: 1 diphenoxylate-atropine 2.5-0.025 mg tablet 1 tab PO QID PRN (Reason: diarrhea) Qty: 360 RF: 3 ipratropium bromide 21 mcg (0.03 %) spray,non-aerosol 2 spray intranasal BID Qty: 90 RF: 3 albuterol sulfate 90 mcg/actuation HFA aerosol inhaler 2 puffs inhalation Q4H PRN (Reason: Shortness Of Breath) Qty: 3 RF: 0 cholecalciferol (vitamin D3) 2,000 unit capsule 2,000 units PO QAM Qty: 90 RF: 0 magnesium oxide 500 mg capsule 500 mg PO BID RF: 0 amlodipine 5 mg tablet 5 mg PO QAM RF: 0 omeprazole 20 mg capsule,delayed release(DR/EC) 20 mg PO QAM RF: 0 montelukast 10 mg tablet 10 mg PO QPM RF: 0 losartan 100 mg tablet 100 mg PO QAM RF: 0 fluticasone propionate 50 mcg/actuation spray,suspension 2 sprays intranasal BID RF: 0 multivitamin Tablet 1 tab PO QAM RF: 0 Discontinued aspirin 81 mg Tablet,Delayed Release (Dr/Ec) 81 mg PO DAILY RF: 0 No Action levothyroxine 75 mcg tablet 75 mcg PO QAM Qty: 90 RF: 1 ondansetron 8 mg tablet,disintegrating 8 mg PO Q8H PRN (Reason: nausea and vomiting) Qty: 30 RF: 0 Discharge Orders: Discharge Order (Routine); Ordered 03/23/21 Ordered By: Josh Casanova/Other Patient Handouts: Low-Fiber Diet, Preventing Deep Vein Thrombosis Admission Data Admit Date/Time: 03/10/21 15:51 Attending Provider: Josh Kirby Admit Provider: Jonah Virk Primary Care Provider: Traci Patton Other Providers: Jonah Virk ; Feroz Drew ; Sonia Roman ; Yayo Campbell ; Josh Velasquez Other Interventions: Discharge Summary Assessment (RN) Last Done: 03/23/21 11:37 Coding Level of Care Code D/C DAY MANAGEMENT >30 MINS Diagnoses Adenocarcinoma of colon C18.9 Colonic obstruction K56.609 Volume overload E87.70 Dyspepsia R10.13 Hypoxia R09.02 Hypomagnesemia E83.42 CRISTI (acute kidney injury) N17.9 Morbid obesity E66.01 Hypothyroidism E03.9 Dyslipidemia E78.5 Benign essential hypertension I10 Asthma J45.909
== END 2021-03-23 13:55 | disposition home or self-care (01) | DRG 330 ==
LOC: ED 11:50 → SUATTDRO 15:51 → 3W 15:51

== ENCOUNTER 2021-04-14 12:20 | Inpatient (IN) ==
[2021-04-14] MEDS ORDERED: SODIUM CHLORIDE 0.9% 500 ML IV STA (13:09)
--- NOTE | 2021-04-14 13:37 | Emergency Department Note ---
History of Present Illness General Chief complaint: Respiratory Problems Stated complaint: LOW OXYGEN Time Seen by Provider: 04/14/21 13:00 History of Present Illness 60-year-old female presents to the ED with a chief complaint of generally not feeling well. The patient had a bowel resection on the fifth of last month, 1 month ago. This was done by Dr. Campbell. She followed up in his office today and was found to be hypoxic with oxygen saturations of 87%. She was sent here for evaluation. She reports cold sweats, some shortness of breath and decreased appetite. She also reports occasional nausea. She denies any chest pains or headaches. She denies fevers. She has had a slight cough. No runny nose or sore throat. Denies any pain or swelling in her legs. She does have some abdominal discomfort she feels is related to her recent surgery. No additional complaints at this time. Exertion makes it worse. Home Medications Medication Instructions Recorded Confirmed Type albuterol sulfate 90 mcg/actuation 2 puffs INHALATION Q4H PRN #3 gm 03/15/19 04/14/21 History aerosol inhaler albuterol sulfate 2.5 mg INHALATION Q4H PRN #1 box 04/27/19 04/14/21 Rx cholecalciferol (vitamin D3) 50 2,000 units PO QAM #90 cap 06/13/19 04/14/21 History mcg (2,000 unit) capsule magnesium oxide 500 mg capsule 500 mg PO BID cap 06/13/19 04/14/21 History ipratropium bromide 0.02 % 0.5 mg INHALATION Q4H PRN #360 ml 10/09/20 04/14/21 Rx solution for inhalation diphenoxylate-atropine 2.5 1 tab PO QID PRN #360 tab 01/19/21 04/14/21 Rx mg-0.025 mg tablet ipratropium bromide 21 mcg (0.03 2 spray INTRANASAL BID #90 ml 01/19/21 04/14/21 Rx %) nasal spray amlodipine 5 mg tablet 5 mg PO QAM 03/10/21 04/14/21 History fluticasone propionate 50 2 sprays INTRANASAL BID 03/10/21 04/14/21 History mcg/actuation nasal spray,suspension losartan 100 mg tablet 100 mg PO QAM 03/10/21 04/14/21 History montelukast 10 mg tablet 10 mg PO QPM 03/10/21 04/14/21 History multivitamin 1 tab PO QAM 03/10/21 04/14/21 History omeprazole 20 mg capsule,delayed 20 mg PO QAM 03/10/21 04/14/21 History release levothyroxine 75 mcg tablet 75 mcg PO QAM #90 tab 03/30/21 04/14/21 Rx ondansetron 8 mg disintegrating 8 mg PO Q8H PRN #30 tab 03/30/21 04/14/21 Rx tablet oxycodone 5 mg tablet 5 mg PO Q8H PRN #30 tab 04/08/21 04/14/21 Rx Allergies Allergy/AdvReac Type Severity Reaction Status Date / Time house dust mite Allergy Mild sneezy, Verified 04/14/21 11:37 watery eyes oak Allergy Mild sneezy, Verified 04/14/21 11:37 watery eyes No Known Drug Allergies AdvReac Unknown Verified 04/14/21 11:37 Past Med/Surg History Medical History Adenocarcinoma of colon Allergic rhinitis Asthma inhalers daily/prn and nebulizer prn Benign essential hypertension Chronic reflux esophagitis Chronic sinusitis Diverticulosis Dyslipidemia Elevated IgE level History of kidney stones History of pancreatitis "quite a few years ago" Hypothyroidism Irritable bowel syndrome Morbid obesity with BMI of 40.0-44.9, adult Osteoarthrosis Surgical History H/O: hysterectomy Total abdominal with removal of both ovaries History of ankle surgery left achilles tendon--hardware in place History of section x2 History of colectomy (03/13/21) open R hemicolectomy History of tooth extraction all teeth S/P appendectomy S/P cholecystectomy (01/2013) S/P sinus surgery January 2013 Family History Mother , age 72 Breast cancer, Onset Age: 60 Grandfather (Paternal) Diabetes Myocardial infarction Father Stroke Other No family history of adverse response to anesthesia Denies family history of Ovarian cancer Prostate cancer Lung cancer Colorectal cancer Social History (Reviewed 04/14/21 @ 13:35 by BRISSA Mcfadden Smoking Status: Former smoker packs per day: 0.25; Years Smoked: 6; Number of Years Since Quit: 33; Second Hand Exposure: No; Hx Alcohol Use: No Hx Substance Use: No Preferred Language: Armenian Communication Ability: Effective Visual Impairment: No Limitations Hearing Ability: Normal Oracle Applications Developer Required: No Beliefs That Will Affect Care: None marital status: Current Living Situation: Spouse current occupational status: employed 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 Feels Safe at Home: Yes Childhood Exposure to Second-Hand Smoke: No Diet Comment: regular caffeine: Yes (coffee) during the past year weight has: remained stable Dental Care, Regularly: Yes Physical Activity Frequency: 3-4 Times per Week Physical Activity Frequency Comment: walking Seatbelt Use: always Sunscreen Use: No Assistive Devices: Glasses Review of Systems A total of 10 systems reviewed and were otherwise negative Physical Exam Vital Signs Vital Signs - 24 hr 04/14/21 12:55 04/14/21 13:04 04/14/21 13:05 Temperature 35.6 C L Temperature Source Temporal Artery Scan Pulse Rate 112 H 105 H Pulse Rate from SpO2 Sensor 106 H Respiratory Rate 24 18 Respiratory Effort / Characteristics Spontaneous Accessory Muscle Use Labored Respiratory Depth Normal Respiratory Pattern Tachypnea Blood Pressure 166/107 H 119/86 Blood Pressure Mean 126 97 Pulse Oximetry 87 L 95 95 Oxygen Delivery Method Room Air Nasal Cannula Nasal Cannula Oxygen Flow Rate 4 4 Sepsis Recent Fever Within 48 Hours No Sepsis New/Unexplained Change in Mental Status No Sepsis Action Taken by Nursing No Action Required 04/14/21 13:10 04/14/21 13:27 04/14/21 13:31 Temperature Temperature Source Pulse Rate 103 H 102 H Pulse Rate from SpO2 Sensor 103 H 100 H Respiratory Rate 27 H 21 Respiratory Effort / Characteristics Non-Labored Spontaneous Respiratory Depth Respiratory Pattern Blood Pressure 111/80 101/73 Blood Pressure Mean 90 82 Pulse Oximetry 96 97 Oxygen Delivery Method Nasal Cannula Nasal Cannula Nasal Cannula Oxygen Flow Rate 4 4 4 Sepsis Recent Fever Within 48 Hours Sepsis New/Unexplained Change in Mental Status Sepsis Action Taken by Nursing 04/14/21 13:45 04/14/21 14:00 04/14/21 14:27 Temperature Temperature Source Pulse Rate 99 H 96 H Pulse Rate from SpO2 Sensor 99 H 96 H 92 H Respiratory Rate 23 23 Respiratory Effort / Characteristics Respiratory Depth Respiratory Pattern Blood Pressure 107/86 118/75 Blood Pressure Mean 93 89 Pulse Oximetry 96 96 100 Oxygen Delivery Method Nasal Cannula Nasal Cannula Nasal Cannula Oxygen Flow Rate 4 4 4 Sepsis Recent Fever Within 48 Hours Sepsis New/Unexplained Change in Mental Status Sepsis Action Taken by Nursing CONSTITUTIONAL/VITAL SIGNS: Reviewed / noted above. GENERAL: Non-toxic in appearance. INTEGUMENTARY: Warm, dry, and [place]. HEAD: Normocephalic. EYES: without scleral icterus or trauma. ENT/OROPHARYNX: clear and moist. LYMPHADENOPATHY/NECK: Is supple without lymphadenopathy or meningismus. RESPIRATORY: Clear to auscultation bilaterally. No increased work of breathing. CARDIOVASCULAR: Tachycardic rate and regular rhythm. GI/ABDOMEN: Soft and nontender. No organomegaly or pulsatile mass. EXTREMITIES: Warm and well perfused. BACK: No CVA tenderness. NEUROLOGICAL: Intact without focal deficits. PSYCHIATRIC: normal affect. MUSCULOSKELETAL: Normally developed with good muscle tone. TRIAGE NURSING DOCUMENTATION REVIEWED. Course Administered Medications Discontinued Medications Sodium Chloride (Nss) 500 mls @ 999 mls/hr IV .Q31M STA Stop: 04/14/21 13:39 Last Admin: 04/14/21 13:34 Dose: 999 mls/hr Documented by: [id number] Ioversol (Optiray 320 125ml) 120 ml IV ONCE ONE Stop: 04/14/21 14:16 Last Admin: 04/14/21 14:16 Dose: 120 ml Documented by: [id number] Critical Care Time Critical Care Time: Yes Total Critical Care Time: 30 I have personally spent 30 minutes of critical care time in the direct management of this patient. This includes bedside care, interpretation of diagnostic studies, and testing, discussion with consultants, patient, and family members, and other required patient management activities. This 30 minutes is in excess of all separately billable procedures. Medical Decision Making Differential Diagnosis The differential was considered includes acute myocardial infarction, acute coronary syndrome, myocarditis, pericarditis, pericardial effusions /tamponad, esophageal perforation, pulmonary embolism, pneumonia, pneumothorax, cardiomyopathy, congestive heart, anemia , COPD/asthma exacerbation. Medical Records Attestation: I reviewed the patient's medical records. Home Medications Current Medication List: was personally reviewed by me Laboratory Data Attestation: I reviewed the patient's lab results. Result diagrams: 04/14/21 13:11 04/14/21 13:11 Lab Results 04/14/21 04/14/2121 Range/Units 13:11 13:11 13:11 WBC 9.95 (4.8-10.8) K/uL RBC 5.07 (4.2-5.4) M/uL Hgb 14.5 (12.0-16.0) g/dL Hct 44.7 (37-47) % MCV 88.2 (80-100) fL MCH 28.6 (25-34) pg MCHC 32.4 (32-36) g/dL RDW Std Deviation 48.5 H (36.4-46.3) fL RDW Coeff of Mamadou 15.2 H (11.5-14.5) % Plt Count 241 (130-400) K/uL MPV 10.7 H (7.4-10.4) fL Immature Gran % (Auto) 1.8 % Neut % (Auto) 80.5 % Lymph % (Auto) 10.9 % [place] % (Auto) 5.8 % Eos % (Auto) 0.8 % Baso % (Auto) 0.2 % Neut # (Auto) 8.01 H (1.4-6.5) K/uL Lymph # (Auto) 1.08 L (1.2-3.4) K/uL [place] # (Auto) 0.58 (0.11-0.59) K/uL Eos # (Auto) 0.08 (0-0.5) K/uL Baso # (Auto) 0.02 (0-0.2) K/uL Immature Gran # (Auto) 0.18 H (0.00-0.02) K/uL PT 12.6 H (9.0-12.0) Seconds INR 1.3 H (0.9-1.1) APTT 23.1 (21.0-31.0) Seconds PTT Ratio 0.9 D-Dimer 21302 H* (0-500) ug/L FEU Sodium 136 (136-145) mmol/L Potassium 4.0 (3.5-5.1) mmol/L Chloride 100 (98-107) mmol/L Carbon Dioxide 22 (21-32) mmol/L Anion Gap 14.0 H (3-11) BUN 38 H (7-18) mg/dl Creatinine 2.04 H (0.6-1.2) mg/dl Est Cr Clr Drug Dosing 41.0 ml/min Est GFR ( Amer) 29.7 ml/min Est GFR (Non-Af Amer) 25.7 ml/min BUN/Creatinine Ratio 18.7 (10-20) Glucose 123 H (70-99) mg/dl Calcium 9.2 (8.5-10.1) mg/dl Magnesium 1.9 (1.8-2.4) mg/dl Total Bilirubin 0.6 (0.2-1) mg/dl AST 78 H (15-37) U/L ALT 13 (12-78) U/L Alkaline Phosphatase 142 H (45-117) U/L Troponin I < 0.015 (0-0.045) ng/ml NT-Pro-B Natriuret Pep 727 (0-900) pg/ml Total Protein 6.9 (6.4-8.2) gm/dl Albumin 2.6 L (3.4-5.0) gm/dl Globulin 4.3 H (2.5-4.0) gm/dl Albumin/Globulin Ratio 0.6 L (0.9-2) Imaging Data Radiologist's Impression: Abdomen/Pelvis CT 04/14/21 13:09 CT SCAN OF THE ABDOMEN AND PELVIS WITH IV CONTRAST CLINICAL HISTORY: Generalized abdominal pain. Reported history of recent bowel resection. COMPARISON STUDY: Abdominal CT dated 03/10/2021 TECHNIQUE: Following the IV administration of 120 cc of Optiray 320, CT scan of the abdomen and pelvis is performed from the lung bases to the proximal femora. Images are reviewed in the axial, sagittal, and coronal planes. IV contrast was administered without complication. A dose lowering technique was utilized adhering to the principles of ALARA. FINDINGS: Lung bases: The heart is normal in size and without pericardial effusion. The coronary arteries are densely calcified. Enlarged hilar nodes are partially visualized and measure up to 2 cm in short axis. Irregular airspace opacities at both lung bases could represent scar/atelectasis versus a mild infectious/inflammatory pneumonitis. See report of chest CT performed concurrently for detailed intrathoracic findings. Liver: The contrast-enhanced liver is normal in size, contour, and attenuation. There is no intrahepatic biliary ductal dilatation. The hepatic veins and portal veins are patent. Adenopathy in the hepatic hilum causes mild mass effect on the main portal vein. Gallbladder: Surgically absent noting clips in the gallbladder fossa. Spleen: There is a 2.5 cm perfusion defect in the anterior spleen seen on image #108. This is consistent with a small splenic infarct. The spleen is normal in size and otherwise normal in attenuation. The splenic vein is patent. Pancreas: The pancreas is moderately atrophic and grossly unremarkable. Adrenal glands: Unremarkable. Kidneys: The contrast enhanced kidneys are normal in size and without hydronephrosis. The kidneys enhance symmetrically. Adenopathy significantly narrows the left renal vein as seen on image #199. Abdominal vasculature: The abdominal aorta is normal in course and caliber noting moderate atherosclerotic calcification. The IVC is effaced by retroperitoneal lymphadenopathy. Bowel: There is postoperative change from right hemicolectomy with ileocolic anastomosis. No bowel obstruction is identified. There is mild colonic diverticulosis without CT evidence of acute diverticulitis. Peritoneum: There is a small volume of perihepatic and perisplenic ascites, as well as a small to moderate volume of pelvic ascites. No intraperitoneal free air is identified. A midline surgical scar is noted. Lymphadenopathy: There is bulky upper abdominal lymphadenopathy. A node in the fiona hepatis on image #162 measures 3.9 x 2.6 cm. A large gastrohepatic node on image #170 measures 4.9 x 2.8 cm. A retrocrural node on image #112 measures 2.1 x 1.9 cm. There is bulky retroperitoneal lymphadenopathy. A left periaortic node on image #217 measures 3.1 x 1.9 cm. There is bulky mesenteric lymphadenopathy. A underwriting sales representative mesenteric node on image #253 measures 3.1 x 2.0 cm. No pelvic sidewall or inguinal adenopathy is identified. Several nodes show evidence of partial necrosis. Pelvic viscera: The bladder is decompressed and grossly unremarkable. The uterus is surgically absent. No adnexal lesion is seen. Skeletal structures: The skeletal structures are osteopenic. There is mild lumbosacral spondylosis. No lytic or blastic lesions are seen. IMPRESSION: 1. There is a 2.5 cm perfusion defect in the anterior spleen. This is new from 03/10/2021 and consistent with a splenic infarct. 2. There is postoperative change from right hemicolectomy with ileocolic anastomosis. No bowel obstruction is identified. 3. Small to moderate volume of abdominopelvic ascites. This is new from previous. 4. There is bulky upper abdominal, retroperitoneal, retrocrural, and mesenteric lymphadenopathy. Hilar adenopathy is also partially visualized. This has significantly progressed as compared to 03/10/2021. Several of these nodes show partial necrosis. Correlate with the patient's oncological history. 5. Retroperitoneal lymphadenopathy significant narrows the left renal vein. This also effaces the IVC at the level of the renal veins. 6. Additional findings as above. ACT 112: Negative or not required by law. Electronically signed by: Reinaldo Gerber M.D. 04/14/2021 2:54 PM Chest CTA 04/14/21 13:09 CT angio chest PE protocol CT DOSE: 2447.51 mGy.cm HISTORY: 60 years-old Female with Dyspnea. Acute shortness of breath TECHNIQUE: Multiple CTA images of the chest were obtained after the intravenous administration of 120 ml Optiray. Coronal and sagittal MIPS were obtained from the axial data set and were submitted for review. All measurements were obtained according to NASCET criteria. A dose lowering technique was utilized adhering to the principles of ALARA. COMPARISON: CT abdomen and pelvis of same day, chest CT 10/31/2017 FINDINGS: CTA: The heart is normal in size. No pericardial effusion. Extensive coronary artery calcifications. No thoracic aortic aneurysm or dissection. The pulmonary artery is opacified to the level of the segmental branches. No filling defects ident ified to suggest thromboembolic disease. CT CHEST: Unremarkable thyroid. No development of pathologic mediastinal, hilar, retrocrural and upper abdominal adenopathy. Paratracheal lymph nodes measure up to 1.5 cm. Right hilar lymph nodes measure up to 1.5 cm. No pneumothorax or pleural effusion. Bronchial wall thickening with mild bi basilar mucous plugging. Multilobar bilateral distribution of tree-in-bud nodules. The central airways are patent. The spleen is enlarged measuring 14.2 cm. Cholecystectomy. Small volume of upper abdominal ascites. Unremarkable soft tissues. No acute fracture. IMPRESSION: 1. No pulmonary emboli. 2. Bronchial wall thickening with multisegmental multilobar distribution of patchy tree-in-bud nodules compatible with a nonspecific bronchitis with bronchiolitis/pneumonitis 3. Pathologic thoracic and upper abdominal adenopathy suggestive of lymphatic metastasis versus lymphoma 4. Splenomegaly with upper abdominal ascites. ACT 112: Negative or not required by law. The above report was generated using voice recognition software. It may contain grammatical, syntax or spelling errors. Electronically signed by: Brendon Ventura M.D. 04/14/2021 2:56 PM Chest X-Ray 04/14/21 13:09 SINGLE VIEW CHEST CLINICAL HISTORY: Dyspnea. FINDINGS: An AP, portable, upright chest radiograph is compared to study dated 03/16/2021 and correlated with chest CT dated 10/31/2017. The examination is degraded by portable technique and patient rotation. The cardiomediastinal silhouette is unremarkable. There is elevation of the right hemidiaphragm and bibasilar atelectasis. Suspect a small right pleural effusion. No airspace consolidation is seen typical for pneumonia. No pneumothorax is identified. The skeletal structures are osteopenic. The bony thorax is grossly intact. IMPRESSION: Suspect a small right pleural effusion. ACT 112: Negative or not required by law. Electronically signed by: Reinaldo Gerber M.D. 04/14/2021 1:50 PM ECG Data Attestation: I personally reviewed and interpreted this ECG as follows: Additional Comments: Twelve-lead EKG: Per my interpretation there is a sinus tach at a rate of 103. No ST elevation. No PVCs. Normal QTC. MDM Narrative Patient presents with hypoxia, slight cough, decreased appetite and shortness of breath 1 month after having a bowel resection. Her initial vital signs showed initial pulse ox of 87% on room air. She is slightly tachycardic. She has initial hypertensive but her blood pressure normalized. Chest x-ray did not show acute process. CT scan of the chest shows bronchial wall thickening and multi segmental multilobular nonspecific bronchitis with bronchiolitis/pneumonia. There is also noted to be pathologic adenopathy in the chest and abdomen consistent with her known history of adenocarcinoma of the colon. There is also a 2.5 cm perfusion defect in the anterior spleen that is consistent with a splenic infarct. There is small to moderate volume abdominal pelvic ascites. The patient's CBC was normal. EKG shows a sinus tach at a rate of 103. BUN is 38 and creatinine is 2.0. This is up from 0.6. Troponin was negative. The patient was treated with some IV fluids. She was given IV cefepime. She will require further inpatient evaluation and care. Impression & Plan Acute kidney injury, Pneumonia, Hypoxia Discharge Plan Visit Data Chief Complaint: Respiratory Problems Stated Complaint: LOW OXYGEN ED Provider: Edgar Ramírez Discharge Problem: Acute kidney injury, Pneumonia, Hypoxia Patient Disposition: Being Evaluated by Hospitalist Forms Stand Alone Forms: My [facility] Prescriptions Prescriptions: No Action albuterol sulfate 2.5 mg /3 mL (0.083 %) solution for nebulization 2.5 mg inhalation Q4H PRN (Reason: shortness of breath or wheezing) Qty: 1 RF: 5 ipratropium bromide 0.02 % solution 0.5 mg inhalation Q4H PRN (Reason: shortness of breath or wheezing) Qty: 360 RF: 1 levothyroxine 75 mcg tablet 75 mcg PO QAM Qty: 90 RF: 1 oxycodone 5 mg tablet 5 mg PO Q8H PRN (Reason: pain) Qty: 30 RF: 0 diphenoxylate-atropine 2.5-0.025 mg tablet 1 tab PO QID PRN (Reason: diarrhea) Qty: 360 RF: 3 ipratropium bromide 21 mcg (0.03 %) spray,non-aerosol 2 spray intranasal BID Qty: 90 RF: 3 ondansetron 8 mg tablet,disintegrating 8 mg PO Q8H PRN (Reason: nausea and vomiting) Qty: 30 RF: 0 albuterol sulfate 90 mcg/actuation HFA aerosol inhaler 2 puffs inhalation Q4H PRN (Reason: Shortness Of Breath) Qty: 3 RF: 0 cholecalciferol (vitamin D3) 2,000 unit capsule 2,000 units PO QAM Qty: 90 RF: 0 magnesium oxide 500 mg capsule 500 mg PO BID RF: 0 amlodipine 5 mg tablet 5 mg PO QAM RF: 0 omeprazole 20 mg capsule,delayed release(DR/EC) 20 mg PO QAM RF: 0 montelukast 10 mg tablet 10 mg PO QPM RF: 0 losartan 100 mg tablet 100 mg PO QAM RF: 0 fluticasone propionate 50 mcg/actuation spray,suspension 2 sprays intranasal BID RF: 0 multivitamin Tablet 1 tab PO QAM RF: 0 Referrals Referrals: Traci Patton DO [Primary Care Provider] -
[2021-04-14 13:38] LABS: Basophils # (auto) 0.02 K/uL (0-0.2); Basophils % (auto) 0.2 %; Eosinophils # (auto) 0.08 K/uL (0-0.5); Eosinophils % (auto) 0.8 %; Hematocrit (blood only) 44.7 % (37-47); Hemoglobin 14.5 g/dL (12.0-16.0); Immature Granulocytes # (auto) 0.18 K/uL (0.00-0.02); Immature Granulocytes % (auto) 1.8 %; Lymphocytes # (auto) 1.08 K/uL (1.2-3.4); Lymphocytes % (auto) 10.9 %; Mean Corpuscular Hemoglobin 28.6 pg (25-34); Mean Corpuscular Hgb Conc 32.4 g/dL (32-36); Mean Corpuscular Volume 88.2 fL (80-100); Mean Platelet Volume 10.7 fL (7.4-10.4); Monocytes # (auto) 0.58 K/uL (0.11-0.59); Monocytes % (auto) 5.8 %; Neutrophils # (auto) 8.01 K/uL (1.4-6.5); Neutrophils % (auto) 80.5 %; Platelet Count 241 K/uL (130-400); RDW Coefficient of Variation 15.2 % (11.5-14.5); RDW Standard Deviation 48.5 fL (36.4-46.3); Red Blood Count 5.07 M/uL (4.2-5.4); White Blood Count 9.95 K/uL (4.8-10.8)
--- NOTE | 2021-04-14 13:52 | XRay Report ---
SINGLE VIEW CHEST CLINICAL HISTORY: Dyspnea. FINDINGS: An AP, portable, upright chest radiograph is compared to study dated 03/16/2021 and correlate d with chest CT dated 10/31/2017. The examination is degraded by portable technique and patient rotati on. The cardiomediastinal silhouette is unremarkable. There is elevation of the right hemidiaphragm and bibasilar atelectasis. Suspect a small right pleural effusion. No airspace consolidation is seen typical for pneumonia. No pneumothorax is identified. The skeletal structures are osteopenic. The [place] thorax is grossly intact. IMPRESSION: Suspect a small right pleural effusion. ACT 112: Negative or not required by law. Electronically signed by: Reinaldo Gerber M.D. 04/14/2021 1:50 PM
[2021-04-14 14:01] LABS: Alanine Aminotransferase 13 U/L (12-78); Albumin Level 2.6 gm/dl (3.4-5.0); Aspartate Aminotransferase 78 U/L (15-37); BUN Creatinine Ratio 18.7 (10-20); Blood Urea Nitrogen 38 mg/dl (7-18); Calcium 9.2 mg/dl (8.5-10.1); Carbon Dioxide 22 mmol/L (21-32); Chloride 100 mmol/L (98-107); Est GFR (African American) 29.7 ml/min; Est GFR (Non-African American) 25.7 ml/min; Glucose 123 mg/dl (70-99); INR 1.3 (0.9-1.1); Magnesium 1.9 mg/dl (1.8-2.4); Partial Thromboplastin Ratio 0.9; Partial Thromboplastin Time 23.1 Seconds (21.0-31.0); Prothrombin Time 12.6 Seconds (9.0-12.0); Sodium 136 mmol/L (136-145)
[2021-04-14 14:06] LABS: Albumin Globulin Ratio 0.6 (0.9-2); Alkaline Phosphatase 142 U/L (45-117); Bilirubin,Total 0.6 mg/dl (0.2-1); D Dimer 30120 ug/L FEU (0-500); Globulin 4.3 gm/dl (2.5-4.0); NT Pro B Type Natriuretic Pept 727 pg/ml (0-900); Total Protein 6.9 gm/dl (6.4-8.2); Troponin I < 0.015 ng/ml (0-0.045)
[2021-04-14] MEDS ORDERED: OPTIRAY 320 125ml IV ONE (14:15)
--- NOTE | 2021-04-14 14:55 | CT Scan Report ---
CT SCAN OF THE ABDOMEN AND PELVIS WITH IV CONTRAST CLINICAL HISTORY: Generalized abdominal pain. Reported history of recent bowel resection. COMPARISON STUDY: Abdominal CT dated 03/10/2021 TECHNIQUE: Following the IV administration of 120 cc of Optiray 320, CT scan of the abdomen and pelv is is performed from the lung bases to the proximal femora. Images are reviewed in the axial, sagitta l, and coronal planes. IV contrast was administered without complication. A dose lowering technique w as utilized adhering to the principles of ALARA. FINDINGS: Lung bases: The heart is normal in size and without pericardial effusion. The coronary arteries are d ensely calcified. Enlarged hilar nodes are partially visualized and measure up to 2 cm in short axis. Irregular airspace opacities at both lung bases could represent scar/atelectasis versus a mild infec tious/inflammatory pneumonitis. See report of chest CT performed concurrently for detailed intrathora cic findings. Liver: The contrast-enhanced liver is normal in size, contour, and attenuation. There is no intrahepa tic biliary ductal dilatation. The hepatic veins and portal veins are patent. Adenopathy in the hepat ic hilum causes mild mass effect on the main portal vein. Gallbladder: Surgically absent noting clips in the gallbladder fossa. Spleen: There is a 2.5 cm perfusion defect in the anterior spleen seen on image #108. This is consist ent with a small splenic infarct. The spleen is normal in size and otherwise normal in attenuation. T he splenic vein is patent. Pancreas: The pancreas is moderately atrophic and grossly unremarkable. Adrenal glands: Unremarkable. Kidneys: The contrast enhanced kidneys are normal in size and without hydronephrosis. The kidneys enh ance symmetrically. Adenopathy significantly narrows the left renal vein as seen on image #199. Abdominal vasculature: The abdominal aorta is normal in course and caliber noting moderate atheroscle rotic calcification. The IVC is effaced by retroperitoneal lymphadenopathy. Bowel: There is postoperative change from right hemicolectomy with ileocolic anastomosis. No bowel ob struction is identified. There is mild colonic diverticulosis without CT evidence of acute diverticul itis. Peritoneum: There is a small volume of perihepatic and perisplenic ascites, as well as a small to mod erate volume of pelvic ascites. No intraperitoneal free air is identified. A midline surgical scar is noted. Lymphadenopathy: There is bulky upper abdominal lymphadenopathy. A node in the fiona hepatis on image #162 measures 3.9 x 2.6 cm. A large gastrohepatic node on image #170 measures 4.9 x 2.8 cm. A retroc [place] node on image #112 measures 2.1 x 1.9 cm. There is bulky retroperitoneal lymphadenopathy. A lef t periaortic node on image #217 measures 3.1 x 1.9 cm. There is bulky mesenteric lymphadenopathy. A r epresentative mesenteric node on image #253 measures 3.1 x 2.0 cm. No pelvic sidewall or inguinal ashley nopathy is identified. Several nodes show evidence of partial necrosis. Pelvic viscera: The bladder is decompressed and grossly unremarkable. The uterus is surgically absent . No adnexal lesion is seen. Skeletal structures: The skeletal structures are osteopenic. There is mild lumbosacral spondylosis. N o lytic or blastic lesions are seen. IMPRESSION: 1. There is a 2.5 cm perfusion defect in the anterior spleen. This is new from 03/10/2021 and consisten t with a splenic infarct. 2. There is postoperative change from right hemicolectomy with ileocolic anastomosis. No bowel obstru ction is identified. 3. Small to moderate volume of abdominopelvic ascites. This is new from previous. 4. There is bulky upper abdominal, retroperitoneal, retrocrural, and mesenteric lymphadenopathy. Christine r adenopathy is also partially visualized. This has significantly progressed as compared to 03/10/2021. Several of these nodes show partial necrosis. Correlate with the patient's oncological history. 5. Retroperitoneal lymphadenopathy significant narrows the left renal vein. This also effaces the IVC at the level of the renal veins. 6. Additional findings as above. ACT 112: Negative or not required by law. Electronically signed by: Reinaldo Gerber M.D. 04/14/2021 2:54 PM
--- NOTE | 2021-04-14 14:58 | CT Scan Report ---
CT angio chest PE protocol CT DOSE: 2447.51 mGy.cm HISTORY: 60 years-old Female with Dyspnea. Acute shortness of breath TECHNIQUE: Multiple CTA images of the chest were obtained after the intravenous administration of 120 ml Optiray. Coronal and sagittal MIPS were obtained from the axial data set and were submitted for review. All measurements were obtained according to NASCET criteria. A dose lowering technique was u tilized adhering to the principles of ALARA. COMPARISON: CT abdomen and pelvis of same day, chest CT 10/31/2017 FINDINGS: CTA: The heart is normal in size. No pericardial effusion. Extensive coronary artery calcifications. No th oracic aortic aneurysm or dissection. The pulmonary artery is opacified to the level of the segmental branches. No filling defects identified to suggest thromboembolic disease. CT CHEST: Unremarkable thyroid. No development of pathologic mediastinal, hilar, retrocrural and upper abdomina l adenopathy. Paratracheal lymph nodes measure up to 1.5 cm. Right hilar lymph nodes measure up to 1. 5 cm. No pneumothorax or pleural effusion. Bronchial wall thickening with mild bibasilar mucous plugging. M ultilobar bilateral distribution of tree-in-bud nodules. The central airways are patent. The spleen i s enlarged measuring 14.2 cm. Cholecystectomy. Small volume of upper abdominal ascites. Unremarkable soft tissues. No acute fracture. IMPRESSION: 1. No pulmonary emboli. 2. Bronchial wall thickening with multisegmental multilobar distribution of patchy tree-in-bud nodule s compatible with a nonspecific bronchitis with bronchiolitis/pneumonitis 3. Pathologic thoracic and upper abdominal adenopathy suggestive of lymphatic metastasis versus lymph shannan 4. Splenomegaly with upper abdominal ascites. ACT 112: Negative or not required by law. The above report was generated using voice recognition software. It may contain grammatical, syntax o r spelling errors. Electronically signed by: Brendon Ventura M.D. 04/14/2021 2:56 PM
[2021-04-14] MEDS ORDERED: CEFEPIME 2,000 MG/20 ML VIAL IV STA (15:01)
--- NOTE | 2021-04-14 15:44 | History & Physical Report ---
Date of Service April 14, 2021 Assessment & Plan (1) Hypoxia: Plan: Acute hypoxic respiratory failure currently requiring 4 liters nasall cannula. Possible viral pneumonitis vs atypical pneumonia. Will order procal: however may be faslely elevated due to CRISTI. will place on cefepime. obtained blood culture will hold sputum culture as patient states non productive cough. will order xopenex. (2) Acute kidney injury: Plan: Patient has CRISTI Creatinine is significantly elevated. will order gentle IVF.and will monitor creatinine in AM. May be pre-renal failure, on exam, patient does not appear to be (3) Adenocarcinoma of colon: Plan: s/p partial colectomy. (4) History of colectomy: Plan: as above. will hold off surgical consult. (5) Hypothyroidism: Plan: resume home meds (6) Irritable bowel syndrome: Plan: appears controlled. (7) Morbid obesity: Plan: recommend lifestyle recommendations BMI 43 (8) Asthma: Plan: PLACED ON XOPENEX NEBS (9) Chronic reflux esophagitis: Plan: RESUME PPI (10) Dyslipidemia: Plan: DIET CONTROLLED History of Present Illness Chief Complaint: Not feeling well Primary Care Provider: Traci Patton, DO 60 yo female with a past medical history of IBS, well-controlled asthma, HTN, hyperlipidemia, and hypothyroidism comes into the hospital after being seen by Dr. Campbell in his outpatient practice today. She appeared unwell at the appointment and was found to be hypoxic. Patient was recently discharged (1 month ago), and had a bowel resection for colon adenocarcinoma. She reports that since discharge she has not returned to baseline. She states she has been having good days and bad days. She reports that on her bad days she was complaining of dyspnea which can occur sporadically, worsen with activity but improves when she lies down. This was accompanied by cold sweats during the day, and decreased appetite. Bad days would occur intermittently every other day. However she feels that the past 3 days have been bad. She denies any chest pains or headaches. She denies fevers. She has had a slight cough. No runny nose or sore throat. Denies any pain or swelling in her legs. She does have some abdominal discomfort she feels is related to her recent surgery. No additional complaints at this time. Allergies Allergy/AdvReac Type Severity Reaction Status Date / Time house dust mite Allergy Mild sneezy, Verified 04/14/21 11:37 watery eyes oak Allergy Mild sneezy, Verified 04/14/21 11:37 watery eyes No Known Drug Allergies AdvReac Unknown Verified 04/14/21 11:37 Home Medications Medication Instructions Recorded Confirmed Type albuterol sulfate 90 mcg/actuation 2 puffs INHALATION Q4H PRN #3 gm 03/15/19 04/14/21 History aerosol inhaler albuterol sulfate 2.5 mg INHALATION Q4H PRN #1 box 04/27/19 04/14/21 Rx cholecalciferol (vitamin D3) 50 2,000 units PO QAM #90 cap 06/13/19 04/14/21 History mcg (2,000 unit) capsule magnesium oxide 500 mg capsule 500 mg PO BID cap 06/13/19 04/14/21 History ipratropium bromide 0.02 % 0.5 mg INHALATION Q4H PRN #360 ml 10/09/20 04/14/21 Rx solution for inhalation diphenoxylate-atropine 2.5 1 tab PO QID PRN #360 tab 01/19/21 04/14/21 Rx mg-0.025 mg tablet ipratropium bromide 21 mcg (0.03 2 spray INTRANASAL BID #90 ml 01/19/21 04/14/21 Rx %) nasal spray amlodipine 5 mg tablet 5 mg PO QAM 03/10/21 04/14/21 History fluticasone propionate 50 2 sprays INTRANASAL BID 03/10/21 04/14/21 History mcg/actuation nasal spray,suspension losartan 100 mg tablet 100 mg PO QAM 03/10/21 04/14/21 History montelukast 10 mg tablet 10 mg PO QPM 03/10/21 04/14/21 History multivitamin 1 tab PO QAM 03/10/21 04/14/21 History omeprazole 20 mg capsule,delayed 20 mg PO QAM 03/10/21 04/14/21 History release levothyroxine 75 mcg tablet 75 mcg PO QAM #90 tab 03/30/21 04/14/21 Rx ondansetron 8 mg disintegrating 8 mg PO Q8H PRN #30 tab 03/30/21 04/14/21 Rx tablet oxycodone 5 mg tablet 5 mg PO Q8H PRN #30 tab 04/08/21 04/14/21 Rx Past Med/Surg History Medical History Adenocarcinoma of colon Allergic rhinitis Asthma inhalers daily/prn and nebulizer prn Benign essential hypertension Chronic reflux esophagitis Chronic sinusitis Diverticulosis Dyslipidemia Elevated IgE level History of kidney stones History of pancreatitis "quite a few years ago" Hypothyroidism Irritable bowel syndrome Morbid obesity with BMI of 40.0-44.9, adult Osteoarthrosis Surgical History H/O: hysterectomy Total abdominal with removal of both ovaries History of ankle surgery left achilles tendon--hardware in place History of section x2 History of colectomy (03/13/21) open R hemicolectomy History of tooth extraction all teeth S/P appendectomy S/P cholecystectomy (01/2013) S/P sinus surgery January 2013 Family History Mother , age 72 Breast cancer, Onset Age: 60 Grandfather (Paternal) Diabetes Myocardial infarction Father Stroke Other No family history of adverse response to anesthesia Denies family history of Ovarian cancer Prostate cancer Lung cancer Colorectal cancer Social History Smoking Status: Former smoker packs per day: 0.25; Years Smoked: 6; Number of Years Since Quit: 33; Second Hand Exposure: No; Hx Alcohol Use: No Hx Substance Use: No Preferred Language: Telugu Communication Ability: Effective Visual Impairment: No Limitations Hearing Ability: Normal Seasonal Delivery Driver Required: No Beliefs That Will Affect Care: None marital status: Current Living Situation: Spouse current occupational status: employed 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 Feels Safe at Home: Yes Childhood Exposure to Second-Hand Smoke: No Diet Comment: regular caffeine: Yes (coffee) during the past year weight has: remained stable Dental Care, Regularly: Yes Physical Activity Frequency: 3-4 Times per Week Physical Activity Frequency Comment: walking Seatbelt Use: always Sunscreen Use: No Assistive Devices: Glasses Review of Systems Review of Systems: All systems reviewed & are unremarkable except as noted in HPI & below Physical Exam Constitutional: WD/WN, vitals as above Eyes: PERRL, conjunctivae normal, anicteric sclerae ENMT: external ear and nose normal, oropharynx normal Neck: trachea midline, no thyromegaly Respiratory: normal respiratory effort, lungs clear to auscultation (except for wheezing in the Right lower lobe) Cardiovascular: RRR, no murmur, no edema Gastrointestinal (Abdomen): normal bowel sounds, soft, nontender, no hepatosplenomegaly Musculoskeletal: no cyanosis or clubbing, extremities motor strength 5/5 Skin: no rashes, warm and dry Neurologic: PERRL, EOMI, accommodation nl, no face palsy, no dysarthria Psychiatric: A+Ox3, euthymic affect Lymphatic: no cervical or axillary lymphadenopathy Results & Data Results & Data ([facility]) Vital Signs (Past 12 Hours) Vital Signs Temp Pulse Resp BP Pulse Ox 04/14/21 14:27 100 04/14/21 14:00 96 H 23 118/75 96 04/14/21 13:45 99 H 23 107/86 96 04/14/21 13:31 102 H 21 101/73 97 04/14/21 13:27 103 H 27 H 111/80 96 04/14/21 13:05 105 H 18 119/86 95 04/14/21 13:04 95 04/14/21 12:55 35.6 C L 112 H 24 166/107 H 87 L PG Care Time/CCT Total # of Minutes Spent Total Time Spent with Patient: Total time spent is greater than 50% in coordination of care (as documented) at patient's floor/unit and/or counseling patient: Coding Level of Care Code 36150 Initial Inpt Care Lvl 3 Diagnoses Hypoxia R09.02 Adenocarcinoma of colon C18.9 History of colectomy Z90.49 Acute kidney injury N17.9 Hypothyroidism E03.9 Irritable bowel syndrome K58.0 Irritable bowel syndrome type: with diarrhea Morbid obesity E66.01 Asthma J45.909 Chronic reflux esophagitis K21.0 Dyslipidemia E78.5 (1) Irritable bowel syndrome Irritable bowel syndrome type: with diarrhea Qualified Code(s): K58.0 - Irritable bowel syndrome with diarrhea
[2021-04-14] MEDS ORDERED: ONDANSETRON 4 MG OD TAB ONE (17:18)
--- NOTE | 2021-04-14 18:34 | Electrocardiogram Report ---
Test Reason : Blood Pressure : / mmHG Vent. Rate : 103 BPM Atrial Rate : 103 BPM P-R Int : 146 ms QRS Dur : 094 ms QT Int : 330 ms P-R-T Axes : 033 -49 012 degrees QTc Int : 432 ms Sinus tachycardia Possible Left atrial enlargement Incomplete right bundle branch block Left anterior fascicular block Left ventricular hypertrophy Abnormal ECG When compared with ECG of 12-MAR-2021 18:24, Incomplete right bundle branch block is now Present Confirmed by Jim Bell ([id number]) on 04/14/2021 6:34:10 PM Referred By: Yayo Campbell Confirmed By:Sanford Bell
[2021-04-14] MEDS: LEVALBUTEROL HCL 1.25 MG/3 ML NEB NEB SCH (19:06)
[2021-04-14] MEDS: SODIUM CHLORIDE 0.9% 1000ML 1,000 ML IV SCH (20:41)
[2021-04-14] MEDS: FLUTICASONE PROPIONATE NA SPR 16 GM BTL SCH (20:44)
[2021-04-14] MEDS: MONTELUKAST SODIUM 10 MG TABLET PO SCH (20:46)
[2021-04-14] MEDS: MAGNESIUM OXIDE 400 MG TAB PO SCH (20:46)
[2021-04-14] MEDS: ACETAMINOPHEN 325 MG TAB PO PRN (20:54)
[2021-04-14] MEDS ORDERED: oxyCODONE HCL IR 5 MG TAB (IMMEDIATE RELEASE) PO STA (21:01)
[2021-04-15] MEDS: LEVALBUTEROL HCL 1.25 MG/3 ML NEB NEB SCH ×3 (00:08→13:14)
[2021-04-15] MEDS: CEFEPIME 2,000 MG in SYRINGE 0 ML IV SCH ×2 (04:12→15:32)
[2021-04-15] MEDS: SODIUM CHLORIDE 0.9% 1000ML 1,000 ML IV SCH (04:12)
[2021-04-15] MEDS: LEVOTHYROXINE SODIUM 75 MCG TABLET PO SCH (05:59)
[2021-04-15] MEDS: ACETAMINOPHEN 325 MG TAB PO PRN ×2 (09:16→15:30)
[2021-04-15] MEDS: LOSARTAN POTASSIUM 50 MG TAB PO SCH (09:18)
[2021-04-15] MEDS: amLODIPine BESYLATE 5 MG TAB PO SCH (09:18)
[2021-04-15] MEDS: PANTOprazole 40 MG TAB PO SCH (09:18)
[2021-04-15] MEDS: ASPIRIN 81 MG ECTAB PO SCH (09:18)
[2021-04-15] MEDS: FLUTICASONE PROPIONATE NA SPR 16 GM BTL SCH ×2 (09:19→19:52)
[2021-04-15] MEDS: MAGNESIUM OXIDE 400 MG TAB PO SCH ×2 (09:20→19:52)
[2021-04-15] MEDS: CHOLECALCIFEROL 1,000 UNITS 25 MCG TAB PO SCH (09:21)
[2021-04-15] MEDS: MULTIVITAMIN TAB PO SCH (09:21)
[2021-04-15] MEDS: oxyCODONE HCL IR 5 MG TAB (IMMEDIATE RELEASE) PO PRN (16:51)
[2021-04-15] MEDS: ONDANSETRON 8MG OD TAB PO PRN (18:07)
--- NOTE | 2021-04-15 19:21 | Hospitalist Progress Note ---
Date of Service April 15, 2021 Assessment & Plan (1) Hypoxia: Plan: Acute hypoxic respiratory failure no pulmonary emboli identified does have some bronchitis or bronchiolitis seen currently requiring 4 liters nasal cannula. Possible viral pneumonitis vs atypical pneumonia. elevated procal: however may be faslely elevated due to CRISTI. continue on cefepime. blood culture negative to date will hold sputum culture as patient states non productive cough. continue on xopenex. (2) Acute kidney injury: Plan: Patient has CRISTI Creatinine is significantly elevated. will order gentle IVF.and will monitor creatinine in AM. May be pre-renal failure, on exam, patient does not appear to be volume overloaded (3) Adenocarcinoma of colon: Plan: s/p partial colectomy. (4) History of colectomy: Plan: as above. surgical consult for mediport placement with Dr Campbell (5) Hypothyroidism: Plan: resume home meds (6) Irritable bowel syndrome: Plan: appears controlled. (7) Morbid obesity: Plan: recommend lifestyle recommendations BMI 43 (8) Asthma: Plan: PLACED ON XOPENEX NEBS (9) Chronic reflux esophagitis: Plan: RESUME PPI (10) Dyslipidemia: Plan: DIET CONTROLLED Admission and Anticipated Discharge Date Admission Date: April 14, 2021 Subjective this pt has significant pain from splenic infarction, she was surprised to hear that she had metastatic disease, she did have some tearfulness. did discuss mediport placement and she is considering, did speak to Dr Dawn and expects to see in clinic Review of Systems Review of Systems: Mild distress and fatigue no headache, no visual changes no speech or swallowing issues no chest pain, pressure or palpitations no shortness of breath, cough or wheezes Significant abdominal pain nausea no vomiting flatus but no stool production no dysuria, hematuria or frequency no focal joint pain or swelling no back pain, CVA tenderness or radicular pain no bruising, bleeding or rashes no focal signs of weakness or numbness or altered sensation no complaints of anxiety or depression.. Physical Exam Physical Exam: The patient appeared well nourished and normally developed. Vital signs as documented. Head exam is normocephalic atraumatic Neck is without JVD, thyromegaly, or carotid bruits. Lungs are clear to auscultation, no focal loss of breath sounds Cardiac exam, Rhythm is regular.. No murmurs, rubs or gallops. Abdominal exam reveals normal bowel sounds, soft tender to palpation Extremities are nonedematous and both pedal pulses are present Neurologic exam is alert and oriented, no focal loss of strength or sensation Skin is without bruises or rashes Psychologically is without concerns for anxiety or depression Results & Data Results & Data ([facility]) Vital Signs (Past 12 Hours) Vital Signs Temp Pulse Pulse Resp BP Pulse Ox 04/15/21 18:28 98.2 F 108 H 18 149/92 H 92 04/15/21 15:16 98.8 F 106 H 18 140/84 90 04/15/21 14:20 101 H 04/15/21 13:16 101 H 18 95 04/15/21 11:34 98.8 F 96 H 18 143/82 H 97 04/15/21 07:24 98.6 F 95 H 18 140/89 98 04/15/21 07:20 98 H 16 98 PG Care Time/CCT Total # of Minutes Spent Total Time Spent with Patient: Total time spent is greater than 50% in coordination of care (as documented) at patient's floor/unit and/or counseling patient: Coding Level of Care Code 24552 Subseq Hosp Care Lvl 2 Diagnoses Hypoxia R09.02 Acute kidney injury N17.9 Adenocarcinoma of colon C18.9 History of colectomy Z90.49 Hypothyroidism E03.9 Irritable bowel syndrome K58.0 Irritable bowel syndrome type: with diarrhea Morbid obesity E66.01 Asthma J45.909 Chronic reflux esophagitis K21.0 Dyslipidemia E78.5 (1) Irritable bowel syndrome Irritable bowel syndrome type: with diarrhea Qualified Code(s): K58.0 - Irritable bowel syndrome with diarrhea
[2021-04-15] MEDS: ACETAMINOPHEN 500 MG TAB PO SCH (19:52)
[2021-04-15] MEDS: MONTELUKAST SODIUM 10 MG TABLET PO SCH (19:53)
[2021-04-16] MEDS: CEFEPIME 2,000 MG in SYRINGE 0 ML IV SCH ×3 (03:50→22:11)
[2021-04-16] MEDS: oxyCODONE HCL IR 5 MG TAB (IMMEDIATE RELEASE) PO PRN ×2 (03:50→12:01)
[2021-04-16] MEDS: LEVOTHYROXINE SODIUM 75 MCG TABLET PO SCH (05:23)
[2021-04-16] MEDS: amLODIPine BESYLATE 5 MG TAB PO SCH (08:07)
[2021-04-16] MEDS: MULTIVITAMIN TAB PO SCH (08:07)
[2021-04-16] MEDS: ACETAMINOPHEN 500 MG TAB PO SCH ×3 (08:07→20:11)
[2021-04-16] MEDS: MAGNESIUM OXIDE 400 MG TAB PO SCH ×2 (08:07→20:10)
[2021-04-16] MEDS: PANTOprazole 40 MG TAB PO SCH (08:07)
[2021-04-16] MEDS: LOSARTAN POTASSIUM 50 MG TAB PO SCH (08:07)
[2021-04-16] MEDS: FLUTICASONE PROPIONATE NA SPR 16 GM BTL SCH ×2 (08:08→20:10)
[2021-04-16] MEDS: CHOLECALCIFEROL 1,000 UNITS 25 MCG TAB PO SCH (08:08)
[2021-04-16] MEDS: ASPIRIN 81 MG ECTAB PO SCH (08:08)
[2021-04-16 08:27] LABS: Creatinine Clr Calc Pharmacy 70.4 ml/min; Est GFR (African American) 56.5 ml/min; Est GFR (Non-African American) 48.7 ml/min
[2021-04-16] MEDS: ONDANSETRON 8MG OD TAB PO PRN (09:05)
[2021-04-16] MEDS ORDERED: ENOXAPARIN INJ 40 MG/0.4 ML SYR SQ SCH (12:45)
[2021-04-16] MEDS ORDERED: ENOXAPARIN 1.5 MG/KG SQ SCH (13:45)
[2021-04-16] MEDS ORDERED: ENOXAPARIN 1 MG/KG SQ SCH (14:15)
[2021-04-16] MEDS: HYDROmorphone INJ 0.5 MG/0.5 ML SYR IV PRN ×2 (16:02→20:03)
[2021-04-16] MEDS: ENOXAPARIN 150 MG/ML SYR SQ SCH (16:02)
[2021-04-16] MEDS: MONTELUKAST SODIUM 10 MG TABLET PO SCH (20:10)
--- NOTE | 2021-04-16 20:37 | Hospitalist Progress Note ---
Date of Service April 16, 2021 Assessment & Plan (1) Hypoxia: Plan: Acute hypoxic respiratory failure no pulmonary emboli identified does have some bronchitis or bronchiolitis seen currently requiring 4 liters nasal cannula. Possible viral pneumonitis vs atypical pneumonia. elevated procal: however may be faslely elevated due to CRISTI. continue on cefepime. for possible gram negative pneumonia, blood culture negative to date will hold sputum culture as patient states non productive cough. continue on xopenex. (2) Splenic infarction: Plan: coagulation clinic recommends therapeutic anticoagulation for splenic infaction, was given one dose 04/16,but held in case surgery can place Mediport 04/17 if cannot will restart (3) Acute kidney injury: Plan: Patient has CRISTI Creatinine normalized and cristi resolved (4) Adenocarcinoma of colon: Plan: s/p partial colectomy. there is evidence of bulky lymphadenopathy in abdomen and chest in some places pushing on vascular structure, CEA 186 03/10, 1147 04/16 (5) History of colectomy: Plan: as above. surgical consult for mediport placement with Dr Campbell (6) Hypothyroidism: Plan: resume home meds (7) Irritable bowel syndrome: Plan: appears controlled. (8) Morbid obesity: Plan: recommend lifestyle recommendations BMI 43 (9) Asthma: Plan: PLACED ON XOPENEX NEBS (10) Chronic reflux esophagitis: Plan: RESUME PPI (11) Dyslipidemia: Plan: DIET CONTROLLED Admission and Anticipated Discharge Date Admission Date: April 14, 2021 Subjective this pt has significant pain from splenic infarction, she was surprised to hear that she had metastatic disease, she did have some tearfulness. did discuss mediport placement and she is considering, did speak to Dr Dawn and expects to see in clinic after conferring with coagulation clinic therapeutic lovenox is recommended, but this will be held in the evening 04/16/21 in case the Mediport can be placed 04/17/21 Review of Systems Review of Systems: Mild distress and fatigue no headache, no visual changes no speech or swallowing issues no chest pain, pressure or palpitations no shortness of breath, cough or wheezes Significant abdominal pain nausea no vomiting flatus but no stool production no dysuria, hematuria or frequency no focal joint pain or swelling no back pain, CVA tenderness or radicular pain no bruising, bleeding or rashes no focal signs of weakness or numbness or altered sensation no complaints of anxiety or depression.. Physical Exam Physical Exam: The patient appeared well nourished and normally developed. Vital signs as documented. Head exam is normocephalic atraumatic Neck is without JVD, thyromegaly, or carotid bruits. Lungs are clear to auscultation, no focal loss of breath sounds Cardiac exam, Rhythm is regular.. No murmurs, rubs or gallops. Abdominal exam reveals normal bowel sounds, soft tender to palpation Extremities are nonedematous and both pedal pulses are present Neurologic exam is alert and oriented, no focal loss of strength or sensation Skin is without bruises or rashes Psychologically is without concerns for anxiety or depression Results & Data Results & Data ([facility]) Vital Signs (Past 12 Hours) Vital Signs Temp Pulse Pulse Resp BP BP Pulse Ox 04/16/21 19:22 97.9 F 115 H 18 132/85 94 04/16/21 15:05 98 H 04/16/21 15:00 99.1 F 95 H 20 136/79 96 04/16/21 11:00 97.5 F L 95 H 20 132/87 95 PG Care Time/CCT Total # of Minutes Spent Total Time Spent with Patient: Total time spent is greater than 50% in coordination of care (as documented) at patient's floor/unit and/or counseling patient: Coding Level of Care Code 75998 Subseq Hosp Care Lvl 3 Diagnoses Hypoxia R09.02 Acute kidney injury N17.9 Adenocarcinoma of colon C18.9 History of colectomy Z90.49 Hypothyroidism E03.9 Irritable bowel syndrome K58.0 Irritable bowel syndrome type: with diarrhea Morbid obesity E66.01 Asthma J45.909 Chronic reflux esophagitis K21.0 Dyslipidemia E78.5 Splenic infarction 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
[2021-04-17] MEDS: HYDROmorphone INJ 0.5 MG/0.5 ML SYR IV PRN (03:54)
[2021-04-17] MEDS: CEFEPIME 2,000 MG in SYRINGE 0 ML IV SCH ×3 (06:12→21:03)
[2021-04-17] MEDS: LEVOTHYROXINE SODIUM 75 MCG TABLET PO SCH (06:12)
[2021-04-17] MEDS ORDERED: oxyCODONE/ACETAMINOPHEN 5mg/325mg TAB PO PRN ×2 (08:39)
--- NOTE | 2021-04-17 08:41 | Surgery Progress Note ---
Date of Service April 17, 2021 Assessment & Plan (1) Hypoxia: (2) Shortness of breath: (3) Adenocarcinoma of colon: Plan: discussed port with pt. do not want to place in face of pulmonary issues/possible pneumonia. will place within the next 2 weeks. will arrange as out-pt. will add oral analgesics for abdominal pain...suspect pain may be from tumor burden. Admission and Anticipated Discharge Date Admission Date: April 14, 2021 Subjective pt seen. today "not feeling to good".... c/o of mid/lower abdominal pain. Physical Exam Physical Exam: soft. mild tenderness. no g/r/r Results & Data ([facility]) Vital Signs (Past 12 Hours) Vital Signs Temp Pulse Pulse Resp BP BP Pulse Ox 04/17/21 06:40 36.8 C 89 18 164/89 H 92 04/17/21 02:28 37.0 C 98 H 18 141/85 H 91 04/17/21 00:00 92 H 04/16/21 22:34 37 C 93 H 20 137/80 93 PG Care Time/CCT Total # of Minutes Spent Total Time Spent with Patient: Total time spent is greater than 50% in coordination of care (as documented) at patient's floor/unit and/or counseling patient: Coding Level of Care Code 03522 Subseq Hosp Care Lvl 2 Diagnoses Hypoxia R09.02 Shortness of breath R06.02 Adenocarcinoma of colon C18.9
[2021-04-17] MEDS: oxyCODONE HCL IR 5 MG TAB (IMMEDIATE RELEASE) PO PRN ×2 (08:56→17:41)
[2021-04-17] MEDS: ASPIRIN 81 MG ECTAB PO SCH (08:56)
[2021-04-17] MEDS: MAGNESIUM OXIDE 400 MG TAB PO SCH ×2 (08:57→20:12)
[2021-04-17] MEDS: PANTOprazole 40 MG TAB PO SCH (08:57)
[2021-04-17] MEDS: LOSARTAN POTASSIUM 50 MG TAB PO SCH (08:58)
[2021-04-17] MEDS: amLODIPine BESYLATE 5 MG TAB PO SCH (08:58)
[2021-04-17] MEDS: CHOLECALCIFEROL 1,000 UNITS 25 MCG TAB PO SCH (08:58)
[2021-04-17] MEDS: MULTIVITAMIN TAB PO SCH (08:58)
[2021-04-17] MEDS: FLUTICASONE PROPIONATE NA SPR 16 GM BTL SCH ×2 (08:59→20:11)
[2021-04-17 09:03] LABS: Creatinine Clr Calc Pharmacy 93.3 ml/min; Est GFR (African American) 77.9 ml/min; Est GFR (Non-African American) 67.2 ml/min
--- NOTE | 2021-04-17 09:13 | Consultation Report ---
MEDICAL ONCOLOGY CONSULTATION DATE OF SERVICE: 04/17/2021. REASON FOR CONSULTATION: Metastatic colorectal cancer, stage IV ([id number]), date of diagnosis 021. HISTORY OF PRESENT ILLNESS: Verito Norton is a very pleasant, unfortunate, 60-year-old, morbidly obe se female who was admitted to [facility] on 04/14/2021 with feeling poorly and appe aring hypoxic. Verito had been visiting with Dr. Campbell, who performed her right hemicolectomy and lymph node dissection on 03/13/[address] Campbell felt the patient did not look well and was symptomatic, thus necessitating her visit to the emergency room. Since her catherine donell, she had reported both good and bad days. On the days she was symptomatic, was complaining of d yspnea. She also reported cold sweats and decreased appetite. Verito originally presented to [facility] for abdominal pain back in late February. CT scan of the abdomen and pelvis at brittni t time had revealed a moderately distended cecum and ascending colon with transition point within the hepatic flexure, underlying colonic lesion extending 4 cm. There was notable extensive mesenteric r etroperitoneal and retrocrural lymphadenopathy. Because of her symptomatology, she was taken emergen tly to the operating room by Dr. Campbell, who performed right hemicolectomy and lymph node dissectio n. Pathology confirmed a locally advanced tumor (T4 with multiple positive lymph nodes, I believe 27 in number) with multiple deposits also noted. The patient had continued to struggle post discharge with increasing diffuse abdominal pain necessitating readmission to [facility]. I was alerted to Verito's case by Dr. Garcia, the managing hospitalist advising me of her updated CT scan of the abdomen and pelvis, which clearly indicates progressing abdominal regional lymphadenopath y. I asked him to draw a CEA on Verito and indeed CEA is significantly elevated, 1147.3 to be precise . Thus requesting bedside consultation to discuss treatment options moving forward. Karla will b e necessary as she will require salvage treatment for metastatic colorectal cancer. PAST MEDICAL HISTORY: Significant for metastatic colorectal cancer, essential hypertension, GERD, ch ronic sinusitis, diverticulosis, dyslipidemia, elevated IgE level, history of nephrolithiasis, histor y of pancreatitis, hypothyroidism, irritable bowel syndrome, morbid obesity, osteoarthritis. PAST SURGICAL HISTORY: Status post hysterectomy and bilateral salpingo-oophorectomy, history of ankl e surgery, left Achilles tendon repair, history of section x2, history of colectomy on 03/13, history of tooth extraction, status post appendectomy, cholecystectomy and sinus surgery. MEDICATIONS: Albuterol inhaler 2 puffs inhaled q. 4 hours p.r.n., cholecalciferol 2000 units p.o. da irma, magnesium oxide 500 mg p.o. b.i.d., ipratropium bromide 0.5 inhaled q. 4 hours p.r.n., Lomotil 1 tablet p.o. q.i.d. p.r.n., amlodipine 5 mg p.o. daily, Flonase 2 sprays intranasal b.i.d., losartan 100 mg p.o. daily, montelukast 10 mg p.o. daily, omeprazole 20 mg p.o. daily, levothyroxine 75 mcg p. o. daily, Zofran 8 mg p.o. q. 8 hours p.r.n., oxycodone 5 mg p.o. q. 8 hours p.r.n. ALLERGIES: HOUSE DUST MITE, OAK. No other drug allergies listed. FAMILY HISTORY: Mother age 72, suffered from breast cancer. Paternal grandfather with diab etes mellitus and myocardial infarction. Father succumbed to stroke. No history of colorectal cance r. 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 She resides with her spouse. She is a reformed light smoker. Negative for alcohol or illicit substances. REVIEW OF SYSTEMS: CONSTITUTIONAL: As per HPI, most notable for anorexia and diffuse abdominal pain. No fevers, chills , or sweats. SKIN: No rashes or lesions. No history of dermatoses. HEENT: Negative for headaches, lightheadedness, or dizziness. No visual or hearing deficits. No si nus symptoms, sore throat, or dysphagia. LYMPH: No history of lymphoproliferative disease. CARDIAC: No angina or palpitations. PULMONARY: Positive for COPD, utilizes bronchodilators. She is not acutely short of breath, dyspnei c, or orthopneic at present. GASTROINTESTINAL: As per HPI. GENITOURINARY: No hematuria, dysuria, urinary incontinence. MUSCULOSKELETAL: No arthralgias or myalgias. No focal muscle weakness. ENDOCRINE: Positive for hypothyroidism. NEUROLOGIC: Negative for seizure, stroke, or migraine headache. HEMATOLOGIC: Negative for anemia, thrombophilia, or bleeding diathesis. PHYSICAL EXAMINATION: GENERAL: Morbidly obese, very pleasant, 60-year-old female patient, awake, alert and appropriate, in no acute distress. VITAL SIGNS: Temperature 36.8, pulse 89, respiratory rate 18, blood pressure 164/89. SKIN: Warm, dry, noncyanotic without petechiae, rash, or ecchymosis. HEENT: Head is atraumatic, normocephalic. Eyes, PERRLA. EOMI. Sclerae are nonicteric. No conjunct ival injection. Nares are patent without rhinorrhea or discharge. Throat is clear. Tongue is midli ne. Mucous membranes are moist. NECK: Supple without JVD or thyromegaly. LYMPH: No cervical, supraclavicular palpable nodes. HEART: Regular rate and rhythm. No clicks, rubs, murmurs, or gallops. LUNGS: Clear to auscultation bilaterally. ABDOMEN: Obese, soft, nontender, nondistended. No palpable hepatosplenomegaly. EXTREMITIES: Chronic lower extremity edema. Strength and pulses are equal in all 4 quadrants otherw ise. NEUROLOGICAL: She is awake, alert, and oriented x3. LABORATORY DATA: From 04/14/2021, WBC 9950, hemoglobin 14.5, platelet count 241,000. D-dimer 30,120 . Sodium 136, potassium 4.0, chloride 100, carbon dioxide 22, creatinine 2.04, BUN 38, alkaline phos phatase 142, albumin 2.6. IMPRESSION: 1. Acute hypoxic respiratory failure. 2. Metastatic colorectal cancer. 3. Acute renal injury. 4. Hypoalbuminemia. 5. Hypothyroidism. PLAN: It was my pleasure to visit with Verito at bedside. Verito has had a difficult course over the past month or so diagnosed with metastatic colorectal cancer and underwent palliative right hemicolec samir because of near obstruction, by Dr. Campbell on 03/13/2021. She has been slow to recover and hussein bsequently was readmitted a couple of days ago with hypoxia and general feeling of malaise. CT scan of the abdomen and pelvis revealed progressing mesenteric and retroperitoneal lymphadenopathy that wa s seen originally at diagnosis a month earlier. CEA level was now over 1000. Verito understands she suffers from stage IV colorectal cancer and thus cannot be cured. That said, she is amenable to rece rhea salvage chemotherapy. K-CARLOTA testing on the tumor needs to be done to allow for further targets t o be recommended when needed. A 20% of colorectal patients have PD-L1 avidity. Current standard is FOLFOX in conjunction with either bevacizumab or cetuximab if K-CARLOTA wild type. MediPort will be kyliee enrique and should make arrangements to have a device installed while in-house if possible. We will an ticipate seeing Verito as an outpatient in the next week or two. Questions and concerns were addresse d at bedside. Thank you very much for allowing me to participate in the care of this very pleasant patient. Job ID: [id number]
[2021-04-17] MEDS: ACETAMINOPHEN 500 MG TAB PO SCH ×3 (09:48→20:13)
[2021-04-17] MEDS: oxyCODONE HCL 10 MG TABCR (OxyCONTIN) PO SCH ×2 (12:21→20:12)
[2021-04-17] MEDS ORDERED: ALBUT/IPRATROP 3MG/0.5MG NEB 3 ML VIAL NEB SCH (15:00)
--- NOTE | 2021-04-17 16:23 | Hospitalist Progress Note ---
Date of Service April 17, 2021 Assessment & Plan (1) Abdominal pain: Plan: * Likely multifactorial (from splenic infarction and tumor burden) * No clinical evidence to suggest obstruction as patient is passing flatus * General surgery on boardappreciate recommendations * Continue OxyIR. We will add long-acting oxycodone for added pain control (2) Hypoxia: Plan: * Acute hypoxic respiratory failure no pulmonary emboli identified * Does have tree-in-bud formation with mucous plugging on exam with elevated procalcitonin * On cefepime for hospital-acquired pneumonia; however, with tree-in-bud form ation more concerned with atypical infectious process * I have ordered an MRSA nasal swab given patient's immunocompromised state; however, opacities on imaging do not appear dense as you would see with MRSA * I do believe she needs atypical coverage. Will add azithromycin * In addition, will add albuterol and Mucomyst for mucus plugging * Add Mucinex * Oxygen to be used as needed to keep pulse ox greater or equal to 92% * Sputum culture ordered * Blood culture ordered and no growth to date * BNP ordered and normal at 617. She does not clinically appear to be volume overloaded (3) Splenic infarction: Plan: * coagulation clinic recommends therapeutic anticoagulation for splenic infaction * Currently on Lovenox. Held this morning as thought patient would have Mediport. Spoke to Dr. Campbell and this will be done as an outpatient given active infection/pneumonia * Will obtain an echocardiogram to help rule out intracardiac thrombus as cause for splenic artery thrombus/filling defect * Likely contributing to abdominal pain (4) Acute kidney injury: Plan: Patient has CRISTI Creatinine normalized and cristi resolved (5) Adenocarcinoma of colon: Plan: s/p partial colectomy. there is evidence of bulky lymphadenopathy in abdomen and chest in some places pushing on vascular structure, CEA 186 08/, 1147 / (6) History of colectomy: Plan: as above. (7) Hypothyroidism: Plan: resume home meds (8) Irritable bowel syndrome: Plan: appears controlled. (9) Morbid obesity: Plan: recommend lifestyle recommendations BMI 43 (10) Asthma: Plan: No evidence of status asthmaticus (11) Chronic reflux esophagitis: Plan: RESUME PPI (12) Dyslipidemia: Plan: DIET CONTROLLED Plan: Plan of care to be discussed with Dr. Riley. Further orders as warranted. Admission and Anticipated Discharge Date Admission Date: April 14, 2021 Supervising Physician Co-Signing Physician Notes PA Supervision Note: I did not personally see or examine the patient today, but I verified all arizmendi points of CHACHA Guerra's assessment and plan with the following exceptions/additions: Patient here with stage IV metastatic colon cancer with abdominal pain, bronchiolitis, acute respiratory failure with hypoxia, and found to have small splenic infarct. Agree with addition of azithromycin for atypical pneumonia coverage, although there is possibility this could be secondary to lymphangitic spread of her cancer. Remains afebrile Repeat procalcitonin in the morning to see if trending downward -Pain control as above with adding on long-acting oxycodone -Checking echocardiogram to rule out intracardiac thrombus as cause of splenic infarct, however splenic infarct could be from hypercoagulable state from malignancy Continue with Oralia Appreciate surgery consultation-plan for Mediport as an outpatient within the next 2 weeks Follow-up with medical oncology after discharge Subjective Patient seen on daily rounds today. She is a 60-year-old white female with a relatively new diagnosis of colon cancer s/p hemicolectomy. Last hospitalized 03/10 through 03/23for bowel obstruction related to mass. Had hemicolectomy. Since being home, has had progressive weakness, dyspnea on exertion, nonproductive cough and just generally "has not felt great". In addition, has had some cold sweats. Saw her general surgeon in follow-up and looked unwell. She was sent to the ED. There she was found to have a pulse ox of 87% on room air with a normal white blood cell count. Her procalcitonin was elevated at 3.14. CT scan showed no evidence of PE but did show mucous plugging with tree-in-bud formation. She has been on cefepime (for hospital-acquired pneumonia). In addition, she had a CT of the abdomen and pelvis that showed a 2.5 cm splenic infarct which was new when compared to prior film. She had a filling defect in the splenic artery. In addition, several partial necrosis of nodes noted with numerous nodes compressing on the renal vein. Patient still with mild dyspnea with limited exertion (such as toileting and eating). Still having "cold sweats". Has not had any fever spikes. Initially was requiring 2 L of supplemental oxygen and is currently 92% on room air. Overall, generally feels ill. Still complaining of uncontrolled abdominal dis comfort that is generalized. Is on OxyIR without relief. She is passing flatus and having BMs. Denies nausea or vomiting. Review of Systems Review of Systems: All systems reviewed and are unremarkable except as noted in HPI and below Denies headache, nasal congestion, sore throat, cough, chest pain, shortness of breath, nausea, vomiting, dysuria, hematuria, frequency, skin lesions or rashes. Physical Exam Physical Exam: General: Resting in her hospital bed. Appears ill but not toxic. Neck: No JVD. Negative hepatojugular reflex Cardiac: RRR without M/G/R Lungs: Breathing comfortably on ambient air. No conversational dyspnea. End expiratory wheezes noted anteriorly. Posterior exam reveals scattered rhonchi throughout that mobilizes when she coughs. Negative egophony. Abdomen: Normoactive X4. Soft and tender in all quadrants Extremities: No peripheral clubbing cyanosis or edema Neuro: A&O X4 cranial nerves II through XII are grossly intact no focal neuro deficits Skin: No obvious skin lesions or rashes Results & Data Results & Data ([facility]) Vital Signs (Past 12 Hours) Vital Signs Temp Pulse Pulse Resp BP BP Pulse Ox 04/17/21 15:28 110 H 18 90 04/17/21 15:00 37.2 C 99 H 20 117/80 93 04/17/21 11:51 36.7 C 96 H 22 122/83 92 04/17/21 06:40 36.8 C 89 18 164/89 H 92 Laboratory Results 04/14/21 13:11 04/17/21 07:22 PG Care Time/CCT Total # of Minutes Spent Total Time Spent with Patient: Total time spent is greater than 50% in coordination of care (as documented) at patient's floor/unit and/or counseling patient: C[place] [address] Subseq Hosp Care Lvl 3 Patient Type Established Medical Decision Making High Complexity Diagnoses Hypoxia R09.02 Splenic infarction D73.5 Acute kidney injury N17.9 Adenocarcinoma of colon C18.9 History of colectomy Z90.49 Hypothyroidism E03.9 Irritable bowel syndrome K58.0 Irritable bowel syndrome type: with diarrhea Morbid obesity E66.01 Asthma J45.909 Chronic reflux esophagitis K21.0 Dyslipidemia E78.5 Abdominal pain R10.9 (1) Irritable bowel syndrome Irritable bowel syndrome type: with diarrhea Qualified Code(s): K58.0 - Irritable bowel syndrome with diarrhea
[2021-04-17] MEDS: AZITHROMYCIN 500 MG in DEXTROSE 5% 250 ML IV SCH (17:30)
[2021-04-17] MEDS: guaiFENesin 600 MG TABCR PO SCH (20:12)
[2021-04-17] MEDS: MONTELUKAST SODIUM 10 MG TABLET PO SCH (20:12)
[2021-04-17] MEDS: ENOXAPARIN 150 MG/ML SYR SQ SCH (20:14)
[2021-04-17] MEDS: ALBUTEROL 0.083% NEBU SOLN 3 ML VIAL NEB SCH (20:22)
[2021-04-17] MEDS: ACETYLCYSTEINE 10% INHAL SOLN 4 ML **DISPENSED BY RESP. INH SCH (20:22)
[2021-04-18] MEDS: ACETYLCYSTEINE 10% INHAL SOLN 4 ML **DISPENSED BY RESP. INH SCH ×2 (02:00→07:20)
[2021-04-18] MEDS: ALBUTEROL 0.083% NEBU SOLN 3 ML VIAL NEB SCH ×2 (02:01→07:20)
[2021-04-18] MEDS: CEFEPIME 2,000 MG in SYRINGE 0 ML IV SCH ×3 (05:04→21:30)
[2021-04-18] MEDS: LEVOTHYROXINE SODIUM 75 MCG TABLET PO SCH (05:05)
[2021-04-18] MEDS: oxyCODONE HCL IR 5 MG TAB (IMMEDIATE RELEASE) PO PRN ×2 (05:15→21:30)
[2021-04-18 08:01] LABS: Basophils # (auto) 0.02 K/uL (0-0.2); Basophils % (auto) 0.2 %; Eosinophils # (auto) 0.07 K/uL (0-0.5); Eosinophils % (auto) 0.7 %; Hematocrit (blood only) 41.1 % (37-47); Hemoglobin 13.4 g/dL (12.0-16.0); Immature Granulocytes # (auto) 0.28 K/uL (0.00-0.02); Immature Granulocytes % (auto) 2.8 %; Lymphocytes # (auto) 1.06 K/uL (1.2-3.4); Lymphocytes % (auto) 10.7 %; Mean Corpuscular Hemoglobin 28.1 pg (25-34); Mean Corpuscular Hgb Conc 32.6 g/dL (32-36); Mean Corpuscular Volume 86.2 fL (80-100); Monocytes # (auto) 0.57 K/uL (0.11-0.59); Monocytes % (auto) 5.7 %; Neutrophils # (auto) 7.93 K/uL (1.4-6.5); Neutrophils % (auto) 79.9 %; Platelet Count 175 K/uL (130-400); RDW Coefficient of Variation 15.5 % (11.5-14.5); RDW Standard Deviation 48.5 fL (36.4-46.3); Red Blood Count 4.77 M/uL (4.2-5.4); White Blood Count 9.93 K/uL (4.8-10.8)
[2021-04-18 08:27] LABS: Albumin Level 2.1 gm/dl (3.4-5.0); BUN Creatinine Ratio 30.1 (10-20); Creatinine Clr Calc Pharmacy 77.4 ml/min; Est GFR (African American) 62.1 ml/min; Est GFR (Non-African American) 53.6 ml/min; Magnesium 1.4 mg/dl (1.8-2.4); Potassium 4.5 mmol/L (3.5-5.1)
[2021-04-18 08:30] LABS: Albumin Globulin Ratio 0.5 (0.9-2); Bilirubin,Total 0.5 mg/dl (0.2-1); Globulin 4.1 gm/dl (2.5-4.0); Total Protein 6.2 gm/dl (6.4-8.2)
[2021-04-18] MEDS: ACETAMINOPHEN 500 MG TAB PO SCH (08:50)
[2021-04-18] MEDS: PANTOprazole 40 MG TAB PO SCH (08:51)
[2021-04-18] MEDS: amLODIPine BESYLATE 5 MG TAB PO SCH (08:51)
[2021-04-18] MEDS: CHOLECALCIFEROL 1,000 UNITS 25 MCG TAB PO SCH (08:51)
[2021-04-18] MEDS: guaiFENesin 600 MG TABCR PO SCH ×2 (08:51→20:20)
[2021-04-18] MEDS: FLUTICASONE PROPIONATE NA SPR 16 GM BTL SCH ×2 (08:52→20:21)
[2021-04-18] MEDS: LOSARTAN POTASSIUM 50 MG TAB PO SCH (08:52)
[2021-04-18] MEDS: MULTIVITAMIN TAB PO SCH (08:52)
[2021-04-18] MEDS: MAGNESIUM OXIDE 400 MG TAB PO SCH ×2 (08:53→20:20)
[2021-04-18] MEDS: ASPIRIN 81 MG ECTAB PO SCH (08:53)
[2021-04-18] MEDS: AZITHROMYCIN 500 MG in DEXTROSE 5% 250 ML IV SCH (09:08)
[2021-04-18] MEDS: oxyCODONE HCL 10 MG TABCR (OxyCONTIN) PO SCH ×2 (09:08→20:20)
[2021-04-18] MEDS: ENOXAPARIN 150 MG/ML SYR SQ SCH ×2 (10:05→20:20)
[2021-04-18] MEDS: MAGNESIUM SULFATE / D5W 1 GM/100 ML BAG IV SCH ×2 (12:18→14:28)
--- NOTE | 2021-04-18 13:42 | Hospitalist Progress Note ---
Date of Service April 18, 2021 Assessment & Plan (1) Abdominal pain: Plan: * Likely multifactorial (from splenic infarction and tumor burden) * I did have slight concern that patient may have developing abscess that was misinterpreted as infarction. I have called and spoke directly to the radiologist who looked at initial imaging and reassures me that findings are consistent with infarction. No fluid * Although patient does have persistent pain, it is improving. Would have a low threshold to repeat imaging should pain worsen, she develop fevers and/or leukocytosis (or generally just appears ill/declines). Patient having subjective fevers and chills with diaphoresis without documented fevers. She is on routine/scheduled Tylenol. We will stop this in case it is masking any fever spikes and continue to monitor. * No clinical evidence to suggest obstruction as patient is passing flatus * General surgery on boardappreciate recommendations * Continue long-acting oxycodone with OxyIR for breakthrough (2) Hypoxia: Plan: * Acute hypoxic respiratory failure no pulmonary emboli identified * Does have tree-in-bud formation with mucous plugging on exam with elevated procalcitonin * On cefepime for hospital-acquired pneumonia; however, with tree-in-bud formation more concerned with atypical infectious process * MRSA nasal swab done given patient's immunocompromised state (despite opaciti es on imaging note dense like you would expect with MRSA PNA)-- MRSA nasal swab negative * Azithromycin added for atypical coverage * significant improvement noted in adventitious breath sounds with Mucomyst and albuterol given over the past 24 hours. Will convert this to Duoneb scheduled x 24 hours then prn * continue mucolytic agent * Oxygen to be used as needed to keep pulse ox greater or equal to 92% * Sputum culture ordered * Blood culture ordered and no growth to date * BNP ordered and normal at 617. She does not clinically appear to be volume overloaded (3) Splenic infarction: Plan: * filling defect noted (of the splenic artery). coagulation clinic recommends therapeutic anticoagulation for splenic r * Currently on Lovenox. which was initially held with thought to proceed with Gordoport. Spoke to Dr. Campbell and this will be done as an outpatient given active infection/pneumonia * echo shows no evidence of intracardiac thrombus. 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 Hypercoagulable panel NOT obtained as would be fasley skewed in the setting of an active thrombus * spoke with radiology regarding concern for possible underlying abscess (radiologist looked at initial CT again and confirmed that this is infarction and not misinterpretation-- not an abscess). * goal is pain control-- continue long acting oxycodone with prn oxyIR (4) Acute kidney injury: Plan: Patient has CRISTI Creatinine normalized and cristi resolved (5) Adenocarcinoma of colon: Plan: * s/p partial colectomy. there is evidence of bulky lymphadenopathy in abdomen and chest in some places pushing on vascular structure * tumor burden likely contributing to abd pain. * CEA 186 03/10, 1147 04/16 * oncology on board and will follow patient as an OP (to start chemotherapy). Oncology requesting Mediport sooner rather than later as to facilitate starting chemo. Again, surgery has not plans to do this at this time given active PNA. Plan (per general surgery) is for this to be done within 2 weeks (6) History of colectomy: Plan: as above. (7) Hypothyroidism: Plan: resume home meds (8) Irritable bowel syndrome: Plan: appears controlled. (9) Morbid obesity: Plan: recommend lifestyle recommendations BMI 43 (10) Asthma: Plan: No evidence of status asthmaticus (11) Chronic reflux esophagitis: Plan: RESUME PPI (12) Dyslipidemia: Plan: DIET CONTROLLED (13) Hypomagnesemia: Plan: Magnesium low at 1.4 today Replaced with increased dose of p.o. magnesium oxide as well as IV magnesium sulfate Follow level in the morning Plan: Plan of care to be discussed with Dr. Riley. Further orders as warranted. Admission and Anticipated Discharge Date Admission Date: April 14, 2021 Supervising Physician Co-Signing Physician Notes CHACHA Supervision Note: I did not personally see or examine the patient today, but I verified all arizmendi points of CHACHA Guerra's assessment and plan with the following excep tions/additions: Patient here with stage IV metastatic colon cancer with abdominal pain, bronchiolitis, acute respiratory failure with hypoxia, and found to have small splenic infarct. Continue cefepime for possible gram-negative pneumonia and azithromycin for atypical pneumonia coverage, although there is possibility her pulmonary issues could be secondary to lymphangitic spread of her cancer. Remains afebrile but having sweats-make Tylenol only as needed rather than scheduled to see if has a fever Repeat procalcitonin today is starting to trend downward -Pain control as above with adding on long-acting oxycodone - echocardiogram without intracardiac thrombus as cause of splenic infarct, however splenic infarct could be from hypercoagulable state from malignancy Continue with Lovenox therapeutic dosing indefinitely Appreciate surgery consultation-plan for Mediport as an outpatient within the next 2 weeks Follow-up with medical oncology after discharge Subjective Patient seen on daily rounds today. Overall, continues to remain ill but "better" in comparison to yesterday. Regarding her PNA: Azithromycin added along with scheduled neb treatments (mucomyst and albuterol). Cough has improved. Denies SOB. Still with minimal (but improved) BLACKBURN--> such as toileting. Her MRSA nasal swab was negative and her repeat Covid test negative. Still having subjective fevers/chills and "breaking out into sweats" but not documented fevers. Regarding her abd pain: This is still present and severe this am. Placed on long acting Oxycodone yesterday and patient reports that this really helped with pain control; however, this morning is due for this medication (hasn't yet received it) and her pain has increased (currently 10/10). Denies N/V. Is passing flatus and having BM's. Review of Systems Review of Systems: All systems reviewed and are unremarkable except as noted in HPI and below + subjective F/C, BLACKBURN, abd pain. Denies fevers, chills, headache, nasal congestion, sore throat, cough (now resolved), chest pain, shortness of breath, nausea, vomiting, dysuria, hematuria, frequency, skin lesions or rashes. Physical Exam Physical Exam: General: Although patient complaining of pain, appears much more comfortable today. Does seem diaphoretic. Appears mildly ill but not toxic. Neck: No JVD. Negative hepatojugular reflex Cardiac: RRR without M/G/R Lungs:breathing comfortably on ambient air. significantly improved air exchange throughout without W/R/R today. Negative egophony. Abdomen: Normoactive X4. Nondistended. exquisitely tender in the LUQ/epigastric region and referred pain to the upper quadrants with palpation of the R/LLQ Extremities: No peripheral clubbing cyanosis or edema Neuro: A&O X4 cranial nerves II through XII are grossly intact no focal neuro deficits Skin: No obvious skin lesions or rashes Results & Data Results & Data ([facility]) Vital Signs (Past 12 Hours) Vital Signs Temp Pulse Pulse Resp BP Pulse Ox 04/18/21 11:00 36.7 C 90 20 117/79 95 04/18/21 07:22 89 18 95 04/18/21 07:00 36.8 C 90 77 20 124/86 94 04/18/21 03:00 36.8 C 89 18 131/79 93 Laboratory Results 04/18/21 07:42 04/18/21 07:42 MRSA nasal swab: Negative Repeat Covid test: Negative Magnesium: 1.4 PG Care Time/CCT Total # of Minutes Spent Total Time Spent with Patient: Total time spent is greater than 50% in coordination of care (as documented) at patient's floor/unit and/or counseling patient: Coding [place] [address] Subseq Hosp Care Lvl 2 Patient Type Established Diagnoses Abdominal pain R10.9 Hypoxia R09.02 Splenic infarction D73.5 Acute kidney injury N17.9 Adenocarcinoma of colon C18.9 History of colectomy Z90.49 Hypothyroidism E03.9 Irritable bowel syndrome K58.0 Irritable bowel syndrome type: with diarrhea Morbid obesity E66.01 Asthma J45.909 Chronic reflux esophagitis K21.0 Dyslipidemia E78.5 Hypomagnesemia E83.42 (1) Irritable bowel syndrome Irritable bowel syndrome type: with diarrhea Qualified Code(s): K58.0 - Irritable bowel syndrome with diarrhea
[2021-04-18] MEDS: ALBUT/IPRATROP 3MG/0.5MG NEB 3 ML VIAL NEB SCH ×2 (15:23→19:53)
[2021-04-18] MEDS: ACETAMINOPHEN 500 MG TAB PO PRN ×2 (15:46→21:30)
[2021-04-18] MEDS: MONTELUKAST SODIUM 10 MG TABLET PO SCH (20:20)
[2021-04-18] MEDS: ONDANSETRON 8MG OD TAB PO PRN (21:31)
[2021-04-19] MEDS: CEFEPIME 2,000 MG in SYRINGE 0 ML IV SCH ×3 (05:33→21:08)
[2021-04-19] MEDS: oxyCODONE HCL IR 5 MG TAB (IMMEDIATE RELEASE) PO PRN ×3 (05:33→23:45)
[2021-04-19] MEDS: LEVOTHYROXINE SODIUM 75 MCG TABLET PO SCH (05:33)
[2021-04-19] MEDS: ALBUT/IPRATROP 3MG/0.5MG NEB 3 ML VIAL NEB SCH ×4 (07:16→19:35)
[2021-04-19] MEDS: oxyCODONE HCL 10 MG TABCR (OxyCONTIN) PO SCH ×2 (08:03→21:06)
[2021-04-19] MEDS: ONDANSETRON 8MG OD TAB PO PRN (08:04)
[2021-04-19] MEDS: ACETAMINOPHEN 500 MG TAB PO PRN (08:04)
[2021-04-19] MEDS: CHOLECALCIFEROL 1,000 UNITS 25 MCG TAB PO SCH (08:05)
[2021-04-19] MEDS: guaiFENesin 600 MG TABCR PO SCH ×2 (08:05→21:06)
[2021-04-19] MEDS: MAGNESIUM OXIDE 400 MG TAB PO SCH ×2 (08:05→21:07)
[2021-04-19] MEDS: FLUTICASONE PROPIONATE NA SPR 16 GM BTL SCH ×2 (08:06→21:07)
[2021-04-19] MEDS: ENOXAPARIN 150 MG/ML SYR SQ SCH ×2 (08:06→21:07)
[2021-04-19] MEDS: MULTIVITAMIN TAB PO SCH (08:06)
[2021-04-19] MEDS: amLODIPine BESYLATE 5 MG TAB PO SCH (08:06)
[2021-04-19] MEDS: LOSARTAN POTASSIUM 50 MG TAB PO SCH (08:06)
[2021-04-19] MEDS: ASPIRIN 81 MG ECTAB PO SCH (08:06)
[2021-04-19] MEDS: PANTOprazole 40 MG TAB PO SCH (08:09)
[2021-04-19] MEDS: AZITHROMYCIN 500 MG in DEXTROSE 5% 250 ML IV SCH (08:10)
[2021-04-19 08:18] LABS: Basophils # (auto) 0.01 K/uL (0-0.2); Basophils % (auto) 0.1 %; Eosinophils # (auto) 0.11 K/uL (0-0.5); Eosinophils % (auto) 1.1 %; Hematocrit (blood only) 43.2 % (37-47); Hemoglobin 14.2 g/dL (12.0-16.0); Immature Granulocytes # (auto) 0.22 K/uL (0.00-0.02); Immature Granulocytes % (auto) 2.2 %; Lymphocytes % (auto) 10.9 %; Mean Corpuscular Hemoglobin 28.9 pg (25-34); Mean Corpuscular Hgb Conc 32.9 g/dL (32-36); Mean Corpuscular Volume 87.8 fL (80-100); Mean Platelet Volume 10.7 fL (7.4-10.4); Monocytes # (auto) 0.59 K/uL (0.11-0.59); Monocytes % (auto) 5.8 %; Neutrophils # (auto) 8.08 K/uL (1.4-6.5); Neutrophils % (auto) 79.9 %; Nucleated RBC # (auto) 0.02 K/uL (0-0); Nucleated RBC % (auto) 0.2 %; Platelet Count 184 K/uL (130-400); RDW Coefficient of Variation 15.6 % (11.5-14.5); RDW Standard Deviation 49.8 fL (36.4-46.3); Red Blood Count 4.92 M/uL (4.2-5.4); White Blood Count 10.11 K/uL (4.8-10.8)
[2021-04-19 08:50] LABS: Albumin Globulin Ratio 0.5 (0.9-2); Albumin Level 2.2 gm/dl (3.4-5.0); BUN Creatinine Ratio 34.8 (10-20); Bilirubin,Total 0.4 mg/dl (0.2-1); Creatinine Clr Calc Pharmacy 80.1 ml/min; Est GFR (African American) 64.9 ml/min; Globulin 4.2 gm/dl (2.5-4.0); Magnesium 2.2 mg/dl (1.8-2.4); Potassium 4.4 mmol/L (3.5-5.1); Total Protein 6.4 gm/dl (6.4-8.2)
[2021-04-19] MEDS: HYDROmorphone INJ 0.5 MG/0.5 ML SYR IV PRN ×2 (12:39→17:45)
--- NOTE | 2021-04-19 12:42 | Hospitalist Progress Note ---
Date of Service April 19, 2021 Assessment & Plan (1) Abdominal pain: Plan: * Likely multifactorial (from splenic infarction and tumor burden) * Patient continues with considerable pain. Little improvement with oxycodone. This was improved somewhat with Dilaudid 1/2 mg IV * KUB ordered and shows no evidence of obstruction. * General surgery consulted.No intervention at this time. Concern is for pain secondary to tumor burden. * Continue long-acting oxycodone with OxyIR for breakthrough as well as hydromorphone IV for severe pain. Patient seen in consultation by Dr. Dawn from oncology. She understands that the cancer is not curable but that chemotherapy may be used for palliation. We will need Mediport in order to provide salvage chemotherapy At this time patient will need to be cleared of all infection including possible pneumonia in order to safely place in a port. Continue supportive care at this time. (2) Hypoxia: Plan: * Acute hypoxic respiratory failure no pulmonary emboli identified * CT chest reviewed from 04/14/2021. Patient does have tree-in-bud appearance. Minimal mucous plugging. No evidence of bronchiectasis. Possible pneumonitis but no clear consolidation or infiltrate. * Concern for lymphangitic spread. Unable to provide salvage chemotherapy until a port is placed. Continue supportive care. * On cefepime for hospital-acquired pneumonia; however, with tree-in-bud formation more concerned with atypical infectious process * MRSA nasal swab negative * Continue cefepime and azithromycin for now. Procalcitonin was elevated. We will treat with a minimum of 7 days for pneumonitis * Good air exchange today. Did receive acetylcysteine. Continue with duo nebs for pulmonary toileting. Continue Mucinex * Sputum culture with moderate normal ronit * Blood culture no growth to date x2 samples * BNP ordered and normal at 617. She does not clinically appear to be volume overloaded * This could all be secondary to abdominal pain and poor inspirational effort. We will start incentive spirometry. 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 coagulation clinic recommends therapeutic anticoagulation for splenic infarct * Currently on Lovenox at therapeutic doses of 1 mg/kg twice daily. which was initially held with thought to proceed with Mediport. Spoke to Dr. Campbell and this will be done as an outpatient given active infection/pneumonia * echo shows no evidence of intracardiac thrombus. 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 Hypercoagulable panel NOT obtained as would be falsely skewed in the setting of an active thrombus * spoke with radiology regarding concern for possible underlying abscess (radiologist looked at initial CT again and confirmed that this is infarction and not misinterpretation-- not an abscess). * goal is pain control-- continue long acting oxycodone with prn oxyIR * Continue hydromorphone IV for severe pain (4) Acute kidney injury: Plan: Resolved. Creatinine 1.07 (5) Adenocarcinoma of colon: Plan: * s/p partial colectomy. there is evidence of bulky lymphadenopathy in abdomen and chest in some places pushing on vascular structure * tumor burden likely contributing to abd pain. * CEA 186 03/10, 1147 04/16 * oncology on board and will follow patient as an OP (to start chemotherapy). Oncology requesting Mediport sooner rather than later as to facilitate starting chemo. Again, surgery has not plans to do this at this time given active PNA. Plan (per general surgery) is for this to be done within 2 weeks (6) History of colectomy: Plan: as above. (7) Hypothyroidism: Plan: Continue home levothyroxine (8) Irritable bowel syndrome: Plan: appears controlled. (9) Morbid obesity: Plan: recommend lifestyle recommendations BMI 43 (10) Asthma: Plan: No evidence of status asthmaticus Continues on scheduled duo nebs (11) Chronic reflux esophagitis: Plan: Continue PPI (12) Dyslipidemia: Plan: Diet controlled, not on medications (13) Hypomagnesemia: Plan: Magnesium low at 1.4 04/18/2021 Replaced with increased dose of p.o. magnesium oxide as well as IV magnesium sulfate Magnesium now repleted and within normal limits at 2.2 Plan: Plan of care to be discussed with Dr. Riley. Further orders as warranted. Admission and Anticipated Discharge Date Admission Date: April 14, 2021 Supervising Physician Co-Signing Physician Notes PA Supervision Note: I did not personally see or examine the patient today, but I verified all arizmendi points of CHACHA Lopez's assessment and plan with the following exceptions/additions: Patient here with stage IV metastatic colon cancer with abdominal pain, bronchiolitis, acute respiratory failure with hypoxia, and found to have small splenic infarct. Continue cefepime for possible gram-negative pneumonia and azithromycin for atypical pneumonia coverage, although there is possibility her pulmonary issues could be secondary to lymphangitic spread of her cancer. Pulmonary status seems to be improving -Pain control as above with adding on long-acting oxycodone, continuing oxycodone IR for breakthrough pain and IV Dilaudid for severe breakthrough pain - echocardiogram without intracardiac thrombus as cause of splenic infarct, however splenic infarct could be from hypercoagulable state from malignancy Continue with Lovenox therapeutic dosing indefinitely Appreciate surgery consultation-plan for Mediport as an outpatient within the next 2 weeks Follow-up with medical oncology after discharge Subjective Patient seen and examined at bedside. Acute, exquisite pain just below the umbilicus. Patient is having some nausea but no vomiting. No bowel movement today. She did have a bowel movement yesterday. She did receive oral analgesia. Will administer 1/2 mg of Dilaudid IV. She denies any chest pain or tightness. No shortness of breath. She denies fever but does have hot flashes and some chills. No sweats or rigors. No lower extremity pain. No other acute complaints. Review of Systems Review of Systems: All systems reviewed & are unremarkable except as noted in Subjective Physical Exam Physical Exam: GENERAL : Moderate distress. EYES: No icterus, gaze conjugate NOSE: No evidence of epistaxis MOUTH: No lesions or candidiasis. Mucosa moist NECK: Supple LUNGS: CTA B/L, no wheezes, rales or rhonchi HEART: Regular, tachycardic in the low 100s ABDOMEN: Soft, ND, soft, BS Present. Patient positive for guarding. Painful to light palpation just below the umbilicus. Some pain with deep palpation in the right upper quadrant. EXTREMITIES: No LE edema, pedal pulses intact and equal bilaterally NEURO: A&OX3 Results & Data Results & Data ([facility]) Vital Signs (Past 12 Hours) Vital Signs Temp Pulse Resp BP Pulse Ox 04/19/21 10:35 95 H 18 95 04/19/21 08:00 36.6 C 88 20 122/82 93 04/19/21 07:17 94 H 20 95 Laboratory Results 04/19/21 07:49 04/19/21 07:49 Microbiology 04/17/21 20:56 Gram Stain - Final Sputum, Expectorated Sputum Culture - Final Moderate normal ronit. Diagnostic Findings KUB pending Medications Administered Current Inpatient Medications Acetaminophen (Acetaminophen 500 Mg Tab) 1,000 mg PO TID PRN PRN Reason: pain Stop: 05/15/21 20:59 Last Admin: 04/19/21 08:04 Dose: 1,000 mg Documented by: Albuterol (Albut/Ipratrop 3mg/0.5mg Neb 3 Ml Vial) 3 ml NEB QIDR [facility] Stop: 05/18/21 14:59 Last Admin: 04/19/21 10:35 Dose: 3 ml Documented by: Amlodipine Besylate (Amlodipine Besylate 5 Mg Tab) 5 mg PO QAM [facility] Stop: 05/15/21 08:59 Last Admin: 04/19/21 08:06 Dose: 5 mg Documented by: Aspirin (Aspirin 81 Mg Ectab) 81 mg PO QAM [facility] Stop: 05/15/21 08:59 Last Admin: 04/19/21 08:06 Dose: 81 mg Documented by: Enoxaparin Sodium (Enoxaparin 150 Mg/Ml Syr) 129 mg SQ BID [facility] Stop: 05/16/21 14:59 Last Admin: 04/19/21 08:06 Dose: 129 mg Documented by: Fluticasone Propionate (Fluticasone Propionate Na Spr 16 Gm Btl) 2 sprays NA BID [facility] Stop: 05/14/21 20:59 Last Admin: 04/19/21 08:06 Dose: 2 sprays Documented by: Guaifenesin (Guaifenesin 600 Mg Tabcr) 600 mg PO Q12 [facility] Stop: 05/17/21 20:59 Last Admin: 04/19/21 08:05 Dose: 600 mg Documented by: Hydromorphone HCl (Hydromorphone Inj 0.5 Mg/0.5 Ml Syr) 0.5 mg IV Q4H PRN PRN Reason: Pain5-05/17 Stop: 04/29/21 16:04 Last Admin: 04/19/21 12:39 Dose: 0.5 mg Documented by: Cefepime HCl 2,000 mg/ Syringe 20 mls @ 5 mls/min IV Q8H [facility]; Protocol Stop: 04/21/21 15:59 Last Admin: 04/19/21 05:33 Dose: 5 mls/min Documented by: Azithromycin 500 mg/ Dextrose 255 mls @ 125 mls/hr IV DAILY [facility] Stop: 04/24/21 16:59 Last Infusion: 04/19/21 10:15 Dose: Infused Documented by: Levothyroxine Sodium (Levothyroxine Sodium 75 Mcg Tablet) 75 mcg PO DAILYBB [facility] Stop: 05/15/21 06:29 Last Admin: 04/19/21 05:33 Dose: 75 mcg Documented by: Losartan Potassium (Losartan Potassium 50 Mg Tab) 100 mg PO QAM [facility] Stop: 05/15/21 08:59 Last Admin: 04/19/21 08:06 Dose: 100 mg Documented by: Magnesium Oxide (Magnesium Oxide 400 Mg Tab) 800 mg PO BID [facility] Stop: 05/18/21 20:59 Last Admin: 04/19/21 08:05 Dose: 800 mg Documented by: Miscellaneous (Ipratropium Intranasal 0.03%~Order Awaiting Action) 1 ea N/A QS [facility] Stop: 05/15/21 00:00 Last Admin: 04/19/21 08:11 Dose: Not Given Documented by: Montelukast Sodium (Montelukast Sodium 10 Mg Tablet) 10 mg PO QPM [facility] Stop: 05/14/21 20:59 Last Admin: 04/18/21 20:20 Dose: 10 mg Documented by: Multivitamins ([facility]ivitamin Tab) [facility] [place]: 05/15/21 08:59 Last Admin: 04/19/21 08:06 Dose: 1 tab Documented by: Ondansetron HCl (Ondansetron 8mg Od Tab) 8 mg PO Q8H PRN PRN Reason: nausea and vomiting Stop: 05/14/21 16:15 Last Admin: 04/19/21 08:04 Dose: 8 mg Documented by: Oxycodone HCl (Oxycodone Hcl Ir 5 Mg Tab (Immediate Release)) 10 mg PO Q6H PRN PRN Reason: Moderate Pain 4-6/10 Stop: 04/29/21 16:04 Last Admin: 04/19/21 12:31 Dose: 10 mg Documented by: Oxycodone HCl (Oxycodone Hcl 10 Mg Tabcr (Oxycontin)) 10 mg PO Q12 [facility] Stop: 05/01/21 11:14 Last Admin: 04/19/21 08:03 Dose: 10 mg Documented by: Pantoprazole Sodium (Pantoprazole 40 Mg Tab) 40 mg PO QAM [facility]; Protocol Stop: 05/15/21 08:59 Last Admin: 04/19/21 08:09 Dose: 40 mg Documented by: Vitamin D (Cholecalciferol 1,000 Units 25 Mcg Tab) 2,000 units PO QAM [facility] Stop: 05/15/21 08:59 Last Admin: 04/19/21 08:05 Dose: 2,000 units Documented by: PG Care Time/CCT Total # of Minutes Spent Total Time Spent with Patient: Total time spent is greater than 50% in coordination of care (as documented) at patient's floor/unit and/or counseling patient: Coding Level of Care Code 43779 Subseq Hosp Care Lvl 2 Diagnoses Abdominal pain R10.9 Hypoxia R09.02 Splenic infarction D73.5 Acute kidney injury N17.9 Adenocarcinoma of colon C18.9 History of colectomy Z90.49 Hypothyroidism E03.9 Irritable bowel syndrome K58.0 Irritable bowel syndrome type: with diarrhea Morbid obesity E66.01 Asthma J45.909 Chronic reflux esophagitis K21.0 Dyslipidemia E78.5 Hypomagnesemia E83.42 (1) Irritable bowel syndrome Irritable bowel syndrome type: with diarrhea Qualified Code(s): K58.0 - Irritable bowel syndrome with diarrhea
--- NOTE | 2021-04-19 13:44 | XRay Report ---
KUB HISTORY: Generalized abdominal pain. COMPARISON: Abdomen and pelvis CT 04/14/2021. FINDINGS: Prior cholecystectomy. There are few nondilated gas-filled loops of large and small bowel s een throughout the abdomen. No evidence for bowel obstruction. No renal calculi. No ureteral calculi . No pneumoperitoneum or pneumatosis. IMPRESSION: No evidence for bowel obstruction. ACT 112: Negative or not required by law. Electronically signed by: Mahin Roldan M.D. 04/19/2021 1:43 PM
[2021-04-19] MEDS: MONTELUKAST SODIUM 10 MG TABLET PO SCH (21:06)
[2021-04-20] MEDS: LEVOTHYROXINE SODIUM 75 MCG TABLET PO SCH (06:08)
[2021-04-20] MEDS: oxyCODONE HCL IR 5 MG TAB (IMMEDIATE RELEASE) PO PRN (06:08)
[2021-04-20] MEDS: CEFEPIME 2,000 MG in SYRINGE 0 ML IV SCH (06:09)
[2021-04-20 08:18] LABS: Basophils # (auto) 0.03 K/uL (0-0.2); Basophils % (auto) 0.3 %; Eosinophils # (auto) 0.07 K/uL (0-0.5); Eosinophils % (auto) 0.7 %; Hematocrit (blood only) 40.8 % (37-47); Hemoglobin 13.1 g/dL (12.0-16.0); Immature Granulocytes # (auto) 0.34 K/uL (0.00-0.02); Immature Granulocytes % (auto) 3.3 %; Lymphocytes # (auto) 0.79 K/uL (1.2-3.4); Lymphocytes % (auto) 7.6 %; Mean Corpuscular Hemoglobin 27.6 pg (25-34); Mean Corpuscular Hgb Conc 32.1 g/dL (32-36); Mean Corpuscular Volume 86.1 fL (80-100); Mean Platelet Volume 10.5 fL (7.4-10.4); Monocytes # (auto) 0.57 K/uL (0.11-0.59); Monocytes % (auto) 5.5 %; Neutrophils # (auto) 8.62 K/uL (1.4-6.5); Neutrophils % (auto) 82.6 %; Platelet Count 193 K/uL (130-400); RDW Coefficient of Variation 15.7 % (11.5-14.5); RDW Standard Deviation 48.4 fL (36.4-46.3); Red Blood Count 4.74 M/uL (4.2-5.4); White Blood Count 10.42 K/uL (4.8-10.8)
[2021-04-20] MEDS: AZITHROMYCIN 500 MG in DEXTROSE 5% 250 ML IV SCH (08:42)
[2021-04-20 08:45] LABS: Albumin Level 2.1 gm/dl (3.4-5.0); BUN Creatinine Ratio 38.1 (10-20); Bilirubin Direct 0.2 mg/dl (0-0.2); Calcium 9.4 mg/dl (8.5-10.1); Creatinine Clr Calc Pharmacy 80.8 ml/min; Est GFR (African American) 65.6 ml/min; Est GFR (Non-African American) 56.6 ml/min; Potassium 4.9 mmol/L (3.5-5.1)
[2021-04-20] MEDS: ALBUT/IPRATROP 3MG/0.5MG NEB 3 ML VIAL NEB SCH ×2 (08:46→10:59)
[2021-04-20 08:48] LABS: Bilirubin,Total 0.5 mg/dl (0.2-1); Total Protein 6.3 gm/dl (6.4-8.2)
[2021-04-20] MEDS ORDERED: ENOXAPARIN 150 MG/ML SYR SQ SCH (09:00)
[2021-04-20] MEDS: oxyCODONE HCL 10 MG TABCR (OxyCONTIN) PO SCH ×2 (09:11→21:42)
[2021-04-20] MEDS: amLODIPine BESYLATE 5 MG TAB PO SCH (09:13)
[2021-04-20] MEDS: CHOLECALCIFEROL 1,000 UNITS 25 MCG TAB PO SCH (09:13)
[2021-04-20] MEDS: ENOXAPARIN 150 MG/ML SYR SQ SCH ×2 (09:13→21:35)
[2021-04-20] MEDS: ASPIRIN 81 MG ECTAB PO SCH (09:13)
[2021-04-20] MEDS: FLUTICASONE PROPIONATE NA SPR 16 GM BTL SCH ×2 (09:15→21:35)
[2021-04-20] MEDS: guaiFENesin 600 MG TABCR PO SCH ×2 (09:15→21:37)
[2021-04-20] MEDS: LOSARTAN POTASSIUM 50 MG TAB PO SCH (09:15)
[2021-04-20] MEDS: MULTIVITAMIN TAB PO SCH (09:16)
[2021-04-20] MEDS: PANTOprazole 40 MG TAB PO SCH (09:16)
[2021-04-20] MEDS: MAGNESIUM OXIDE 400 MG TAB PO SCH ×2 (09:16→21:38)
[2021-04-20] MEDS ORDERED: POLYETHYLENE (MIRALAX) 17 GM PACK PO PRN (11:49)
[2021-04-20] MEDS ORDERED: ALBUT/IPRATROP 3MG/0.5MG NEB 3 ML VIAL NEB PRN (11:53)
--- NOTE | 2021-04-20 13:34 | Hospitalist Progress Note ---
Date of Service April 20, 2021 Assessment & Plan (1) Debility: Plan: * Patient with 2 lengthy hospitalizations resulting in severe debility. * (Hospitalized 04/06 through 03/23 for bowel obstruction resulting in hemicolectomy from colon CA. Readmitted 04/14) * PT/OT on board-- spoke with OT who is suggesting acute rehab. Patient agreeable * consult case mgmt. (2) Abdominal pain: Plan: * Likely multifactorial (from splenic infarction and tumor burden) * Pain controlled with current pain regimen (long-acting oxycodone with OxyIR for breakthrough) * KUB done 04/19 showing no evidence of obstruction * General surgery consulted.No intervention at this time. * Patient seen in consultation by Dr. Dawn from oncology. She understands that the cancer is not curable but that chemotherapy may be used for palliation. * will need Mediport in order to provide salvage chemotherapy * At this time patient will need to be cleared of all infection including possible pneumonia in order to safely place in a port. * Continue supportive care at this time. (3) Hypoxia: Plan: * Acute hypoxic respiratory failure no pulmonary emboli identified * CT chest reviewed from 04/14/2021. Patient does have tree-in-bud appearance. Minimal mucous plugging. No evidence of bronchiectasis. Possible pneumonitis but no clear consolidation or infiltrate. * Concern for lymphangitic spread. Unable to provide salvage chemotherapy until a port is placed. Continue supportive care. * MRSA nasal swab negative * Patient on cefepime for antipseudomonal coverage given recent hospitalization. Azithromycin had been added for atypical coverage given tree-in-bud formation noted. She is no longer requiring supplemental oxygen, has remained afebrile without leukocytosis, and her pulmonary exam has significantly improved. We will de-escalate and change to Augmentin with continued azithromycin * Did receive Mucomyst for associated mucous plugging. * Sputum culture showing only normal ronit * Blood culture showing no growthx5 days * Continue mucolytic agents along with incentive spirometry (4) Splenic infarction: Plan: * filling defect noted (of the splenic artery). coagulation clinic recommends therapeutic anticoagulation for splenic infarct * Currently on Lovenox at therapeutic doses of 1 mg/kg twice daily. which was initially held with thought to proceed with Mediport. Spoke to Dr. Campbell and this will be done as an outpatient given active infection/pneumonia * echo shows no evidence of intracardiac thrombus. Did show concern for atrial septal aneurysm. Case discussed with cardiology who is recommending no further evaluation as treatment would be anticoagulation therapy (for which patient is already on). 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 Hypercoagulable panel NOT obtained as would be falsely skewed in the setting of an active thrombus * spoke with radiology regarding concern for possible underlying abscess (radiologist looked at initial CT again and confirmed that this is infarction and not misinterpretation-- not an abscess). * Abdominal pain seems to be controlled with pain regimen on board * Given plan for Mediport in the upcoming weeks, plan would be to discharge with treatment dose Lovenox (as to avoid necessary postponing of Mediport insertion for bridge therapy). Once Mediport placed, can transition to DOAC (did discuss this plan with Dr. Campbell-- who plans on mediport insertion) (5) Acute kidney injury: Plan: Resolved. Creatinine 2.04 upon presentation. (2.04--> 1.20--> 0.92--> 1.11--> 10.7--> 1.06) (6) Adenocarcinoma of colon: Plan: * s/p partial colectomy. there is evidence of bulky lymphadenopathy in abdomen and chest (with partial necrosis) in some places pushing on vascular structure * tumor burden likely contributing to abd pain. * CEA 186 on 03/10, 1147 on 04/16 * oncology on board and will follow patient as an OP (to start chemotherapy). Oncology requesting Mediport sooner rather than later as to facilitate starting chemo. Again, surgery has not plans to do this at this time given active PNA. Plan (per general surgery) is for this to be done within 2 weeks (7) History of colectomy: Plan: as above. (8) Hypothyroidism: Plan: Continue home levothyroxine (9) Irritable bowel syndrome: Plan: appears controlled. (10) Morbid obesity: Plan: recommend lifestyle recommendations BMI 43 (11) Asthma: Plan: No evidence of status asthmaticus Continues on scheduled duo nebs (12) Chronic reflux esophagitis: Plan: Continue PPI (13) Dyslipidemia: Plan: Diet controlled, not on medications (14) Hypomagnesemia: Plan: Magnesium low at 1.4 04/18/2021 Replaced and resolved with increased dose of p.o. magnesium oxide as well as IV magnesium sulfate (now 2.2) Plan: Plan of care to be discussed with Dr. Bowie. Further orders as warranted. Admission and Anticipated Discharge Date Admission Date: April 14, 2021 Subjective Patient seen on daily rounds today. Feeling "terrible". Denies F/C, CP, SOB, or cough. Her abd pain is controlled with the long active oxycodone with OxyIR for breakthrough. She denies N/V, Is passing gas. No BM yesterday or today. KUB done showing no evidence of SBO. When asked spefically why she is feeling terrible since she is no longer having respiratory complaints and no longer requiring supplemental O2 and her abd pain is controlled-- she reports that she is "just so weak". PT saw patient yesterday and she was able to get to the chair but couldn't sit long bc she was "so weak". Review of Systems Review of Systems: All systems reviewed and are unremarkable except as noted in HPI and below c/o profound weakness. Denies fevers, chills, headache, nasal congestion, sore throat, cough, chest pain, shortness of breath, abdominal pain, nausea, vomiting, dysuria, hematuria, frequency, skin lesions or rashes. Physical Exam Physical Exam: General: Resting comfortably in her hospital bed. Appears overly malaised but not ill or toxic NAD. Neck: No JVD. Negative hepatojugular reflex Cardiac: RRR with distant heart sounds Lungs: Breathing comfortably on ambient air. No conversational dyspnea. Improved air exchange throughout. Clear to auscultation without wheezes, rales or rhonchi Abdomen: Normoactive X4. Soft. Mildly tender in all quadrants with palpation Extremities: No peripheral clubbing cyanosis or edema Neuro: A&O X4 cranial nerves II through XII are grossly intact no focal neuro deficits Skin: No obvious skin lesions or rashes Results & Data Results & Data ([facility]) Vital Signs (Past 12 Hours) Vital Signs Temp Pulse Resp BP BP Pulse Ox 04/20/21 12:00 36.4 C L 96 H 19 126/86 95 04/20/21 11:00 99 H 18 94 04/20/21 08:48 105 H 18 93 04/20/21 08:18 37.0 C 104 H 20 126/90 90 04/20/21 04:56 36.7 C 104 H 18 120/85 90 Laboratory Results 04/20/21 07:54 04/20/21 07:54 PG Care Time/CCT Total # of Minutes Spent Total Time Spent with Patient: Total time spent is greater than 50% in coordination of care (as documented) at patient's floor/unit and/or counseling patient: Coding [place] [address] Subseq Hosp Care Lvl 2 Patient Type Established History Expanded Problem Focused Exam Expanded Problem Focused Medical Decision Making Moderate Complexity Diagnoses Abdominal pain R10.9 Hypoxia R09.02 Splenic infarction D73.5 Acute kidney injury N17.9 Adenocarcinoma of colon C18.9 History of colectomy Z90.49 Hypothyroidism E03.9 Irritable bowel syndrome K58.0 Irritable bowel syndrome type: with diarrhea Morbid obesity E66.01 Asthma J45.909 Chronic reflux esophagitis K21.0 Dyslipidemia E78.5 Hypomagnesemia E83.42 Debility R53.81 (1) Irritable bowel syndrome Irritable bowel syndrome type: with diarrhea Qualified Code(s): K58.0 - Irritable bowel syndrome with diarrhea
[2021-04-20] MEDS: AMOXICILLIN/CLAVULANATE 875 MG TAB PO SCH (16:51)
[2021-04-20] MEDS: HYDROmorphone INJ 0.5 MG/0.5 ML SYR IV PRN (19:55)
[2021-04-20] MEDS: MONTELUKAST SODIUM 10 MG TABLET PO SCH (21:37)
[2021-04-21] MEDS: oxyCODONE HCL IR 5 MG TAB (IMMEDIATE RELEASE) PO PRN ×2 (04:47→22:15)
[2021-04-21] MEDS: LEVOTHYROXINE SODIUM 75 MCG TABLET PO SCH (06:02)
[2021-04-21] MEDS: ASPIRIN 81 MG ECTAB PO SCH (08:22)
[2021-04-21] MEDS: amLODIPine BESYLATE 5 MG TAB PO SCH (08:22)
[2021-04-21] MEDS: AMOXICILLIN/CLAVULANATE 875 MG TAB PO SCH ×2 (08:22→17:27)
[2021-04-21] MEDS: ENOXAPARIN 150 MG/ML SYR SQ SCH ×2 (08:23→20:08)
[2021-04-21] MEDS: CHOLECALCIFEROL 1,000 UNITS 25 MCG TAB PO SCH (08:23)
[2021-04-21] MEDS: FLUTICASONE PROPIONATE NA SPR 16 GM BTL SCH ×2 (08:24→20:07)
[2021-04-21] MEDS: guaiFENesin 600 MG TABCR PO SCH ×2 (08:25→20:07)
[2021-04-21] MEDS: MAGNESIUM OXIDE 400 MG TAB PO SCH ×2 (08:25→20:07)
[2021-04-21] MEDS: LOSARTAN POTASSIUM 50 MG TAB PO SCH (08:25)
[2021-04-21] MEDS: oxyCODONE HCL 10 MG TABCR (OxyCONTIN) PO SCH ×2 (08:25→20:05)
[2021-04-21] MEDS: MULTIVITAMIN TAB PO SCH (08:25)
[2021-04-21] MEDS: PANTOprazole 40 MG TAB PO SCH (08:26)
[2021-04-21] MEDS: AZITHROMYCIN 500 MG in DEXTROSE 5% 250 ML IV SCH (10:35)
[2021-04-21] MEDS: HYDROmorphone INJ 0.5 MG/0.5 ML SYR IV PRN (14:40)
[2021-04-21] MEDS: ONDANSETRON 8MG OD TAB PO PRN ×2 (14:49→22:45)
[2021-04-21] MEDS ORDERED: ZOLPIDEM TARTRATE 5 MG TAB PO PRN (16:54)
--- NOTE | 2021-04-21 17:02 | Hospitalist Progress Note ---
Date of Service April 21, 2021 Assessment & Plan (1) Debility: Plan: * Patient with 2 lengthy hospitalizations since the beginning of last month resulting in severe debility. Since that time, she has had a hemicolectomy and a new diagnosis of colon cancer with rapid progression. * (Hospitalized 04/06 through 03/23 for bowel obstruction resulting in hemicolectomy from colon CA. Readmitted 04/14) * PT/OT on board--both agreeing inpatient rehab * Case management on board (2) Abdominal pain: Plan: * Likely multifactorial (from splenic infarction and tumor burden) * Pain controlled with current pain regimen (long-acting oxycodone with OxyIR for breakthrough) * KUB done 04/19 showing no evidence of obstruction * General surgery consulted.No intervention at this time. * Patient seen in consultation by Dr. Dawn from oncology. She understands that the cancer is not curable but that chemotherapy may be used for palliation. * will need Mediport in order to provide salvage chemotherapy * At this time patient will need to be cleared of all infection including possible pneumonia in order to safely place in a port. (plan is for this to be done within the next 2 weeks) * Continue supportive care at this time. (3) Hypoxia: Plan: * Acute hypoxic respiratory failure no pulmonary emboli identified * CT chest reviewed from 04/14/2021. Patient does have tree-in-bud appearance. Minimal mucous plugging. No evidence of bronchiectasis. Possible pneumonitis but no clear consolidation or infiltrate. * Concern for lymphangitic spread. Unable to provide salvage chemotherapy until a port is placed. Continue supportive care. * MRSA nasal swab negative * Cefepime on board upfront which has since been transitioned to oral Augmentin (for HCAP) and azithromycin on board for atypical coverage (given tree-in-bud formation). Patient will need 7 days totalAugmentin to complete tomorrow. Needs 2 additional doses of azithromycin * Did receive Mucomyst for associated mucous plugging. 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 coagulation clinic recommends therapeutic anticoagulation for splenic infarct * Currently on Lovenox at therapeutic doses of 1 mg/kg twice daily. which was initially held with thought to proceed with Mediport. Spoke to Dr. Campbell and this will be done as an outpatient given active infection/pneumonia * echo shows no evidence of intracardiac thrombus. Did show concern for atrial septal aneurysm. Case discussed with cardiology who is recommending no further evaluation as treatment would be anticoagulation therapy (for which patient is already on). 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 Hypercoagulable panel NOT obtained as would be falsely skewed in the setting of an active thrombus * spoke with radiology regarding concern for possible underlying abscess (radiologist looked at initial CT again and confirmed that this is infarction and not misinterpretation-- not an abscess). * Abdominal pain seems to be controlled with pain regimen on board * Given plan for Mediport in the upcoming weeks, plan would be to discharge with treatment dose Lovenox (as to avoid necessary postponing of Mediport insertion for bridge therapy). Once Mediport placed, can transition to DOAC (did discuss this plan with Dr. Campbell-- who plans on mediport insertion) (5) Acute kidney injury: Plan: Resolved. Creatinine 2.04 upon presentation. (2.04--> 1.20--> 0.92--> 1.11--> 10.7--> 1.06) (6) Adenocarcinoma of colon: Plan: * s/p partial colectomy. * There is definitely concern for rapid progression * there is evidence of bulky lymphadenopathy in abdomen and chest (with partial necrosis) in some places pushing on vascular structure * tumor burden likely contributing to abd pain. * CEA 186 on 03/10, 1147 on 04/16 * oncology on board and will follow patient as an OP (to start chemotherapy). Oncology requesting Mediport sooner rather than later as to facilitate starting chemo. Again, surgery has not plans to do this at this time given active PNA. Plan (per general surgery) is for this to be done within 2 weeks (7) History of colectomy: Plan: as above. (8) Hypothyroidism: Plan: Continue home levothyroxine (9) Irritable bowel syndrome: Plan: appears controlled. (10) Morbid obesity: Plan: recommend lifestyle recommendations BMI 43 (11) Asthma: Plan: No evidence of status asthmaticus Continues on scheduled duo nebs (12) Chronic reflux esophagitis: Plan: Continue PPI (13) Dyslipidemia: Plan: Diet controlled, not on medications (14) Hypomagnesemia: Plan: Replaced and resolved--given IV mag sulfate and oral magnesium increased Plan: Patient is medically and hemodynamically stable for discharge. Is awaiting authorization for placement to [facility] facility I have reached back out to Dr. Campbell regarding the Mediport. I wanted to inform him that patient is still here and is due to complete Augmentin after la st dose today with 2 additional doses of azithromycin. From a medical standpoint, would feel comfortable proceeding with [facility]. Unsure if this can be facilitated prior to discharge. At discretion of Dr. Campbell. Admission and Anticipated Discharge Date Admission Date: April 14, 2021 Subjective Patient seen on daily rounds today. Her only complaint is continued weakness and not sleeping. It was not abdominal pain or any symptomatology that kept her up but her roommate. At this time, she has been medically and hemodynamically stable for discharge. In terms of her pneumonia, she is not requiring any supplemental oxygen. Her adventitious breath sounds have completely resolved. And she is fairly asymptomatic (other than weakness which can be explained by other things). In terms of her abdominal painthis seems to be adequately controlled with oxycodon e/OxyIR on board. Therapy saw patient yesterday and PT reported that she was independent although she was only transitioned from the bed to the chair and was unable to stay there for long due to fatigue. OT worked with patient and reported that she was unable to perform ADLs. PT back in this morning but patient refused as she was "too weak". When explained at length with patient that she needs to participate with the therapy evaluation in hopes of getting her placed, she obliged. PT finally saw patient and is recommending acute rehab. Review of Systems Review of Systems: All systems reviewed and are unremarkable except as noted in HPI and below Complains of profound weakness but otherwise, denies fevers, chills, headache, nasal congestion, sore throat, cough, chest pain, shortness of breath, abdominal pain, nausea, vomiting, dysuria, hematuria, frequency, skin lesions or rashes. Physical Exam Physical Exam: General: Resting comfortably in her hospital bed. Becoming withdrawn with flat affect. Does not appear ill or toxic. NAD. Neck: No JVD. Negative hepatojugular reflex Cardiac: RRR without M/G/R Lungs: CTA without W/R/R Abdomen: Normoactive X4. Mildly tender in the right upper and right lower quadrants Extremities: No peripheral clubbing cyanosis or edema Neuro: A&O X4 cranial nerves II through XII are grossly intact no focal neuro deficits Skin: No obvious skin lesions or rashes Results & Data Results & Data ([facility]) Vital Signs (Past 12 Hours) Vital Signs Temp Pulse Resp BP Pulse Ox 04/21/21 15:44 36.7 C 93 H 20 121/74 90 04/21/21 07:37 36.5 C 96 H 20 119/78 91 PG Care Time/CCT Total # of Minutes Spent Total Time Spent with Patient: Total time spent is greater than 50% in coordination of care (as documented) at patient's floor/unit and/or counseling patient: [place] [address] Subseq Hosp Care Lvl 2 Patient Type Established History Expanded Problem Focused Exam Expanded Problem Focused Medical Decision Making Moderate Complexity Diagnoses Debility R53.81 Abdominal pain R10.9 Hypoxia R09.02 Splenic infarction D73.5 Acute kidney injury N17.9 Adenocarcinoma of colon C18.9 History of colectomy Z90.49 Hypothyroidism E03.9 Irritable bowel syndrome K58.0 Irritable bowel syndrome type: with diarrhea Morbid obesity E66.01 Asthma J45.909 Chronic reflux esophagitis K21.0 Dyslipidemia E78.5 Hypomagnesemia E83.42 (1) Irritable bowel syndrome Irritable bowel syndrome type: with diarrhea Qualified Code(s): K58.0 - Irritable bowel syndrome with diarrhea
[2021-04-21] MEDS: MONTELUKAST SODIUM 10 MG TABLET PO SCH (20:07)
[2021-04-22] MEDS: LEVOTHYROXINE SODIUM 75 MCG TABLET PO SCH (06:00)
[2021-04-22] MEDS: oxyCODONE HCL IR 5 MG TAB (IMMEDIATE RELEASE) PO PRN ×2 (06:06→18:25)
[2021-04-22] MEDS: ONDANSETRON 8MG OD TAB PO PRN (08:30)
[2021-04-22] MEDS: HYDROmorphone INJ 0.5 MG/0.5 ML SYR IV PRN ×2 (08:36→12:39)
[2021-04-22] MEDS: ENOXAPARIN 150 MG/ML SYR SQ SCH ×2 (08:40→20:55)
[2021-04-22] MEDS: FLUTICASONE PROPIONATE NA SPR 16 GM BTL SCH ×2 (08:42→20:55)
[2021-04-22] MEDS: PANTOprazole 40 MG TAB PO SCH (08:43)
[2021-04-22] MEDS: amLODIPine BESYLATE 5 MG TAB PO SCH (08:43)
[2021-04-22] MEDS: LOSARTAN POTASSIUM 50 MG TAB PO SCH (08:44)
[2021-04-22] MEDS: MULTIVITAMIN TAB PO SCH (08:44)
[2021-04-22] MEDS: CHOLECALCIFEROL 1,000 UNITS 25 MCG TAB PO SCH (08:45)
[2021-04-22] MEDS: ASPIRIN 81 MG ECTAB PO SCH (08:45)
[2021-04-22] MEDS: AMOXICILLIN/CLAVULANATE 875 MG TAB PO SCH (08:45)
[2021-04-22] MEDS: guaiFENesin 600 MG TABCR PO SCH ×2 (08:46→20:55)
[2021-04-22] MEDS: MAGNESIUM OXIDE 400 MG TAB PO SCH ×2 (08:46→20:56)
[2021-04-22] MEDS: AZITHROMYCIN 250 MG TAB PO SCH (08:47)
[2021-04-22] MEDS: oxyCODONE HCL 10 MG TABCR (OxyCONTIN) PO SCH (09:00)
--- NOTE | 2021-04-22 10:12 | Surgery Progress Note ---
Date of Service April 22, 2021 Assessment & Plan (1) Adenocarcinoma of colon: Plan: discussed with primary team. ok for d/c. my office will arrange out -pt mediport placement next week which can be used immediately to initate chemotherapy as per Dr. Whiteside. discussed plan with Verito today... she understands the mediport placement and associated risks. questions answered. will plan placement next week. Admission and Anticipated Discharge Date Admission Date: April 14, 2021 Subjective pt seen. no new concerns. reasonably comfortable on current pain regiment. Physical Exam Physical Exam: alert. nad abd: soft. mild tenderness. no changes since last exam. Results & Data ([facility]) Vital Signs (Past 12 Hours) Vital Signs Temp Pulse Resp BP Pulse Ox 04/22/21 06:54 36.6 C 102 H 20 116/67 92 04/21/21 23:09 36.7 C 106 H 18 116/74 91 PG Care Time/CCT Total # of Minutes Spent Total Time Spent with Patient: Total time spent is greater than 50% in coordination of care (as documented) at patient's floor/unit and/or counseling patient: Coding Level of Care Code 03498 Subseq Hosp Care Lvl 2 Diagnoses Adenocarcinoma of colon C18.9
[2021-04-22] MEDS ORDERED: PROCHLORPERAZINE 10 MG in SYRINGE 8 ML IV ONE (13:00)
--- NOTE | 2021-04-22 16:34 | Hospitalist Progress Note ---
Date of Service April 22, 2021 Assessment & Plan (1) Debility: Plan: * Patient with 2 lengthy hospitalizations since the beginning of last month resulting in severe debility. Since that time, she has had a hemicolectomy and a new diagnosis of colon cancer with rapid progression. * (Hospitalized 04/06 through 03/23 for bowel obstruction resulting in hemicolectomy from colon CA. Readmitted 04/14) * PT/OT on board--both agreeing inpatient rehab * Case management on board * Explained that chemotherapy cannot be postponed for rehab purposes. Patient has aggressive malignancy and salvage chemotherapy needs to be started [facility]. Awaiting Mediport (which is to be done within the next 2 weeks). I feel that within that 2-week timeframe, patient should have aggressive therapy upfront to help with the debility that has taken place to get her up for "low flight of her life" so to speak that will occur with chemotherapy. We cannot postpone chemotherapy to allow PT/OT to take precedence. Given the debility taken place from her lengthy hospitalizationsshe will be unable to care for herself at home. This will only be further exacerbated when she does start chemotherapy. Aggressive PT/OT upfront makes sense. (2) Abdominal pain: Plan: * Likely multifactorial (from splenic infarction and tumor burden) * Pain controlled; however, patient still requiring IV Dilaudid as needed. Will increase long-acting oxycodone and allow for 10 mg of OxyIR for pain 1-5 and 15 mg of OxyIR for pain 6-10 * KUB done 04/19 showing no evidence of obstruction * General surgery consulted.No intervention at this time. * Patient seen in consultation by Dr. Dawn from oncology. She understands that the cancer is not curable but that chemotherapy may be used for palliation. * will need Mediport in order to provide salvage chemotherapy * At this time patient will need to be cleared of all infection including possible pneumonia in order to safely place in a port. (plan is for this to be done within the next 2 weeks) * Continue supportive care at this time. (3) Hypoxia: Plan: * resolved * no pulmonary emboli identified * CT chest reviewed from 04/14/2021. Patient does have tree-in-bud appearance. Minimal mucous plugging. No evidence of bronchiectasis. Possible pneumonitis but no clear consolidation or infiltrate. * Concern for lymphangitic spread. Unable to provide salvage chemotherapy until a port is placed. Continue supportive care. * MRSA nasal swab negative * Cefepime on board upfront which has since been transitioned to oral Augmentin (for HCAP) and azithromycin on board for atypical coverage (given tree-in-bud formation). Patient will need 7 days totalAugmentin to complete today. Needs 1 additional doses of azithromycin * Did receive Mucomyst for associated mucous plugging. 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 coagulation clinic recommends therapeutic anticoagulation for splenic infarct * Currently on Lovenox at therapeutic doses of 1 mg/kg twice daily. which was initially held with thought to proceed with Mediport. Spoke to Dr. Campbell and this will be done as an outpatient given active infection/pneumonia * echo shows no evidence of intracardiac thrombus. Did show concern for atrial septal aneurysm. Case discussed with cardiology who is recommending no further evaluation as treatment would be anticoagulation therapy (for which patient is already on). 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 Hypercoagulable panel NOT obtained as would be falsely skewed in the setting of an active thrombus * spoke with radiology regarding concern for possible underlying abscess (radiologist looked at initial CT again and confirmed that this is infarction and not misinterpretation-- not an abscess). * Abdominal pain seems to be controlled with pain regimen on board * Given plan for Mediport in the upcoming weeks, plan would be to discharge with treatment dose Lovenox (as to avoid necessary postponing of Mediport insertion for bridge therapy). Once Mediport placed, can transition to DOAC (did discuss this plan with Dr. Campbell-- who plans on mediport insertion) (5) Acute kidney injury: Plan: Resolved. Creatinine 2.04 upon presentation. (2.04--> 1.20--> 0.92--> 1.11--> 10.7--> 1.06) (6) Adenocarcinoma of colon: Plan: * s/p partial colectomy. * There is definitely concern for rapid progression * there is evidence of bulky lymphadenopathy in abdomen and chest (with partial necrosis) in some places pushing on vascular structure * tumor burden likely contributing to abd pain. * CEA 186 on 03/10, 1147 on 04/16 * oncology on board and will follow patient as an OP (to start chemotherapy). Oncology requesting Mediport sooner rather than later as to facilitate starting chemo. Again, surgery has not plans to do this at this time given active PNA. Plan (per general surgery) is for this to be done within 2 weeks (7) History of colectomy: Plan: as above. (8) Hypothyroidism: Plan: Continue home levothyroxine (9) Irritable bowel syndrome: Plan: appears controlled. (10) Morbid obesity: Plan: recommend lifestyle recommendations BMI 43 (11) Asthma: Plan: No evidence of status asthmaticus Continues on scheduled duo nebs (12) Chronic reflux esophagitis: Plan: Continue PPI (13) Dyslipidemia: Plan: Diet controlled, not on medications (14) Hypomagnesemia: Plan: Replaced and resolved--given IV mag sulfate and oral magnesium increased Plan: Patient is medically and hemodynamically stable for discharge. Is awaiting authorization for placement to [facility] I have reached back out to Dr. Campbell regarding the [place]. I wanted to inform him that patient is still here and is due to complete Augmentin after last dose today with 1 additional doses of azithromycin. From a medical standpoint, would feel comfortable proceeding with [facility] as an outpatient. He will have his office arrange. plan of care D/W Dr. Bowie Admission and Anticipated Discharge Date Admission Date: April 14, 2021 Subjective Patient seen on daily rounds today. He continues to complain of fatigue but otherwise no other significant complaints or concerns. Denies fevers, chills, chest pain, shortness of breath, abdominal pain, nausea or vomiting. Pain is controlled but it was just brought to my attention that she still requiring the Dilaudid for adequate pain control. Still awaiting authorization from [facility] facility. They are requesting that her chemotherapy be postponed in order to get her "rehab". Review of Systems Review of Systems: All systems reviewed and are unremarkable except as noted in HPI and below Denies fevers, chills, headache, nasal congestion, sore throat, cough, chest pain, shortness of breath, abdominal pain, nausea, vomiting, dysuria, hematuria, frequency, skin lesions or rashes. Physical Exam Physical Exam: General: Resting comfortably in her hospital bed. Becoming withdrawn with flat affect. Does not appear ill or toxic. NAD. Neck: No JVD. Negative hepatojugular reflex Cardiac: RRR without M/G/R Lungs: CTA without W/R/R Abdomen: Normoactive X4. Mildly tender in the right upper and right lower quadrants Extremities: No peripheral clubbing cyanosis or edema Neuro: A&O X4 cranial nerves II through XII are grossly intact no focal neuro deficits Skin: No obvious skin lesions or rashes Results & Data Results & Data ([facility]) Vital Signs (Past 12 Hours) Vital Signs Temp Pulse Resp BP Pulse Ox 04/22/21 06:54 36.6 C 102 H 20 116/67 92 PG Care Time/CCT Total # of Minutes Spent Total Time Spent with Patient: Total time spent is greater than 50% in coordination of care (as documented) at patient's floor/unit and/or counseling patient: C[place] [address] Subseq Hosp Care Lvl 2 Patient Type Established History Expanded Problem Focused Exam Expanded Problem Focused Diagnoses Debility R53.81 Abdominal pain R10.9 Hypoxia R09.02 Splenic infarction D73.5 Acute kidney injury N17.9 Adenocarcinoma of colon C18.9 History of colectomy Z90.49 Hypothyroidism E03.9 Irritable bowel syndrome K58.0 Irritable bowel syndrome type: with diarrhea Morbid obesity E66.01 Asthma J45.909 Chronic reflux esophagitis K21.0 Dyslipidemia E78.5 Hypomagnesemia E83.42 (1) Irritable bowel syndrome Irritable bowel syndrome type: with diarrhea Qualified Code(s): K58.0 - Irritable bowel syndrome with diarrhea
[2021-04-22] MEDS ORDERED: oxyCODONE HCL IR 5 MG TAB (IMMEDIATE RELEASE) PO PRN (16:47)
[2021-04-22] MEDS: MONTELUKAST SODIUM 10 MG TABLET PO SCH (20:56)
[2021-04-22] MEDS: oxyCODONE HCL 15 MG TABCR (OxyCONTIN) PO SCH (20:56)
[2021-04-23] MEDS: oxyCODONE HCL IR 5 MG TAB (IMMEDIATE RELEASE) PO PRN ×3 (06:23→19:48)
[2021-04-23] MEDS: LEVOTHYROXINE SODIUM 75 MCG TABLET PO SCH (06:24)
[2021-04-23] MEDS: MULTIVITAMIN TAB PO SCH (08:45)
[2021-04-23] MEDS: oxyCODONE HCL 15 MG TABCR (OxyCONTIN) PO SCH ×2 (08:47→21:25)
[2021-04-23] MEDS: MAGNESIUM OXIDE 400 MG TAB PO SCH ×2 (08:48→21:25)
[2021-04-23] MEDS: AZITHROMYCIN 250 MG TAB PO SCH (08:49)
[2021-04-23] MEDS: amLODIPine BESYLATE 5 MG TAB PO SCH (08:50)
[2021-04-23] MEDS: ASPIRIN 81 MG ECTAB PO SCH (08:51)
[2021-04-23] MEDS: PANTOprazole 40 MG TAB PO SCH (08:51)
[2021-04-23] MEDS: LOSARTAN POTASSIUM 50 MG TAB PO SCH (08:52)
[2021-04-23] MEDS: CHOLECALCIFEROL 1,000 UNITS 25 MCG TAB PO SCH (08:53)
[2021-04-23] MEDS: ENOXAPARIN 150 MG/ML SYR SQ SCH ×2 (08:54→21:24)
[2021-04-23] MEDS: ONDANSETRON 8MG OD TAB PO PRN (08:54)
[2021-04-23] MEDS: guaiFENesin 600 MG TABCR PO SCH (08:58)
[2021-04-23] MEDS: FLUTICASONE PROPIONATE NA SPR 16 GM BTL SCH ×2 (08:58→21:25)
[2021-04-23] MEDS: ACETAMINOPHEN 500 MG TAB PO PRN (09:15)
--- NOTE | 2021-04-23 16:11 | Hospitalist Progress Note ---
Date of Service April 23, 2021 Assessment & Plan (1) Debility: Plan: * Patient with 2 lengthy hospitalizations since the beginning of last month resulting in severe debility. Since that time, she has had a hemicolectomy and a new diagnosis of colon cancer with rapid progression. * (Hospitalized 04/06 through 03/23 for bowel obstruction resulting in hemicolectomy from colon CA. Readmitted 04/14) * PT/OT on board--both agreeing inpatient rehab * Case management on board with attempts for placement to senior living facility for acute rehab * All surrounding nursing homes are reluctant to take patient given her diagnosis of cancer and plan for upcoming chemotherapy which would limit her rehab potential. Patient still needs to have a Mediport placed (which I have spoken to surgeon about multiple times and plan is to have this done as an outpatient within 2 weeks). She then will follow up with oncology to initiate chemotherapy. She has at least 2 weeks before treatment will begin. During that time, I think she would benefit from inpatient rehabilitation. (2) Abdominal pain: Plan: * Likely multifactorial (from splenic infarction and tumor burden) * Pain seems better controlled with up titration and pain medication * KUB done 04/19 showing no evidence of obstruction * General surgery consulted.No intervention at this time. * Patient seen in consultation by Dr. Dawn from oncology. She understands that the cancer is not curable but that chemotherapy may be used for palliation. * will need Mediport in order to provide salvage chemotherapy * At this time patient will need to be cleared of all infection including possible pneumonia in order to safely place in a port. (plan is for this to be done within the next 2 weeks) * Continue supportive care at this time. (3) Hypoxia: Plan: * resolved * no pulmonary emboli identified * CT chest reviewed from 04/14/2021. Patient did have tree-in-bud appearance. Minimal mucous plugging. No evidence of bronchiectasis. Possible pneumonitis but no clear consolidation or infiltrate. * Concern for lymphangitic spread. Unable to provide salvage chemotherapy until a port is placed. Continue supportive care. * MRSA nasal swab negative * Cefepime and on board upfront. This was transitioned to Augmentin. Azithromycin added for tree-in-bud formation. * Patient's hypoxemia and adventitious breath sounds noted initially have resolved. Her lungs are now clear and she is no longer requiring supplemental oxygen. * Did receive Mucomyst for associated mucous plugging. * Sputum culture showing only normal ronit * Blood culture showing no growth * Completed mucolytic agents. We will continue incentive spirometry while in house. 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 coagulation clinic recommends therapeutic anticoagulation for splenic infarct * Currently on Lovenox at therapeutic doses of 1 mg/kg twice daily. which was initially held with thought to proceed with Mediport. Spoke to Dr. Campbell and this will be done as an outpatient given active infection/pneumonia (which she has now completed full course of antibiotic therapy) * echo shows no evidence of intracardiac thrombus. Did show concern for atrial septal aneurysm. Case discussed with cardiology who is recommending no further evaluation as treatment would be anticoagulation therapy (for which patient is already on). 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 Hypercoagulable panel NOT obtained as would be falsely skewed in the setting of an active thrombus * spoke with radiology regarding concern for possible underlying abscess (radiologist looked at initial CT again and confirmed that this is infarction and not misinterpretation-- not an abscess). * Abdominal pain seems to be controlled with pain regimen on board * Given plan for Mediport in the upcoming weeks, plan would be to discharge with treatment dose Lovenox (as to avoid necessary postponing of Mediport insertion for bridge therapy). Once Mediport placed, can transition to DOAC (did discuss this plan with Dr. Campbell-- who plans on mediport insertion) (5) Acute kidney injury: Plan: Resolved. Creatinine 2.04 upon presentation. (2.04--> 1.20--> 0.92--> 1.11--> 10.7--> 1.06) (6) Adenocarcinoma of colon: Plan: * s/p partial colectomy. * There is definitely concern for rapid progression * there is evidence of bulky lymphadenopathy in abdomen and chest (with partial necrosis) in some places pushing on vascular structure * tumor burden likely contributing to abd pain. * CEA 186 on 03/10, 1147 on 04/16 * oncology on board and will follow patient as an OP (to start chemotherapy). Oncology requesting Mediport sooner rather than later as to facilitate starting chemo. Again, surgery has not plans to do this at this time given active PNA. Plan (per general surgery) is for this to be done within 2 weeks (7) History of colectomy: Plan: as above. (8) Hypothyroidism: Plan: Continue home levothyroxine (9) Irritable bowel syndrome: Plan: appears controlled. (10) Morbid obesity: Plan: recommend lifestyle recommendations BMI 43 (11) Asthma: Plan: No evidence of status asthmaticus Continues on scheduled duo nebs (12) Chronic reflux esophagitis: Plan: Continue PPI (13) Dyslipidemia: Plan: Diet controlled, not on medications (14) Hypomagnesemia: Plan: Replaced and resolved--given IV mag sulfate and oral magnesium increased Plan: Patient is medically and hemodynamically stable for discharge. Is awaiting authorization for placement to senior living facility plan of care D/W Dr. Bowie Admission and Anticipated Discharge Date Admission Date: April 14, 2021 Subjective Patient seen on daily rounds today. Pain seems more controlled with increase in oxycodone/OxyIR. Otherwise, she vocalizes no complaints or concerns. Denies fevers, chills, chest pain, shortness of breath, abdominal pain, nausea or vomiting. Case management on board for placement. Still no authorization yet. Review of Systems Review of Systems: All systems reviewed and are unremarkable except as noted in HPI and below Denies fevers, chills, headache, nasal congestion, sore throat, cough, chest pain, shortness of breath, palpitations, orthopnea, PND, nausea, vomiting, d iarrhea, constipation, dysuria, hematuria, frequency, back pain, joint pain or swelling, easy bruising or blooding, skin lesions or rashes. Physical Exam Physical Exam: General: Resting comfortably in her hospital bed. NAD. HEENT: Head is AT/NC buccal mucosa is moist and pink Neck: No JVD. Negative hepatojugular reflex Cardiac: RRR without M/G/R Lungs: CTA without W/R/R Abdomen: Normoactive X4. Soft and nontender in all quadrants. Extremities: No peripheral clubbing cyanosis or edema Neuro: A&O X4 cranial nerves II through XII are grossly intact no focal neuro deficits Skin: No obvious skin lesions or rashes Psych: Appropriate affect pleasant and cooperative Results & Data Results & Data ([facility]) Vital Signs (Past 12 Hours) Vital Signs Temp Pulse Resp BP BP Pulse Ox 04/23/21 15:00 36.7 C 106 H 20 114/74 92 04/23/21 06:59 36.5 C 102 H 20 112/73 90 04/23/21 04:45 36.5 C 109 H 22 122/82 92 Laboratory Results No lab data today PG Care Time/CCT Total # of Minutes Spent Total Time Spent with Patient: Total time spent is greater than 50% in coordination of care (as documented) at patient's floor/unit and/or counseling patient: [place] [address] Subseq Hosp Care Lvl 1 Patient Type Established History Expanded Problem Focused Exam Expanded Problem Focused Medical Decision Making Low Complexity Diagnoses Debility R53.81 Abdominal pain R10.9 Hypoxia R09.02 Splenic infarction D73.5 Acute kidney injury N17.9 Adenocarcinoma of colon C18.9 History of colectomy Z90.49 Hypothyroidism E03.9 Irritable bowel syndrome K58.0 Irritable bowel syndrome type: with diarrhea Morbid obesity E66.01 Asthma J45.909 Chronic reflux esophagitis K21.0 Dyslipidemia E78.5 Hypomagnesemia E83.42 (1) Irritable bowel syndrome Irritable bowel syndrome type: with diarrhea Qualified Code(s): K58.0 - Irritable bowel syndrome with diarrhea
[2021-04-23] MEDS: MONTELUKAST SODIUM 10 MG TABLET PO SCH (21:25)
[2021-04-24] MEDS: LEVOTHYROXINE SODIUM 75 MCG TABLET PO SCH (06:12)
[2021-04-24] MEDS: ONDANSETRON 8MG OD TAB PO PRN (09:34)
[2021-04-24] MEDS: oxyCODONE HCL 15 MG TABCR (OxyCONTIN) PO SCH (09:35)
[2021-04-24] MEDS: oxyCODONE HCL IR 5 MG TAB (IMMEDIATE RELEASE) PO PRN (09:35)
[2021-04-24] MEDS: FLUTICASONE PROPIONATE NA SPR 16 GM BTL SCH (09:36)
[2021-04-24] MEDS: ASPIRIN 81 MG ECTAB PO SCH (09:36)
[2021-04-24] MEDS: amLODIPine BESYLATE 5 MG TAB PO SCH (09:37)
[2021-04-24] MEDS: MAGNESIUM OXIDE 400 MG TAB PO SCH (09:37)
[2021-04-24] MEDS: PANTOprazole 40 MG TAB PO SCH (09:38)
[2021-04-24] MEDS: MULTIVITAMIN TAB PO SCH (09:38)
[2021-04-24] MEDS: LOSARTAN POTASSIUM 50 MG TAB PO SCH (09:38)
[2021-04-24] MEDS: CHOLECALCIFEROL 1,000 UNITS 25 MCG TAB PO SCH (09:39)
[2021-04-24] MEDS: ENOXAPARIN 150 MG/ML SYR SQ SCH (09:39)
--- NOTE | 2021-04-24 15:29 | Discharge Summary ---
Date of Service April 24, 2021 Admission HPI Per Admitting Provider 60 yo female with a past medical history of IBS, well-controlled asthma, HTN, hyperlipidemia, and hypothyroidism comes into the hospital after being seen by Dr. Campbell in his outpatient practice today. She appeared unwell at the appointment and was found to be hypoxic. Patient was recently discharged (1 month ago), and had a bowel resection for colon adenocarcinoma. She reports that since discharge she has not returned to baseline. She states she has been having good days and bad days. She reports that on her bad days she was complaining of dyspnea which can occur sporadically, worsen with activity but improves when she lies down. This was accompanied by cold sweats during the day, and decreased appetite. Bad days would occur intermittently every other day. However she feels that the past 3 days have been bad. She denies any chest pains or headaches. She denies fevers. She has had a slight cough. No runny nose or sore throat. Denies any pain or swelling in her legs. She does have some abdominal discomfort she feels is related to her recent surgery. No additional complaints at this time. Principal Diagnosis 1. Overall debility 2. Multilobar pneumoniacompleted antibiotic therapy 3. Hypoxemiasecondary to #2 and resolved 4. Abdominal painmultifactorial (from tumor burden and splenic infarct) 5. Splenic artery infarction Discharge Exam General: Resting comfortably in her hospital bed. NAD. HEENT: Head is AT/NC buccal mucosa is moist and pink Neck: No JVD. Negative hepatojugular reflex Cardiac: RRR without M/G/R Lungs: CTA without W/R/R Abdomen: Normoactive X4. Soft and nontender in all quadrants. Extremities: No peripheral clubbing cyanosis or edema Neuro: A&O X4 cranial nerves II through XII are grossly intact no focal neuro deficits Skin: No obvious skin lesions or rashes Psych: Appropriate affect pleasant and cooperative Discharge Data Allergies Allergy/AdvReac Type Severity Reaction Status Date / Time house dust mite Allergy Mild sneezy, Verified 04/14/21 11:37 watery eyes oak Allergy Mild sneezy, Verified 04/14/21 11:37 watery eyes No Known Drug Allergies AdvReac Unknown Verified 04/14/21 11:37 Consultations 04/14/21 15:14 ED Decision to Admit Stat 04/15/21 19:23 Consult General Surgery Routine Assessment & Plan (1) Adenocarcinoma of colon: Plan: discussed with primary team. ok for d/c. my office will arrange out -pt mediport placement next week which can be used immediately to initate chemotherapy as per Dr. Whiteside. discussed plan with Verito today... she und erstands the mediport placement and associated risks. questions answered. will plan placement next week. Admission and Anticipated Discharge Date Admission Date: April 14, 2021 04/16/21 20:44 Consult Oncology Routine PLAN: It was my pleasure to visit with Verito at bedside. Verito has had a difficult course over the past month or so diagnosed with metastatic colorectal cancer and underwent palliative right hemicolectomy because of near obstruction, by Dr. Campbell on 03/13/2021. She has been slow to recover and subsequently was readmitted a couple of days ago with hypoxia and general feeling of malaise. CT scan of the abdomen and pelvis revealed progressing mesenteric and retroperitoneal lymphadenopathy that was seen originally at diagnosis a month earlier. CEA level was now over 1000. Verito understands she suffers from stage IV colorectal cancer and thus cannot be cured. That said, she is amenable to receive salvage chemotherapy. K-CARLOTA testing on the tumor needs to be done to allow for further targets to be recommended when needed. A 20% of colorectal patients have PD-L1 avidity. Current standard is FOLFOX in conjunction with either bevacizumab or cetuximab if K-CARLOTA wild type. MediPort will be necessary and should make arrangements to have a device installed while in-house if possible. We will anticipate seeing Verito as an outpatient in the next week or two. Questions and concerns were addressed at bedside. Thank you very much for allowing me to participate in the care of this very pleasant patient. Ordered Studies 04/14/21 13:09 CT abd pelvis IV con only Stat FINDINGS: Lung bases: The heart is normal in size and without pericardial effusion. The coronary arteries are densely calcified. Enlarged hilar nodes are partially visualized and measure up to 2 cm in short axis. Irregular airspace opacities at both lung bases could represent scar/atelectasis versus a mild infectious/inflammatory pneumonitis. See report of chest CT performed concurrently for detailed intrathoracic findings. Liver: The contrast-enhanced liver is normal in size, contour, and attenuation. There is no intrahepatic biliary ductal dilatation. The hepatic veins and portal veins are patent. Adenopathy in the hepatic hilum causes mild mass effect on the main portal vein. Gallbladder: Surgically absent noting clips in the gallbladder fossa. Spleen: There is a 2.5 cm perfusion defect in the anterior spleen seen on image #108. This is consistent with a small splenic infarct. The spleen is normal in size and otherwise normal in attenuation. The splenic vein is patent. Pancreas: The pancreas is moderately atrophic and grossly unremarkable. Adrenal glands: Unremarkable. Kidneys: The contrast enhanced kidneys are normal in size and without hydronephrosis. The kidneys enhance symmetrically. Adenopathy significantly narrows the left renal vein as seen on image #199. Abdominal vasculature: The abdominal aorta is normal in course and caliber noting moderate atherosclerotic calcification. The IVC is effaced by retroperitoneal lymphadenopathy. Bowel: There is postoperative change from right hemicolectomy with ileocolic anastomosis. No bowel obstruction is identified. There is mild colonic diverticulosis without CT evidence of acute diverticulitis. Peritoneum: There is a small volume of perihepatic and perisplenic ascites, as well as a small to moderate volume of pelvic ascites. No intraperitoneal free air is identified. A midline surgical scar is noted. Lymphadenopathy: There is bulky upper abdominal lymphadenopathy. A node in the fiona hepatis on image #162 measures 3.9 x 2.6 cm. A large gastrohepatic node on image #170 measures 4.9 x 2.8 cm. A retrocrural node on image #112 measures 2.1 x 1.9 cm. There is bulky retroperitoneal lymphadenopathy. A left periaortic node on image #217 measures 3.1 x 1.9 cm. There is bulky mesenteric lymphadenopathy. A sales representative [employer] mesenteric node on image #253 measures 3.1 x 2.0 cm. No pelvic sidewall or inguinal adenopathy is identified. Several nodes show evidence of partial necrosis. Pelvic viscera: The bladder is decompressed and grossly unremarkable. The uterus is surgically absent. No adnexal lesion is seen. Skeletal structures: The skeletal structures are osteopenic. There is mild lumbosacral spondylosis. No lytic or blastic lesions are seen. IMPRESSION: 1. There is a 2.5 cm perfusion defect in the anterior spleen. This is new from 03/10/2021 and consistent with a splenic infarct. 2. There is postoperative change from right hemicolectomy with ileocolic anastomosis. No bowel obstruction is identified. 3. Small to moderate volume of abdominopelvic ascites. This is new from previous. 4. There is bulky upper abdominal, retroperitoneal, retrocrural, and mesenteric lymphadenopathy. Hilar adenopathy is also partially visualized. This has significantly progressed as compared to 03/10/2021. Several of these nodes show partial necrosis. Correlate with the patient's oncological history. 5. Retroperitoneal lymphadenopathy significant narrows the left renal vein. This also effaces the IVC at the level of the renal veins. 6. Additional findings as above. CT angio chest PE protocol Stat IMPRESSION: 1. No pulmonary emboli. 2. Bronchial wall thickening with multisegmental multilobar distribution of patchy tree-in-bud nodules compatible with a nonspecific bronchitis with bro nchiolitis/pneumonitis 3. Pathologic thoracic and upper abdominal adenopathy suggestive of lymphatic metastasis versus lymphoma 4. Splenomegaly with upper abdominal ascites. Echocardiogram: The left ventricle is normal size Normal LV wall thickness EF equals 60 to 65% LV systolic function normal Left ventricular wall motion normal Right ventricle is normal size and function Grade 1 diastolic dysfunction There is an atrial septal aneurysm present without obvious PFO Gram Stain Final 04/18/21-0750 Gram Stain Result Few Epithelial Cells Moderate WBCs Seen Few Gram Positive Cocci Few Gram Positive Bacilli Few Gram Negative Bacilli Hospital Course (1) Debility: * Patient with 2 lengthy hospitalizations since the beginning of last month resulting in severe debility. Since that time, she has had a hemicolectomy and a new diagnosis of colon cancer with rapid progression. * (Hospitalized 04/06 through 03/23 for bowel obstruction resulting in hemicolectomy from colon CA. Readmitted 04/14) * PT/OT on board--both agreeing inpatient rehab * plan is for placement for acute rehab (2) Abdominal pain: * Likely multifactorial (from splenic infarction and tumor burden)--> see CT report as outlined above * Pain seems better controlled with up titration and pain medication * KUB done 04/19 showing no evidence of obstruction * General surgery consulted.No intervention at this time. = * Patient seen in consultation by Dr. Dawn from oncology. She understands that the cancer is not curable but that chemotherapy may be used for palliation. * will need Mediport in order to provide salvage chemotherapy * At this time patient will need to be cleared of all infection including possible pneumonia in order to safely place in a port. (Patient did complete abx therapy while awaiting authorization for placement but surgery reports plan is for this to be done within the next 2 weeks * pain controlled with oxycodone and OxyIR (which were both uptitrated until pain control achieved) (3) Hypoxia: * resolved * no pulmonary emboli identified * CT chest reviewed from 04/14/2021. Patient did have tree-in-bud appearance. Minimal mucous plugging. No evidence of bronchiectasis. Possible pneumonitis but no clear consolidation or infiltrate. * Concern for lymphangitic spread. Unable to provide salvage chemotherapy until a port is placed. Continue supportive care. * MRSA nasal swab negative * Cefepime and on board upfront. This was transitioned to Augmentin. Azithromycin added for tree-in-bud formation. Patient has completed a full course of abx therapy * Patient's hypoxemia and adventitious breath sounds noted initially have since resolved. Her lungs are now clear and she is no longer requiring supplemental oxygen. * Did receive Mucomyst for associated mucous plugging. * Sputum culture showing only normal ronit * Blood culture showing no growth * Completed mucolytic agents. We will continue incentive spirometry while in house. (4) Splenic infarction: * filling defect noted (of the splenic artery). coagulation clinic recommends therapeutic anticoagulation for splenic infarct * Currently on Lovenox at therapeutic doses of 1 mg/kg twice daily. which was initially held with thought to proceed with Mediport. Spoke to Dr. Campbell and this will be done as an outpatient given active infection/pneumonia (which she has now completed full course of antibiotic therapy) * echo shows no evidence of intracardiac thrombus. Did show concern for atrial septal aneurysm. Case discussed with cardiology who is recommending no further evaluation as treatment would be anticoagulation therapy (for which patient is already on). 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 Hypercoagulable panel NOT obtained as would be falsely skewed in the setting of an active thrombus * spoke with radiology regarding concern for possible underlying abscess (radiologist looked at initial CT again and confirmed that this is infarction and not misinterpretation-- not an abscess). * Abdominal pain seems to be controlled with pain regimen on board * Given plan for Mediport in the upcoming weeks, plan would be to discharge with treatment dose Lovenox (as to avoid necessary postponing of Mediport insertion for bridge therapy). Once Mediport placed, can transition to DOAC (did discuss this plan with Dr. Campbell-- who plans on mediport insertion) (5) Acute kidney injury: Resolved. Creatinine 2.04 upon presentation. (2.04--> 1.20--> 0.92--> 1.11--> 10.7--> 1.06) (6) Adenocarcinoma of colon: * s/p partial colectomy. * There is definitely concern for rapid progression * there is evidence of bulky lymphadenopathy in abdomen and chest (with partial necrosis) in some places pushing on vascular structure * tumor burden likely contributing to abd pain. * CEA 186 on 03/10, 1147 on 04/16 * oncology on board and will follow patient as an OP (to start chemotherapy). Oncology requesting Mediport sooner rather than later as to facilitate starting chemo. Again, surgery has not plans to do this at this time given PNA noted during this hospitalization. Plan (per general surgery) is for this to be done within 2 weeks (7) History of colectomy: as above. (8) Hypothyroidism: Continue home levothyroxine (9) Irritable bowel syndrome: appears controlled. (10) Morbid obesity: recommend lifestyle recommendations BMI 43 (11) Asthma: No evidence of status asthmaticus given dueneb treatments while in house (12) Chronic reflux esophagitis: Continue PPI (13) Dyslipidemia: Diet controlled, not on medications (14) Hypomagnesemia: Replaced and resolved--given IV mag sulfate and oral magnesium increased Patient is medically and hemodynamically stable for discharge. Discharge to residential facility with plan for Mediport as an outpatient and follow-up with oncology to initiate salvage chemotherapy plan of care D/W Dr. Bowie Total Time Total Time Spent Total Time Spent (In Minutes): 45 Discharge Plan Discharge Items Patient Disposition: Transfer Shelter Fac Reason For Visit: ACUTE HYPOXIC RESPIRATORY FAILURE Discharge Diagnosis: 1. Multilobar PNA- completed full course of treatment 2. Abdominal Pain- multifactorial (splenic infarct and tumor burden) 3. Splenic Infarction 4. Splenic Artery Thrombosis 5. Colon CA with lymphangetic spread Activity: Resume your previous activity Activity Comment: PT/OT encouraged for strength training Non-emergency contact: Primary Care Provider, Surgeon and Oncologist Call non-emergency contact if: you have any medication questions and your symptoms worsen Follow-up/Referrals: Traci Patton DO [Primary Care Provider] - Lefty Dawn DO [Physician] - ([facility] will call you directly to re-schedule your appointment. Dr. Dawn is aware of your hospitalization.) Yayo Campbell, [Surgeon] - 05/19/21 9:45 am (Your appointment to see Dr. Campbell has been rescheduled to 05/19/21 at 9:45 am. When you are discharged from rehab, please call his office to notify them that you are home as they may wish to see you sooner.) Diet: Heart Healthy Addtl Attending Provider Instructions: - patient was hospitalized with low oxygen levels found to be related to Multilobar Pneumonia. - Given recent hospitalization-- was treated for Hospital Acquired pneumonia (Cefepime with transition to Augmentin) - In addition, was treated with Azithromycin given it's atypical appearance - Patient completed a full course of antibiotic Therapy (Both Augmentin and Azithromycin) and her Respiratory symptoms are at baseline. - Should have Follow up CT of the chest to ensure resolution (however, may end up with imaging given new dx of colon CA-- to help with staging) - Patient also was experiencing abdominal pain (thought to be multifactorial). - Noted to have splenic artery thrombosis with subsequent splenic infarction-- on Lovenox for. - Patient for Mediport as an outpatient. HOLD LOVENOX DAY OF PROCEDURE - Can decide transition of lovenox to DOAC vs continuation of Lovenox following mediport (at discretion of house Physician or PCP) - Also, abd pain thought to be due to rapidly progressive colon CA (with lymphangetic spread). TO HAVE MEDIPORT AND START CHEMO - Onxycodone with OxyIR for breakthrough on board for pain control along with bowel regimen - Goal is for [facility] rehab for strength training leading up to mediport placement and chemo (which is to start) and patient VERY debilitation given 2 [id number] hosptialzations - follow up with house physician withint 24-48 hours - PLEASE HAVE PATIENT FOLLOW UP WITH DR. CAMPBELL (call for FU appt) to facilitate mediport placement - FU with Dr. Dawn: is scheduled for 05/19 - return to the ED for new or worsening symtpoms Pending Studies at Discharge: No Stand-Alone Forms: My [facility] Skilled Items Patient informed of condition?: Yes DNR: No Discharge Level of Care: Acute rehab Communicable Disease: No Discharge Prognosis: Stable Lines: None Urinary Catheter: No Medications and DC Order Prescriptions: New enoxaparin [Lovenox] 150 mg/mL Syringe 130 mg subcut BID Qty: 30 RF: 0 oxycodone [OxyContin] 15 mg Tablet,Oral Only,Ext.Rel.12 Hr 15 mg PO Q12 Qty: 60 RF: 0 oxycodone 5 mg capsule 5 mg PO Q6H PRN (Reason: pain) Qty: 60 RF: 0 polyethylene glycol 3350 [Miralax] 17 gram Powder In Packet 17 g PO DAILY PRN (Reason: constipation) Qty: 30 RF: 0 magnesium oxide 400 mg (241.3 mg magnesium) Tablet 800 mg PO BID Qty: 120 RF: 0 Continued albuterol sulfate 2.5 mg /3 mL (0.083 %) solution for nebulization 2.5 mg inhalation Q4H PRN (Reason: shortness of breath or wheezing) Qty: 1 RF: 5 ipratropium bromide 0.02 % solution 0.5 mg inhalation Q4H PRN (Reason: shortness of breath or wheezing) Qty: 360 RF: 1 levothyroxine 75 mcg tablet 75 mcg PO QAM Qty: 90 RF: 1 ipratropium bromide 21 mcg (0.03 %) spray,non-aerosol 2 spray intranasal BID Qty: 90 RF: 3 ondansetron 8 mg tablet,disintegrating 8 mg PO Q8H PRN (Reason: nausea and vomiting) Qty: 30 RF: 0 albuterol sulfate 90 mcg/actuation HFA aerosol inhaler 2 puffs inhalation Q4H PRN (Reason: Shortness Of Breath) Qty: 3 RF: 0 cholecalciferol (vitamin D3) 2,000 unit capsule 2,000 units PO QAM Qty: 90 RF: 0 omeprazole 20 mg capsule,delayed release(DR/EC) 20 mg PO QAM RF: 0 montelukast 10 mg tablet 10 mg PO QPM RF: 0 losartan 100 mg tablet 100 mg PO QAM RF: 0 fluticasone propionate 50 mcg/actuation spray,suspension 2 sprays intranasal BID RF: 0 multivitamin Tablet 1 tab PO QAM RF: 0 Discontinued oxycodone 5 mg tablet 5 mg PO Q8H PRN (Reason: pain) Qty: 30 RF: 0 amlodipine 5 mg tablet 5 mg PO QAM Qty: 90 RF: 2 magnesium oxide 500 mg capsule 500 mg PO BID RF: 0 Discharge Orders: Discharge Order (Routine); Ordered 04/24/21 Ordered By: Sabi Casanova/Other Patient Handouts: Nutrition During Chemotherapy Admission Data Admit Date/Time: 04/14/21 16:14 Attending Provider: Beto Bowie Admit Provider: Reuben Lima Primary Care Provider: Traci Patton Other Providers: Reuben Lima ; Yayo Campbell ; Lefty Dawn V. ; [facility] Other Interventions: Discharge Summary Assessment (RN) Last Done: 04/24/21 12:27 Supervising Physician Co-Signing Physician Notes Patient seen and examined on the day of discharge. I agree with the discharge summary by Sabi BURNHAM. I have reviewed the chart including labs, imaging and plans for discharge. patient slowly improving, needs rehab to get stronger plan for mediport placement and then chemotherapy fully recovered from her pneumonia at this point - Deconditioning, weakness: discharge to rehab - Colon cancer, splenic infarct: eating okay, moving bowels follow up with surgery for Mediport and then with Dr. Dawn for chemotherapy Coding Level of Care Code Established Pt D/C DAY MANAGEMENT >30 MINS Patient Type Established Diagnoses Debility R53.81 Abdominal pain R10.9 Hypoxia R09.02 Splenic infarction D73.5 Acute kidney injury N17.9 Adenocarcinoma of colon C18.9 History of colectomy Z90.49 Hypothyroidism E03.9 Irritable bowel syndrome K58.0 Irritable bowel syndrome type: with diarrhea Morbid obesity E66.01 Asthma J45.909 Chronic reflux esophagitis K21.0 Dyslipidemia E78.5 Hypomagnesemia E83.42 Time Spent (min) 45
--- NOTE | 2021-05-15 11:17 | Coding Query ---
To promote full compliance with coding requirements relating to patient care, provider participation is requested in all cases of tenon machine operator uncertainty. Please assist us with the question(s) below: Coding Question(s): The diagnosis below was documented in the 04/16 progress note and 04/18 then subsequently fell off all further documentation. Please indicate if it is still a possible diagnosis or ruled out. Physician's Response(s): GRAM-NEGATIVE PNEUMONIA ( ) Diagnosed and POA ( ) Diagnosed and not POA ( x ) Ruled out ( ) Other (please specify) Thank You, Eligio SOARES
== END 2021-04-24 12:28 | DRG 193 ==
LOC: ED 12:20 → SUATTDRO 16:14 → 2W 16:14
DX: Z68.41 Body mass index [BMI] 40.0-44.9, adult; M19.90 Unspecified osteoarthritis, unspecified site; R53.81 Other malaise; I74.8 Embolism and thrombosis of other arteries; Z87.891 Personal history of nicotine dependence; J21.9 Acute bronchiolitis, unspecified; D68.69 Other thrombophilia; Z79.890 Hormone replacement therapy; J96.01 Acute respiratory failure with hypoxia; J12.9 Viral pneumonia, unspecified; K21.00 Gastro-esophageal reflux disease with esophagitis, without bleeding; I10 Essential (primary) hypertension; C79.89 Secondary malignant neoplasm of other specified sites; N17.9 Acute kidney failure, unspecified; J45.909 Unspecified asthma, uncomplicated; E83.42 Hypomagnesemia; Z82.49 Family history of ischemic heart disease and other diseases of the circulatory system; Z79.899 Other long term (current) drug therapy; Z91.09 Other allergy status, other than to drugs and biological substances; J18.9 Pneumonia, unspecified organism; Z80.3 Family history of malignant neoplasm of breast; D73.5 Infarction of spleen; Z90.49 Acquired absence of other specified parts of digestive tract; C18.9 Malignant neoplasm of colon, unspecified; E03.9 Hypothyroidism, unspecified; E66.01 Morbid (severe) obesity due to excess calories